=== PATIENT | female | born 1990 | race Caucasian/White ===

== ENCOUNTER 2016-06-18 21:36 | Emergency (ER) | payer OTHER ==
[~2016-06-18] VITALS: Ht 162.6 cm; Wt 57.6 kg
[2016-06-18 23:07] LABS: Basophils # (auto) 0.1 uL; Basophils % (auto) 0.9 % (0.0-2.0); Eosinophils # (auto) 0.3 uL; Eosinophils % (auto) 3.1 % (0.0-7.0); Hematocrit 42.8 % (36.0-46.0); Hemoglobin 14.1 g/dL (12.2-16.2); Lymphocytes # (auto) 3.3 uL; Lymphocytes % (auto) 37.3 % (10.0-50.0); Mean Corpuscular Hemoglobin 29.8 pg (28.0-32.0); Mean Corpuscular Hgb Conc. 32.9 g/dL (32.0-36.0); Mean Corpuscular Volume 90.5 fL (80.0-100.0); Mean Platelet Volume 7.5 fL (7.4-10.4); Monocytes # (auto) 0.6 uL; Monocytes % (auto) 6.4 % (0.0-12.0); Neutrophils # (auto) 4.6 uL; Neutrophils % (auto) 52.3 % (37.0-80.0); Platelet Count (auto) 315 10^3/uL (140-450); Red Cell Distribution Width 12.9 % (11.6-16.0); White Blood Cell 8.8 10^3/uL (4.4-10.8)
[2016-06-18 23:28] LABS: Urine Bilirubin Negative (Negative); Urine Blood Negative /uL (Negative); Urine Color Yellow (Yellow); Urine Glucose Normal (Normal); Urine Nitrite Negative (Negative); Urine RBC <1 /hpf (0 - 4); Urine Squamous Epithelial Cell FEW /hpf (<5); Urine Urobilinogen Normal (Negative); Urine pH 6.5 (5.0-8.0)
[2016-06-18 23:28] LABS: Albumin 4.1 g/dL (3.4-5.0); BUN/Creatinine Ratio 20.9; Calcium 8.8 mg/dL (8.5-10.1); Potassium 3.9 mmol/L (3.5-5.1)
[2016-06-18 23:29] LABS: Urine Ketone 1+ (Negative)
[2016-06-18 23:30] LABS: Bilirubin, Total 0.4 mg/dL (0.2-1.0); Total Protein 7.9 g/dL (6.4-8.2)
[2016-06-19 07:22] VITALS: BP 128/87
== END 2016-06-19 08:10 | disposition home or self-care (01) ==
LOC: ER 21:41
DX: R42 Dizziness and giddiness (principal); R55 Syncope and collapse; R04.0 Epistaxis; R51 Headache; R53.1 Weakness; F10.10 Alcohol abuse, uncomplicated; F41.9 Anxiety disorder, unspecified; F17.210 Nicotine dependence, cigarettes, uncomplicated; L40.9 Psoriasis, unspecified
CPT/HCPCS: 36415; 71020; 80053; 81001; 81025; 83735; 84484; 85025; 85049; 93005; 99285; G0434

== ENCOUNTER 2020-10-29 04:05 | Emergency (ER) | payer OTHER ==
[~2020-10-29] VITALS: Ht 160 cm; Wt 57.6 kg
[2020-10-29 04:07] VITALS: BP 126/75
[2020-10-29] MEDS ORDERED: ALPRAZolam 0.5 MG TAB PO ONE (04:30)
[2020-10-29] MEDS ORDERED: ONDANSETRON ODT 4 MG TAB PO ONE (04:30)
[2020-10-29 06:59] LABS: Basophils # (auto) 0 10 ^3/uL (0-0.2); Basophils % (auto) 0.6 % (0.0-2.0); Eosinophils # (auto) 0.2 10 ^3/uL (0-0.8); Eosinophils % (auto) 2.3 % (0.0-7.0); Hematocrit 40.2 % (36.0-46.0); Hemoglobin 13.5 g/dL (12.2-16.2); Lymphocytes % (auto) 23.9 % (10.0-50.0); Mean Corpuscular Hemoglobin 29.7 pg (28.0-32.0); Mean Corpuscular Hgb Conc. 33.5 g/dL (32.0-36.0); Mean Corpuscular Volume 88.5 fL (80.0-100.0); Monocytes # (auto) 0.7 10 ^3/uL (0-1.3); Monocytes % (auto) 8.4 % (0.0-12.0); Neutrophils # (auto) 5.4 10 ^3/uL (1.6-8.6); Neutrophils % (auto) 64.8 % (37.0-80.0); Platelet Count (auto) 292 10^3/uL (140-450); Red Blood Cells 4.55 10^6/uL (4.0-5.20); Red Cell Distribution Width 13.1 % (11.8-14.3); White Blood Cell 8.3 10^3/uL (4.4-10.8)
[2020-10-29 07:29] LABS: Anion Gap 5 (5-15); Blood Urea Nitrogen 13 mg/dL (7-18); Calcium 8.7 mg/dL (8.5-10.1); Carbon Dioxide 27 mmol/L (21-32); Chloride 105 mmol/L (98-107); Glucose 87 mg/dL (74-106); Potassium 3.9 mmol/L (3.5-5.1); Sodium 137 mmol/L (136-145)
[2020-10-29] MEDS ORDERED: SODIUM CHLORIDE 0.9% 1,000 ML IV ONE (07:30)
[2020-10-29 07:32] LABS: Alcohol, Urine < 3.0 mg/dL (0-10); Amphetamine Screen, Urine NEGATIVE (NEGATIVE); Barbiturate Scree,Urine NEGATIVE (NEGATIVE); Benzodiazephine Screen, Urine POSITIVE (NEGATIVE); Cannabinoid Screen, Urine POSITIVE (NEGATIVE); Cocaine Screen, Urine NEGATIVE (NEGATIVE); Opiate Scree,Urine NEGATIVE (NEGATIVE); Phencyclidine Screen, Urine NEGATIVE (NEGATIVE)
[2020-10-29 07:36] LABS: BUN/Creatinine Ratio 18.1; GFR African American 122 mL/min; GFR Non-African American 101 mL/min
== END 2020-10-29 08:35 | disposition home or self-care (01) ==
LOC: ER 04:05
DX: F41.8 Other specified anxiety disorders (principal)
CPT/HCPCS: 36415; 80048; 80307; 84443; 84484; 85025; 96360; 99283; J7030; Q0162

== ENCOUNTER 2020-12-18 18:33 | Emergency (ER) | payer OTHER ==
[~2020-12-18] VITALS: Ht 160 cm; Wt 54.4 kg
[2020-12-18 20:32] VITALS: BP 145/88
[2020-12-18] MEDS ORDERED: LORazepam 0.5 MG TAB PO ONE (22:15)
[2020-12-18] MEDS ORDERED: ONDANSETRON ODT 4 MG TAB PO ONE (22:15)
== END 2020-12-18 22:31 | disposition home or self-care (01) ==
LOC: ER 18:33
DX: F41.0 Panic disorder [episodic paroxysmal anxiety] (principal); Z76.0 Encounter for issue of repeat prescription; F17.210 Nicotine dependence, cigarettes, uncomplicated; F31.9 Bipolar disorder, unspecified
CPT/HCPCS: 99283; Q0162

== ENCOUNTER 2022-01-26 15:25 | Emergency (ER) | payer OTHER ==
[~2022-01-26] VITALS: Ht 160 cm; Wt 55.3 kg
[2022-01-26 19:11] VITALS: BP 111/82
== END 2022-01-26 21:21 | disposition home or self-care (01) ==
LOC: ER 15:25
DX: T18.9XXA Foreign body of alimentary tract, part unspecified, initial encounter (principal); X58.XXXA Exposure to other specified factors, initial encounter; Y93.9 Activity, unspecified; Y92.89 Other specified places as the place of occurrence of the external cause; Y99.8 Other external cause status; F17.210 Nicotine dependence, cigarettes, uncomplicated
CPT/HCPCS: 70491; 74018

== ENCOUNTER 2025-04-04 17:34 | Inpatient (IN) | payer BC ==
[~2025-04-04] VITALS: Ht 160 cm; Wt 54.5 kg
[~2025-04-04 17:34] MED LIST: ZOFR4T PO
[2025-04-04] MEDS: LORazepam 2MG/ML-1ML VIAL IV ONE ×2 (17:35→20:15)
--- NOTE | 2025-04-04 17:40 | ED.PDOC ---
HPI (NEURO) HPI Comments This is a 34 year old female BIBA presenting to the ED with chief complaint of seizure. EMS reports patient was witnessed by to be experiencing multiple seizures prior to their arrival. EMS relays patient has had a total of 4 seizures en route and upon arrival to the ED. EMS states patient has history of seizures, ETOH dependency, and is currently on Keppra daily. EMS notes patient's had told them patient had last drank ETOH today. BG noted to be 100 en route. Patient unable to answer questions at this time due to actively seizing. Chief Complaint: Seizure Time Seen by MD: 17:37 Reviewed Notes: Nurses Notes, Crusher Loader Equipment Operator Notes, Medications, Allergies Information Source: Emergency Med Personnel Mode of Arrival: EMS Severity: Moderate Timing: Hours Duration: Since onset Prehospital treatment: None Seizure Quality: Tonic-clonic Seizure Location: Generalized Onset: At rest Circumstances: Spontaneous, Other (Recent ETOH consumption) During: LOC After: Confusion History of: Seizure Disorder Past Medical History PAST MEDICAL HISTORY: Seizures Surgical History: Denies all surgeries CASH MANAGER History: Denies all CASH MANAGER Hx Family History Family History: Reviewed,noncontributory to illness, Family hx of DM, Family hx of Cancer, Family hx of heart willard Social History Smoker: Non-Smoker Alcohol: Heavy Drugs: Denies Drug Use Lives In: Home Constitutional: denies: chills, diaphoresis, fatigue, fever, malaise, sweats, weakness, others EENTM: denies: blurred vision, double vision, ear bleeding, ear discharge, ear drainage, ear pain, ear ringing, eye pain, eye redness, hearing loss, mouth pain, mouth swelling, nasal discharge, nose bleeding, nose congestion, nose pain, photophobia, tearing, throat pain, throat swelling, voice changes, others Respiratory: denies: cough, hemoptysis, orthopnea, SOB at rest, shortness of breath, SOB with excertion, stridor, wheezing, others Cardiovascular: denies: chest pain, dizzy spells, diaphoresis, Dyspnea on exertion, edema, irregular heart beat, left arm pain, lightheadedness, palpitations, PND, syncope, others Gastrointestinal: denies: abdomen distended, abdominal pain, blood streaked bowels, constipated, diarrhea, dysphagia, difficulty swallowing, hematemesis, melena, nausea, poor appetite, poor fluid intake, rectal bleeding, rectal pain, vomiting, others Genitourinary: denies: abnormal vagina bleeding, burning, dyspareunia, dysuria, flank pain, frequency, hematuria, incontinence, pain, , vagina discharge, urgency, others Neurological: reports: seizure; denies: dizziness, fainting, headache, left sided numbness, left sided weakness, numbness, paresthesia, pre-existing deficit, right sided numbness, right sided weakness, speech problems, tingling, tremors, weakness, others Musculoskeletal: denies: back pain, gout, joint pain, joint swelling, muscle pain, muscle stiffness, neck pain, others Integumetry: denies: bruises, change in color, change in hair/nails, dryness, laceration, lesions, lumps, rash, wounds, others Allergic/Immunocompromised: denies: Difficulty Healing, Frequent Infections, Hives, Itching, others Hematologic/Lymphatic: denies: anemia, blood clots, easy bleeding, easy bruising, swollen glands, others Endocrine: denies: excessive hunger, excessive sweating, excessive thirst, excessive urination, flushing, intolerance to cold, intolerance to heat, unexplained weight gain, unexplained weight loss, others Psychiatric: denies: anxiety, bipolar disorder, depression, hopeless, panic disorder, schizophrenia, sleepless, suicidal, others All Other Systems: Reviewed and Negative Physical Exam General Appearance: No Apparent Distress, Normal, Other (Smells of alcohol, no external signs of trauma) HEENT: Normal ENT Inspection, Pharynx Normal, TMs Normal Neck: Full Range of Motion, Non-Tender, Normal, Normal Inspection Respiratory: Chest Non-Tender, Lungs Clear, No Accessory Muscle Use, No Respiratory Distress, Normal Breath Sounds Cardiovascular: No Edema, No JVD, No Murmur, No Gallop, Normal Peripheral Pulses, Regular Rate/Rhythm Breast Exam: Deferred Gastrointestinal: No Organomegaly, Non Tender, No Pulsatile Mass, Normal Bowel Sounds, Soft Genitalia: Deferred Pelvic: Deferred Rectal: Deferred Extremities: No calf tenderness, Normal capillary refill, Normal inspection, Normal range of motion, Non-tender, No pedal edema Musculoskeletal : Apperance: Normal Neurologic: Alert, elementary school librarian II-XII nml as Tested, No Motor Deficits, Normal Affect, Normal Mood, No Sensory Deficits, Seizure, Other (Post-seizure) Cerebellar Function: Normal Reflexes: Normal Skin: Dry, Normal Color, Warm Lymphatic: No Adenopathy Was a procedure done? Was a procedure done?: No Differential Diagnosis (SZ) Seizure: Psychogenic Seizure, Alcohol Withdrawl, Hypoglycemia, Hyponatremia, Epilepsy-Break Through X-Ray, Labs, Meds, VS Vital Signs Date Time Temp Pulse Resp B/P (MAP) Pulse Ox O2 Delivery O2 Flow Rate FiO2 04/04/25 17:45 87 13 98 Room Air* 0 21 04/04/25 17:45 87 13 102/70 (81) 98 04/04/25 17:35 97.5 99 95 103/66 16 97.5 Lab Test 04/04/25 18:30 04/04/25 18:04 Range/Units Urine Test Negative Negative Urine Opiates Screen Neg NEGATIVE Urine Fentanyl Screen Neg NEGATIVE Urine Barbiturates Screen Neg NEGATIVE Urine Phencyclidine Screen Neg NEGATIVE Urine Amphetamines Screen Neg NEGATIVE Urine Benzodiazepines Screen Pos NEGATIVE Urine Cocaine Screen Neg NEGATIVE Urine Cannabinoids Screen Neg NEGATIVE White Blood Count 8.8 4.4-10.8 10^3/uL Red Blood Count 4.39 4.0-5.20 10^6/uL Hemoglobin 13.1 12.2-16.2 g/dL Hematocrit 38.5 36.0-46.0 % Mean Corpuscular Volume 87.7 80.0-100.0 fL Mean Corpuscular Hemoglobin 29.9 28.0-32.0 pg Mean Corpuscular Hemoglobin Concent 34.1 32.0-36.0 g/dL Red Cell Distribution Width 13.1 11.8-14.3 % Platelet Count 262 140-450 10^3/uL Mean Platelet Volume 7.0 6.9-10.8 fL Neutrophils (%) (Auto) 68.6 37.0-80.0 % Lymphocytes (%) (Auto) 24.6 10.0-50.0 % Monocytes (%) (Auto) 5.5 0.0-12.0 % Eosinophils (%) (Auto) 0.6 0.0-7.0 % Basophils (%) (Auto) 0.7 0.0-2.0 % Neutrophils # (Auto) 6.0 1.6-8.6 10 ^3/uL Lymphocytes # (Auto) 2.2 0.4-5.4 10 ^3/uL Monocytes # (Auto) 0.5 0-1.3 10 ^3/uL Eosinophils # (Auto) 0 0-0.8 10 ^3/uL Basophils # (Auto) 0.1 0-0.2 10 ^3/uL Nucleated Red Blood Cells 0.0 % Sodium Level 142 136-145 mmol/L Potassium Level 4.5 3.5-5.1 mmol/L Chloride Level 104 98-107 mmol/L Carbon Dioxide Level 26 20-31 mmol/L Anion Gap 12 5-15 Blood Urea Nitrogen 11 9-23 mg/dL Creatinine 0.66 0.550-1.02 mg/dL Glomerular Filtration Rate Calc 118 >90 mL/min BUN/Creatinine Ratio 16.7 10.0-20.0 Serum Glucose 91 74-106 mg/dL Calcium Level 9.2 8.7-10.4 mg/dL Magnesium Level 2.0 1.6-2.6 mg/dL Total Bilirubin 0.4 0.2-1.0 mg/dL Aspartate Amino Transferase (AST) 14 13-40 U/L Alanine Aminotransferase (ALT) 16 7-40 U/L Alkaline Phosphatase 55 46-116 U/L Total Protein 7.0 5.7-8.2 g/dL Albumin 4.4 3.2-4.8 g/dL Beta HCG, Quantitative 1.1 L 1.5-4.2 mIU/mL Plasma/Serum Blood Alcohol 304.3 H <10 mg/dL Current Medications Medications (Trade) Dose Ordered Sig/Josephine Route Start Time Stop Time Status Last Admin Sodium Chloride 1,000 ml @ 1,000 mls/hr Q1H ONCE IV 04/04/25 17:45 04/04/25 18:44 DC 04/04/25 18:06 Thiamine HCl 100 mg ONCE ONCE IV 04/04/25 17:45 04/04/25 17:46 DC 04/04/25 18:07 Folic Acid 1 mg/ Dextrose 50.2 ml @ 200.8 mls/ hr ONCE ONCE INJ 04/04/25 17:45 04/04/25 17:59 DC 04/04/25 17:45 Lorazepam (Ativan Inj) 2 mg ONCE ONCE IV 04/04/25 18:00 04/04/25 18:01 DC 04/04/25 17:35 Levetiracetam 100 ml @ 400 mls/hr ONCE ONCE IV 04/04/25 18:15 04/04/25 18:29 DC 04/04/25 18:15 Ondansetron HCl (Zofran) 4 mg ONCE ONCE IV 04/04/25 19:30 04/04/25 19:31 DC 04/04/25 20:15 Lorazepam (Ativan Inj) 2 mg ONCE ONCE IV 04/04/25 20:00 04/04/25 20:01 DC 04/04/25 20:15 Time of 1ST Reevaluation: 18:36 Reevaluation 1ST: Improved Patient Education/Counseling: Pt Unresponsive Family Education/Counseling: No Family Present Departure 1 Departure Time of Disposition: 19:45 (34-year-old female with past medical history of alcohol abuse, seizure disorder brought in for evaluation of numerous seizures noted today. History was taken from the medics got the history at home. Has had several seizures throughout the day. No noted head trauma with the seizures. For this reason does not require CT imaging of the head. Patient had another 1-2 episodes of generalized tonic-clonic seizure-like activity with the medics. Fingerstick within normal limits. Last reported alcohol beverage was prior to arrival. The patient was actively seizing upon arrival she was given 2 mg IV Ativan. Consider possible alcohol withdrawal seizure given her seizure disorder. However, alcohol level is critically elevated in the 300s, patient is currently intoxicated. Consider possible medication noncompliance, subthera peutic antiepileptic medications. Is supposed to take Keppra. Was given a 1 time IV Keppra dose here. Was also given 1 L normal saline IV fluid bolus, IV thiamine, IV folic acid given her strong history of alcohol abuse. CBC with no evidence of critical leukocytosis or significant anemia. Metabolic panel with no evidence of any acute electrolyte abnormalities or acute kidney i nsufficiency. Urine drug screen is only positive for benzodiazepines, which we did give the patient. Patient will be admitted given numerous seizures noted today.) Impression: Primary Impression: Generalized tonic-clonic seizure Additional Impressions: Alcohol abuse Alcohol poisoning Disposition: 09 ADMITTED INPATIENT Admit to: [facility] Condition: Fair Critical Care Note Critical Care Time?: Yes (30 min-critical care time only) Critical care comment: Patient with seizure disorder, alcohol abuse with numerous qiiv-ye-unhy seizures requiring IV Ativan, loading of IV Keppra, IV hydration and IV vitamins given alcohol abuse. Stability Stability form required: No Heart Score Heart Score: Heart Score Response (Comments) Value History N/A 0 EKG N/A 0 Age N/A 0 Risk Factors N/A 0 Troponin N/A 0 Total 0 I personally scribed for REGI WEBB MD ([email or web address]) on 04/04/25 at 17:40. Electronically submitted by Leno Gallegos ([email or web address]). REGI WEBB MD Apr 04, 2025 17:40
[2025-04-04 17:45] VITALS: PULSE 87; RESP 13; O2SAT 98
[2025-04-04] MEDS: FOLIC ACID 1 MG in D5W 5% 50 ML INJ ONE (17:45)
[2025-04-04] MEDS: SODIUM CHLORIDE 0.9% 1,000 ML IV ONE (18:06)
[2025-04-04] MEDS: THIAMINE 100mg/ml INJ (200mg/2ml VIAL) IV ONE (18:07)
[2025-04-04] MEDS: levETIRAcetam 1000 mg/100ml 100 ML IV ONE (18:15)
[2025-04-04 18:16] LABS: Hematocrit 38.5 % (36.0-46.0); Hemoglobin 13.1 g/dL (12.2-16.2); Mean Corpuscular Hemoglobin 29.9 pg (28.0-32.0); Mean Corpuscular Volume 87.7 fL (80.0-100.0); Nucleated Red Blood Cells % 0.0 %
[2025-04-04 18:33] LABS: Alanine Aminotransferase 16 U/L (7-40); Albumin 4.4 g/dL (3.2-4.8); Alkaline Phosphatase 55 U/L (46-116); Anion Gap 12 (5-15); BUN/Creatinine Ratio 16.7 (10.0-20.0); Blood Urea Nitrogen 11 mg/dL (9-23); Calcium 9.2 mg/dL (8.7-10.4); Carbon Dioxide 26 mmol/L (20-31); Chloride 104 mmol/L (98-107); Glucose 91 mg/dL (74-106); Magnesium 2.0 mg/dL (1.6-2.6); Potassium 4.5 mmol/L (3.5-5.1); Sodium 142 mmol/L (136-145); Total Protein 7.0 g/dL (5.7-8.2)
[2025-04-04 18:34] LABS: Bilirubin, Total 0.4 mg/dL (0.2-1.0)
[2025-04-04 19:13] LABS: Benzodiazephine Screen, Urine Pos (NEGATIVE)
[2025-04-04 19:31] LABS: Amphetamine Screen, Urine Neg (NEGATIVE); Barbiturate Scree,Urine Neg (NEGATIVE); Cannabinoid Screen, Urine Neg (NEGATIVE); Cocaine Screen, Urine Neg (NEGATIVE); Opiate Scree,Urine Neg (NEGATIVE); Phencyclidine Screen, Urine Neg (NEGATIVE)
[2025-04-04 20:00] VITALS: PULSE 85; RESP 15; TEMP 98.8; O2SAT 99
[2025-04-04] MEDS: ONDANSETRON HCL 4 MG/2 ML VIAL IV ONE (20:15)
[2025-04-04] MEDS ORDERED: DOCUSATE SOD 100 MG CAP PO PRN (20:45)
[2025-04-04] MEDS ORDERED: LORazepam 2MG/ML-1ML VIAL IV PRN (20:45)
[2025-04-04] MEDS ORDERED: HYDROcodone-ACET 5/325MG TAB PO PRN (20:45)
[2025-04-04] MEDS ORDERED: ACETAMINOPHEN 500 MG TAB or CAP PO PRN (21:00)
--- NOTE | 2025-04-04 21:40 | DVHHP2 ---
History of Present Illness Reason for Visit: Generalized tonic-clonic seizure History of Present Illness The patient is a 34-year-old female with past medical history of seizure and EtOH dependency presented to [facility] ED with complaint of seizures activities. As reported by EMS, patient was witnessed by to be experiencing multiple seizure activities prior to arrival. EMS reports that, patient had total of 4 tonic-clonic seizures before arrival to the ED. Patient was seen and evaluated in the ED, laboratory data shows WBC 8.8, platelets 262, sodium 142, potassium 4.5, BUN 11, creatinine 0.66, glucose 91, calcium 9.2, serum alcohol 304.3, blood pressure 102/70, heart rate 88, temperature 97.6 F, O2 saturation 98% on room air. Please see medication orders section in the computer. On my assessment, patient denied chest pain, no headache, dizziness, diaphoresis, shortness of breaths, no diarrhea, nausea, vomiting, fever, no chills. Patient was admitted for further evaluation and medical management. Past Medical History Seizures Past Surgical History Denies all surgeries Family History Reviewed, noncontributory to the management of this case. Past Social History The patient lives at home, denies smoking, alcohol or illicit drugs abuse. Review of Systems Constitutional: Yes: Weakness; No: Fever, Chills, Sweats, Malaise, Other Eyes: No: Pain, Vision change, Conjunctivae inflammation, Eyelid inflammation, Other, Redness ENT: No: Ear pain, Ear discharge, Nose pain, Nose discharge, Nose congestion, Mouth pain, Mouth swelling, Throat pain, Throat swelling, Other Respiratory: No: Cough, Dry, Shortness of breath, SOB with excertion, Wheezing, Hemoptysis, Pleuritic Pain, Sputum, Wheezing, Other Cardiovascular: No: Chest Pain, Palpitations, Orthopnea, Paroxysmal Noc. Dyspnea, Edema, Lt Headedness, Other Gastrointestinal: No: Nausea, Vomiting, Abdominal Pain, Diarrhea, Constipation, Melena, Hematochezia, Other Genitourinary: No Dysuria, No Frequency, No Incontinence, No Hematuria, No Retention, No Other Musculoskeletal: No: other, neck pain, shoulder pain, arm pain, back pain, hand pain, leg pain, foot pain Skin: No: Rash, Lesions, Jaundice, Bruising, Other Neurological: Seizures; No: Weakness, Numbness, Incoordination, Change in speech, Confusion, Other Allergies: Coded Allergies: NO KNOWN ALLERGIES (Unverified , 12/29/24) Medications Current Medications Medications Dose Ordered Sig/Josephine Route Start Time Stop Time Status Last Admin Dose Admin Lorazepam 1 mg Q2HP PRN IV 04/04/25 20:45 Levetiracetam 100 ml @ 400 mls/hr BID IV 04/04/25 22:00 Thiamine HCl 100 mg DAILY PO 04/05/25 10:00 Folic Acid 1 mg DAILY PO 04/05/25 10:00 Sodium Chloride 10 ml Q8HR IV 04/04/25 22:00 Acetaminophen/ Hydrocodone Bitart 1 tab Q4HP PRN PO 04/04/25 20:45 Ondansetron HCl 4 mg Q4HP PRN IV 04/04/25 20:45 Docusate Sodium 100 mg BIDPRN PRN PO 04/04/25 20:45 Acetaminophen 500 mg Q6HP PRN PO 04/04/25 21:00 Nitroglycerin 0.4 mg Q5MINP PRN SL 04/04/25 21:45 Morphine Sulfate 2 mg Q30M PRN IV 04/04/25 21:45 Exam Vital Signs Vital Signs Date Time Temp Pulse Resp B/P (MAP) Pulse Ox O2 Delivery O2 Flow Rate FiO2 04/04/25 17:45 87 13 98 Room Air* 0 21 04/04/25 17:45 102/70 (81) 04/04/25 17:35 97.5 97.5 General Appearance: Alert, Oriented X3, Cooperative, No acute distress HEENT: Atraumatic, PERRLA, EOMI, Mucous membr. moist/pink Respiratory: Clear to auscultation, Normal air movement Cardiovascular: Regular rate, Normal S1, Normal S2, No murmurs Abdominal: Normal bowel sounds, Soft, No tenderness, No hepatospenomegaly Extremities: No clubbing, No cyanosis, No edema, Normal pulses, No tender ness/swelling Skin: No rashes, No breakdown, No significant lesion Neuro: Normal speech, Normal tone, Sensation intact, Cranial nerves 3-12 NL, Reflexes 2+, Other (Seizures) Psych/Mental Status: Mental status NL, Mood NL Labs/Xrays Labs Test 04/04/25 18:30 04/04/25 18:04 Range/Units Urine Test Negative Negative Urine Opiates Screen Neg NEGATIVE Urine Fentanyl Screen Neg NEGATIVE Urine Barbiturates Screen Neg NEGATIVE Urine Phencyclidine Screen Neg NEGATIVE Urine Amphetamines Screen Neg NEGATIVE Urine Benzodiazepines Screen Pos NEGATIVE Urine Cocaine Screen Neg NEGATIVE Urine Cannabinoids Screen Neg NEGATIVE White Blood Count 8.8 4.4-10.8 10^3/uL Red Blood Count 4.39 4.0-5.20 10^6/uL Hemoglobin 13.1 12.2-16.2 g/dL Hematocrit 38.5 36.0-46.0 % Mean Corpuscular Volume 87.7 80.0-100.0 fL Mean Corpuscular Hemoglobin 29.9 28.0-32.0 pg Mean Corpuscular Hemoglobin Concent 34.1 32.0-36.0 g/dL Red Cell Distribution Width 13.1 11.8-14.3 % Platelet Count 262 140-450 10^3/uL Mean Platelet Volume 7.0 6.9-10.8 fL Neutrophils (%) (Auto) 68.6 37.0-80.0 % Lymphocytes (%) (Auto) 24.6 10.0-50.0 % Monocytes (%) (Auto) 5.5 0.0-12.0 % Eosinophils (%) (Auto) 0.6 0.0-7.0 % Basophils (%) (Auto) 0.7 0.0-2.0 % Neutrophils # (Auto) 6.0 1.6-8.6 10 ^3/uL Lymphocytes # (Auto) 2.2 0.4-5.4 10 ^3/uL Monocytes # (Auto) 0.5 0-1.3 10 ^3/uL Eosinophils # (Auto) 0 0-0.8 10 ^3/uL Basophils # (Auto) 0.1 0-0.2 10 ^3/uL Nucleated Red Blood Cells 0.0 % Sodium Level 142 136-145 mmol/L Potassium Level 4.5 3.5-5.1 mmol/L Chloride Level 104 98-107 mmol/L Carbon Dioxide Level 26 20-31 mmol/L Anion Gap 12 5-15 Blood Urea Nitrogen 11 9-23 mg/dL Creatinine 0.66 0.550-1.02 mg/dL Glomerular Filtration Rate Calc 118 >90 mL/min BUN/Creatinine Ratio 16.7 10.0-20.0 Serum Glucose 91 74-106 mg/dL Calcium Level 9.2 8.7-10.4 mg/dL Magnesium Level 2.0 1.6-2.6 mg/dL Total Bilirubin 0.4 0.2-1.0 mg/dL Aspartate Amino Transferase (AST) 14 13-40 U/L Alanine Aminotransferase (ALT) 16 7-40 U/L Alkaline Phosphatase 55 46-116 U/L Total Protein 7.0 5.7-8.2 g/dL Albumin 4.4 3.2-4.8 g/dL Beta HCG, Quantitative 1.1 L 1.5-4.2 mIU/mL Plasma/Serum Blood Alcohol 304.3 H <10 mg/dL SEPSIS Sepsis Screen Date sepsis recognized/suspect: Apr 04, 2025 Time Sepsis recognized/suspect: 1738 Recent Procedure: No On Antibiotic Therapy: No Respiratory Rate >20: No Heart Rate >90: No Temp<36 C (96.8 F) or >38.3 C: No SBP <90 or MAP <65 mmHG: No New Acute Mental Status Change: No Is the patient on CPAP, BIPAP,: No Physician Orders Lorazepam 2mg/Ml Inj (Ativan Inj) (04/04/25 20:45) Levetiracetam 500 Mg/100ml (Levetiraceta (04/04/25 22:00) Thiamine Tab (04/05/25 10:00) Folic Acid Tablet (04/05/25 10:00) Allergies (04/04/25 20:42) Code Status (04/04/25 20:42) Sodium Chloride Lock (Saline Lock Ns) (04/04/25 22:00) Oxygen Per Hour (04/04/25 20:42) Hydrocodone-Acet 5/325mg Tab ([place] 5/32 (04/04/25 20:45) Ondansetron Hcl (Zofran) (04/04/25 20:45) Docusate Sodium Capsule (Colace Capsule) (04/04/25 20:45) Fall Risk Precautions In Place QSHIFT (04/04/25 20:42) Complete Blood Count (04/05/25 04:00) Comprehensive Metabolic Panel (04/05/25 04:00) Cardiac Diet-2gna,Lofat,Lochol (04/05/25 Breakfast) Condition: Serious (04/04/25 20:42) Maintain Bed Rest (04/04/25 20:42) Sequential Compression Device (04/04/25 ) Acetaminophen Tab Or Cap (Tylenol Tablet (04/04/25 21:00) Admit (04/04/25 21:34) Nitroglycerin Sublingual (Ntrostat Subli (04/04/25 21:45) Morphine Sulfate Injection (04/04/25 21:45) Stat Ekg For Chest Pain (04/04/25 21:34) Notify Md Of Changes From Base (04/04/25 21:34) Registered Nurse Bone Marrow Transplant For 24 Hours (04/04/25 21:34) Emergency Dysrhythmia Protocol (04/04/25 21:34) Rhythm Strips Once Every Shift (04/04/25 21:34) Oxygen By Nasal Cannula (04/04/25 21:34) Vital Signs Date Time Temp Pulse Resp B/P (MAP) Pulse Ox O2 Delivery O2 Flow Rate FiO2 04/04/25 17:45 87 13 98 Room Air* 0 21 04/04/25 17:45 87 13 102/70 (81) 98 04/04/25 17:35 97.5 99 95 103/66 16 97.5 Laboratory Tests Test 04/04/25 18:04 White Blood Count 8.8 10^3/uL (4.4-10.8) Medications Medications Dose Ordered Sig/Josephine Route Start Time Stop Time Status Last Admin Dose Admin Folic Acid 1 mg/ Dextrose 50.2 ml @ 200.8 mls/ hr ONCE ONCE INJ 04/04/25 17:45 04/04/25 17:59 DC 04/04/25 17:45 200.8 MLS/HR Levetiracetam 100 ml @ 400 mls/hr ONCE ONCE IV 04/04/25 18:15 04/04/25 18:29 DC 04/04/25 18:15 400 MLS/HR Lorazepam 2 mg ONCE ONCE IV 04/04/25 18:00 04/04/25 18:01 DC 04/04/25 17:35 2 MG Lorazepam 2 mg ONCE ONCE IV 04/04/25 20:00 04/04/25 20:01 DC 04/04/25 20:15 2 MG Ondansetron HCl 4 mg ONCE ONCE IV 04/04/25 19:30 04/04/25 19:31 DC 04/04/25 20:15 4 MG Sodium Chloride 1,000 ml @ 1,000 mls/hr Q1H ONCE IV 04/04/25 17:45 04/04/25 18:44 DC 04/04/25 18:06 1,000 MLS/HR Thiamine HCl 100 mg ONCE ONCE IV 04/04/25 17:45 04/04/25 17:46 DC 04/04/25 18:07 100 MG Assessment/Plan Assessment/Plan Generalized tonic-clonic seizure Alcohol abuse Alcohol poisoning Generalized weakness Plan 1. Admit to telemetry unit 2. Breathing treatment 3. Pain control management 4. Management of fluids and electrolytes 5. Consultation for hospitalist 6. Diagnostic tests head CT 7. DVT prophylaxis-on SCDs 8. Repeat labs CBC, CMP in a.m. 9. Continue with current medical management 10. Treatment plan discussed with patient and RN. Patient verbalized understanding. Plan discussed with: Patient, Other (RN) My Orders Orders - MISSY MINOR DNP Procedure Category Date Status Time Lorazepam 2mg/Ml Inj PHA 04/04/25 In Process (Ativan Inj) 20:45 Levetiracetam 500 PHA 04/04/25 In Process Mg/100ml (Levetiraceta 22:00 Thiamine Tab PHA 04/05/25 In Process 10:00 Folic Acid Tablet PHA 04/05/25 In Process 10:00 Allergies LISA 04/04/25 In Process 20:42 Code Status CODE 04/04/25 Transmitted 20:42 Sodium Chloride Lock PHA 04/04/25 In Process (Saline Lock Ns) 22:00 Oxygen Per Hour RT 04/04/25 Transmitted 20:42 Hydrocodone-Acet PHA 04/04/25 In Process 5/325mg Tab ([place] 20:45 Ondansetron Hcl PHA 04/04/25 In Process (Zofran) 20:45 Docusate Sodium PHA 04/04/25 In Process Capsule (Colace 20:45 Fall Risk Precautions LISA 04/04/[address] 20:42 Complete Blood Count LAB 04/05/25 Verified 04:00 Comprehensive LAB 04/05/25 Verified Metabolic Panel 04:00 Cardiac DIET 04/05/25 Transmitted Diet-2gna,Lofat,Lochol Breakfast Condition: Serious LISA 04/04/25 In Process 20:42 Maintain Bed Rest LISA 04/04/25 In Process 20:42 Sequential LISA 04/04/25 In Process Compression Device Acetaminophen Tab Or PHA 04/04/25 In Process Cap (Tylenol Tablet 21:00 Admit ADMIT 04/04/25 Transmitted 21:34 Nitroglycerin [facility] 04/04/25 In Process Sublingual (Ntrostat 21:45 Morphine Sulfate [facility] 04/04/25 In Process Injection 21:45 Stat Ekg For Chest [facility] 04/04/25 In Process Pain 21:34 Notify Md Of Changes [facility] 04/04/25 In Process From Base 21:34 Registered Nurse Bone Marrow Transplant For [facility] 04/04/25 In Process 24 Hours 21:34 Emergency Dysrhythmia [facility] 04/04/25 In Process Protocol 21:34 Rhythm Strips Once [facility] 04/04/25 In Process Every Shift 21:34 Oxygen By Nasal 04/04/25 Transmitted Cannula 21:34 Problem List: (1) Generalized tonic-clonic seizure (2) Alcohol abuse (3) Alcohol poisoning (4) Generalized weakness Date of Service: Apr 04, 2025 Billing Provider: MISSY MINOR DNP Common Visit Codes: [id number] INP/OBS CARE (HIGH) MISSY MINOR DNP Apr 04, 2025 21:40
[2025-04-04] MEDS ORDERED: NITROGLYCERIN 0.4 MG SL TAB SL PRN (21:45)
[2025-04-04] MEDS ORDERED: MORPHINE SULFATE INJ 2 MG/ml SYRG IV PRN (21:45)
[2025-04-04] MEDS: SODIUM CHLOR 0.9% PF (SALINE LOCK) 10ML VIAL/SYR IV SCH (22:08)
[2025-04-04] MEDS: levETIRAcetam 500 mg/100ml 100 ML IV SCH (22:13)
[2025-04-05] MEDS: ONDANSETRON HCL 4 MG/2 ML VIAL IV PRN (00:09)
[2025-04-05] MEDS ORDERED: MELATONIN 5 MG TAB PO ONE (01:15)
[2025-04-05] MEDS: TEMAZEPAM 15 MG CAP PO ONE (01:31)
[2025-04-05 01:52] VITALS: BP 100/65; PULSE 87; RESP 16; O2SAT 94
[2025-04-05 02:20] VITALS: BP 87/51
[2025-04-05] MEDS: LACTATED RINGER'S 500 ML IV ONE (03:06)
[2025-04-05 03:34] VITALS: BP 86/52; PULSE 85; RESP 15; O2SAT 95
[2025-04-05 03:59] VITALS: BP 96/59; PULSE 85; RESP 14; O2SAT 95
[2025-04-05 04:23] LABS: Hematocrit 33.3 % (36.0-46.0); Hemoglobin 10.9 g/dL (12.2-16.2); Mean Corpuscular Hemoglobin 29.6 pg (28.0-32.0); Mean Corpuscular Volume 90.5 fL (80.0-100.0); Nucleated Red Blood Cells % 0.0 %
[2025-04-05 04:43] LABS: Albumin 3.4 g/dL (3.2-4.8); Alkaline Phosphatase 47 U/L (46-116); Anion Gap 11 (5-15); BUN/Creatinine Ratio 8.6 (10.0-20.0); Carbon Dioxide 21 mmol/L (20-31); Glucose 79 mg/dL (74-106); Potassium 4.2 mmol/L (3.5-5.1)
[2025-04-05 04:44] LABS: Alanine Aminotransferase < 9 U/L (7-40); Bilirubin, Total 0.2 mg/dL (0.2-1.0); Blood Urea Nitrogen 5 mg/dL (9-23); Calcium 7.6 mg/dL (8.7-10.4); Chloride 114 mmol/L (98-107); Sodium 146 mmol/L (136-145); Total Protein 5.7 g/dL (5.7-8.2)
[2025-04-05 05:02] VITALS: BP 97/60; PULSE 87; RESP 14; O2SAT 95
[2025-04-05] MEDS ORDERED: FOLIC ACID 1 MG TAB PO SCH (10:00)
[2025-04-05] MEDS ORDERED: THIAMINE HCL 100 MG TAB PO SCH (10:00)
--- NOTE | 2025-04-05 14:07 | DVHDS2 ---
Discharge Summary Date of Admission Apr 04, 2025 at 21:34 Date of Discharge: Apr 05, 2025 Labs/Diagnostic Data: Laboratory Results Test 04/05/25 04:06 04/04/25 18:30 04/04/25 18:04 White Blood Count 5.7 10^3/uL (4.4-10.8) Red Blood Count 3.68 10^6/uL (4.0-5.20) Hemoglobin 10.9 g/dL (12.2-16.2) Hematocrit 33.3 % (36.0-46.0) Mean Corpuscular Volume 90.5 fL (80.0-100.0) Mean Corpuscular Hemoglobin 29.6 pg (28.0-32.0) Mean Corpuscular Hemoglobin Concent 32.8 g/dL (32.0-36.0) Red Cell Distribution Width 13.8 % (11.8-14.3) Platelet Count 247 10^3/uL (140-450) Mean Platelet Volume 7.2 fL (6.9-10.8) Neutrophils (%) (Auto) 51.0 % (37.0-80.0) Lymphocytes (%) (Auto) 37.2 % (10.0-50.0) Monocytes (%) (Auto) 8.2 % (0.0-12.0) Eosinophils (%) (Auto) 2.6 % (0.0-7.0) Basophils (%) (Auto) 1.0 % (0.0-2.0) Neutrophils # (Auto) 2.9 10 ^3/uL (1.6-8.6) Lymphocytes # (Auto) 2.1 10 ^3/uL (0.4-5.4) Monocytes # (Auto) 0.5 10 ^3/uL (0-1.3) Eosinophils # (Auto) 0.1 10 ^3/uL (0-0.8) Basophils # (Auto) 0.1 10 ^3/uL (0-0.2) Nucleated Red Blood Cells 0.0 % Sodium Level 146 mmol/L (136-145) Potassium Level 4.2 mmol/L (3.5-5.1) Chloride Level 114 mmol/L (98-107) Carbon Dioxide Level 21 mmol/L (20-31) Anion Gap 11 (5-15) Blood Urea Nitrogen 5 mg/dL (9-23) Creatinine 0.58 mg/dL (0.550-1.02) Glomerular Filtration Rate Calc 122 mL/min (>90) BUN/Creatinine Ratio 8.6 (10.0-20.0) Serum Glucose 79 mg/dL (74-106) Calcium Level 7.6 mg/dL (8.7-10.4) Total Bilirubin 0.2 mg/dL (0.2-1.0) Aspartate Amino Transferase (AST) 11 U/L (13-40) Alanine Aminotransferase (ALT) < 9 U/L (7-40) Alkaline Phosphatase 47 U/L (46-116) Total Protein 5.7 g/dL (5.7-8.2) Albumin 3.4 g/dL (3.2-4.8) Urine Test Negative (Negative) Urine Opiates Screen Neg (NEGATIVE) Urine Fentanyl Screen Neg (NEGATIVE) Urine Barbiturates Screen Neg (NEGATIVE) Urine Phencyclidine Screen Neg (NEGATIVE) Urine Amphetamines Screen Neg (NEGATIVE) Urine Benzodiazepines Screen Pos (NEGATIVE) Urine Cocaine Screen Neg (NEGATIVE) Urine Cannabinoids Screen Neg (NEGATIVE) Magnesium Level 2.0 mg/dL (1.6-2.6) Beta HCG, Quantitative 1.1 mIU/mL (1.5-4.2) Plasma/Serum Blood Alcohol 304.3 mg/dL (<10) Other Laboratory Tests 04/05/25 04:06 Brief Hx & Hospital Course: 34-year-old female with past medical history of seizure and EtOH dependency presented to [facility] ED with complaint of seizures activities. As reported by EMS, patient was witnessed by to be experiencing multiple seizure activities prior to arrival. EMS reports that, patient had total of 4 tonic-clonic seizures before arrival to the ED. Patient was seen and evaluated in the ED, laboratory data shows WBC 8.8, platelets 262, sodium 142, potassium 4.5, BUN 11, creatinine 0.66, glucose 91, calcium 9.2, serum alcohol 304.3, blood pressure 102/70, heart rate 88, temperature 97.6 F, O2 saturation 98% on room air. Please see medication orders section in the computer. Patient was admitted for further evaluation and management. Patient was assigned to ia by the hospitalist team today but patient left against medical advice before completion of workup and treatment. Condition at Discharge: Undetermined Final Diagnosis/Problems List Patient left against medical advice Discharge Disposition: AMA SNF Discharge Will this Physician continue t: No Discharge Instruct/Medications Scheduled Alprazolam (Xanax), 1 TAB PO QHSP, (Reported) Levetiracetam (Keppra), 1 TAB PO BID, (Reported) Melatonin (Kp Melatonin), 1 TAB PO QPM, (Reported) Ondansetron Odt 4MG Tab (Zofran Po), 4 MG PO BID Miscellaneous Medications Acetaminophen (Tylenol), 325 MG PO, (Reported) Discharge Statement: "Patient was advised to return to the ER or call 911 if any headaches, dizziness, shortness of breath, chest pain, abdominal pain, bleeding, fevers, or worsening of medical condition. Patient was counseled about treatment plan, medications, possible side effects, patientverbalized understanding. All questions were answered to the best of my ability. This discharge took greater then 30 minutes in planning, reviewing documentation, counseling the patient, and discussing with other team members." ASSESSMENT ASSESSMENT Assessment Date of Service: Apr 05, 2025 Billing Provider: MEÑO AGRAWAL MD Common Visit Codes: 52040-PYY/OBS DISCH DAY >30min MEÑO AGRAWAL MD Apr 05, 2025 14:07
== END 2025-04-05 06:15 | disposition left against medical advice (07) | DRG 101 ==
LOC: EDBD 17:34 → ER 17:51 → EDUNIT# 21:34 → OVERFLOW 21:34
PROVIDERS: ADMIT Internal Medicine; ATTEND Internal Medicine
DX: G40.409 Other generalized epilepsy and epileptic syndromes, not intractable, without status epilepticus (principal); F10.20 Alcohol dependence, uncomplicated; T51.91XA Toxic effect of unspecified alcohol, accidental (unintentional), initial encounter; Z53.29 Procedure and treatment not carried out because of patient's decision for other reasons; Y90.9 Presence of alcohol in blood, level not specified; Z83.3 Family history of diabetes mellitus; Z82.49 Family history of ischemic heart disease and other diseases of the circulatory system
CPT/HCPCS: 36415; 80053; 80307; 80320; 81025; 83735; 84702; 85025; 96361; 96365; 96367; 96375; 99291; G0378; J2405; J7060

== ENCOUNTER 2025-04-06 20:55 | Inpatient (IN) | payer BC ==
[~2025-04-06] VITALS: Ht 167.6 cm; Wt 54.4 kg
[2025-04-06] MEDS: ONDANSETRON HCL 4 MG/2 ML VIAL IV ONE ×2 (21:13→21:38)
[2025-04-06] MEDS: LORazepam 2MG/ML-1ML VIAL ONE (21:14)
[2025-04-06] MEDS: levETIRAcetam 1000 mg/100ml 100 ML IV ONE (21:14)
[2025-04-06] MEDS: LORazepam 2MG/ML-1ML VIAL IV ONE ×2 (21:14→22:30)
[2025-04-06] MEDS: ONDANSETRON HCL 4 MG/2 ML VIAL ONE ×2 (21:17→21:38)
[2025-04-06] MEDS: SODIUM CHLORIDE 0.9% 1,000 ML IV ONE (21:22)
--- NOTE | 2025-04-06 21:38 | ED.PDOC ---
HPI (NEURO) HPI Comments 34-year-old female brought in by ambulance for chief complaint of seizure. Significant history of seizure induced by alcohol. Patient reports on drinking, earlier, today. Per EMS personnel report no signs of trauma or incontinence. 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 Family History Family History: Reviewed,noncontributory to illness, Family hx of DM, Family hx of Cancer, Family hx of heart willard Social History Smoker: Non-Smoker Alcohol: Heavy Drugs: Denies Drug Use Lives In: Home All Other Systems: Reviewed and Negative (Comprehensive review of systems are negative unless otherwise stated in HPI) Physical Exam General Appearance: No Apparent Distress, Normal HEENT: Normal ENT Inspection, Pharynx Normal, TMs Normal Neck: Full Range of Motion, Non-Tender, Normal, Normal Inspection Respiratory: Chest Non-Tender, Lungs Clear, No Accessory Muscle Use, No Respiratory Distress, Normal Breath Sounds Cardiovascular: No Edema, No JVD, No Murmur, No Gallop, Normal Peripheral Pulses, Regular Rate/Rhythm Breast Exam: Deferred Gastrointestinal: No Organomegaly, Non Tender, No Pulsatile Mass, Normal Bowel Sounds, Soft Genitalia: Deferred Pelvic: Deferred Rectal: Deferred Extremities: No calf tenderness, Normal capillary refill, Normal inspection, Normal range of motion, Non-tender, No pedal edema Musculoskeletal : Apperance: Normal Neurologic: Other (Patient is postictal) Cerebellar Function: Normal Reflexes: Normal Skin: Dry, Normal Color, Warm Lymphatic: No Adenopathy Was a procedure done? Was a procedure done?: No Differential Diagnosis (SZ) Seizure: Hyperventilation, Psychogenic Seizure, Alcohol Withdrawl, Anticon vulsant Withdrawl, Drug Ingestion, Hypocalcemia, Hypoglycemia, Hyponatremia, Syncope, Epilepsy-Break Through, Epilepsy-Status X-Ray, Labs, Meds, VS Vital Signs Date Time Temp Pulse Resp B/P (MAP) Pulse Ox O2 Delivery O2 Flow Rate FiO2 04/06/25 21:13 97.7 88 16 95/64 98 97.7 04/06/25 21:07 97.7 84 17 108/47 (67) 99 97.7 Current Medications Medications (Trade) Dose Ordered Sig/Josephine Route Start Time Stop Time Status Last Admin Lorazepam (Ativan Inj) 2 mg ONCE ONCE IV 04/06/25 21:15 04/06/25 21:16 DC 04/06/25 21:14 Levetiracetam 100 ml @ 400 mls/hr ONCE ONCE IV 04/06/25 21:15 04/06/25 21:29 DC 04/06/25 21:14 Sodium Chloride 1,000 ml @ 1,000 mls/hr Q1H ONCE IV 04/06/25 21:15 04/06/25 22:14 04/06/25 21:22 Ondansetron HCl (Zofran) 4 mg ONCE ONCE IV 04/06/25 21:15 04/06/25 21:16 DC 04/06/25 21:13 Time of 1ST Reevaluation: 21:30 Reevaluation 1ST: Unchanged Patient Education/Counseling: Diagnosis, Treatment, Other (Need for ED observa tion) Family Education/Counseling: No Family Present Departure 1 Departure Time of Disposition: 21:38 (Patient with multiple episodes of seizures. Patient is frequently seen here. We will observe patient. Patient will be signed out to nighttime doctor) Impression: Primary Impression: Recurrent seizures Additional Impression: Alcohol use Disposition: 30 STILL A PATIENT Condition: Serious Critical Care Note Critical Care Time?: No Stability Stability form required: No Heart Score Heart Score: Heart Score Response (Comments) Value History N/A 0 EKG N/A 0 Age N/A 0 Risk Factors N/A 0 Troponin N/A 0 Total 0 I personally scribed for CHERYL GONZALEZ MD ([email or web address]) on 04/06/25 at 21:38. Electronically submitted by Ernie Mathis [email or web address]). CHERYL GONZALEZ MD Apr 06, 2025 21:38
[2025-04-06 22:52] LABS: Hematocrit 34.5 % (36.0-46.0); Hemoglobin 11.7 g/dL (12.2-16.2); Mean Corpuscular Hemoglobin 29.8 pg (28.0-32.0); Mean Corpuscular Volume 88.2 fL (80.0-100.0); Nucleated Red Blood Cells % 0.2 %
[2025-04-06 23:15] LABS: Alanine Aminotransferase 11 U/L (7-40); Albumin 3.8 g/dL (3.2-4.8); Alkaline Phosphatase 48 U/L (46-116); Anion Gap 16 (5-15); BUN/Creatinine Ratio 8.7 (10.0-20.0); Carbon Dioxide 30 mmol/L (20-31); Chloride 103 mmol/L (98-107); Glucose 90 mg/dL (74-106); Magnesium 1.8 mg/dL (1.6-2.6); Potassium 3.8 mmol/L (3.5-5.1); Total Protein 6.2 g/dL (5.7-8.2)
--- NOTE | 2025-04-06 23:18 | DVH ---
CHEST RADIOGRAPH Indication: seizure Technique: Single frontal view of the chest was obtained COMPARISON: XY CHEST XRAY 1 VIEW on DOS: 02/06/25, XY CHEST PORTABLE on DOS: 01/22/25 FINDINGS: Lungs and pleural spaces are clear. Cardiac silhouette and refugio are within normal limits. Bones and soft tissues demonstrate no significant abnormality. IMPRESSION: No acute disease.
[2025-04-06 23:19] LABS: Bilirubin, Total 0.3 mg/dL (0.2-1.0); Blood Urea Nitrogen 6 mg/dL (9-23); Calcium 8.1 mg/dL (8.7-10.4); Sodium 149 mmol/L (136-145)
--- NOTE | 2025-04-07 01:25 | DVHHP2 ---
History of Present Illness Reason for Visit: Recurrent seizure History of Present Illness The patient is a 34-year-old female with past medical history of seizure and EtOH abuse who presented to [facility] ED with complaint of seizures activity. Patient reports on heavy drinking, earlier, today. Patient was seen a nd evaluated in the ED, laboratory data shows WBC 5.1, hemoglobin 11.7, hematocrit 34.5, platelets 242, sodium 149, potassium 3.8, BUN 6, creatinine 0.69, GFR 117, glucose 90, anion gap 16, lactic acid 1.4, calcium 8.1, magnesium 1.8, troponin 3, serum alcohol 264.7, blood pressure 108/47, heart rate 88, temperature 97.7 F, O2 saturation 98% on room air. Chest x-ray show no acute disease. Head CT on March 10, 2025 showed no acute intracranial abnormality. Please see medication orders section in the computer. On my assessment, patient denied chest pain, no headache, dizziness, diaphoresis, shortness of breaths, no nausea, vomiting, fever, no chills. Patient was admitted for further evaluation and medical management. Past Medical History Seizures Past Surgical History Denies all surgeries Family History Reviewed, noncontributory to the management of this case. Past Social History The patient lives at home, drinks alcohol heavily, denies smoking or illicit drugs abuse. Review of Systems Constitutional: Yes: Weakness; No: Fever, Chills, Sweats, Malaise, Other Eyes: No: Pain, Vision change, Conjunctivae inflammation, Eyelid inflammation, Other, Redness ENT: No: Ear pain, Ear discharge, Nose pain, Nose discharge, Nose congestion, Mouth pain, Mouth swelling, Throat pain, Throat swelling, Other Respiratory: No: Cough, Dry, Shortness of breath, SOB with excertion, Wheezing, Hemoptysis, Pleuritic Pain, Sputum, Wheezing, Other Cardiovascular: No: Chest Pain, Palpitations, Orthopnea, Paroxysmal Noc. Dyspnea, Edema, Lt Headedness, Other Gastrointestinal: No: Nausea, Vomiting, Abdominal Pain, Diarrhea, Constipation, Melena, Hematochezia, Other Genitourinary: No Dysuria, No Frequency, No Incontinence, No Hematuria, No Retention, No Other Musculoskeletal: No: other, neck pain, shoulder pain, arm pain, back pain, hand pain, leg pain, foot pain Skin: No: Rash, Lesions, Jaundice, Bruising, Other Neurological: Seizures; No: Weakness, Numbness, Incoordination, Change in speech, Confusion, Other Allergies: Coded Allergies: NO KNOWN ALLERGIES (Unverified , 06/19/16) Exam Vital Signs Vital Signs Date Time Temp Pulse Resp B/P (MAP) Pulse Ox O2 Delivery O2 Flow Rate FiO2 04/06/25 21:13 97.7 88 16 95/64 98 97.7 General Appearance: Alert, Oriented X3, Cooperative, No acute distress HEENT: Atraumatic, PERRLA, EOMI, Mucous membr. moist/pink Respiratory: Normal air movement Cardiovascular: Regular rate, Normal S1, Normal S2, No murmurs Abdominal: Normal bowel sounds, Soft, No tenderness, No hepatospenomegaly, No masses Extremities: No clubbing, No cyanosis, No edema, Normal pulses, No tenderness/swelling Skin: No rashes, No significant lesion Neuro: Normal speech, Normal tone, Sensation intact, Cranial nerves 3-12 NL, Reflexes 2+, Other (Generalized weakness) Psych/Mental Status: Mental status NL, Mood NL Labs/Xrays Labs Test 04/06/25 22:32 Range/Units White Blood Count 5.1 4.4-10.8 10^3/uL Red Blood Count 3.92 L 4.0-5.20 10^6/uL Hemoglobin 11.7 L 12.2-16.2 g/dL Hematocrit 34.5 L 36.0-46.0 % Mean Corpuscular Volume 88.2 80.0-100.0 fL Mean Corpuscular Hemoglobin 29.8 28.0-32.0 pg Mean Corpuscular Hemoglobin Concent 33.8 32.0-36.0 g/dL Red Cell Distribution Width 13.8 11.8-14.3 % Platelet Count 242 140-450 10^3/uL Mean Platelet Volume 7.0 6.9-10.8 fL Neutrophils (%) (Auto) 35.6 L 37.0-80.0 % Lymphocytes (%) (Auto) 51.7 H 10.0-50.0 % Monocytes (%) (Auto) 7.8 0.0-12.0 % Eosinophils (%) (Auto) 3.7 0.0-7.0 % Basophils (%) (Auto) 1.2 0.0-2.0 % Neutrophils # (Auto) 1.8 1.6-8.6 10 ^3/uL Lymphocytes # (Auto) 2.6 0.4-5.4 10 ^3/uL Monocytes # (Auto) 0.4 0-1.3 10 ^3/uL Eosinophils # (Auto) 0.2 0-0.8 10 ^3/uL Basophils # (Auto) 0.1 0-0.2 10 ^3/uL Nucleated Red Blood Cells 0.2 % Sodium Level 149 H 136-145 mmol/L Potassium Level 3.8 3.5-5.1 mmol/L Chloride Level 103 # 98-107 mmol/L Carbon Dioxide Level 30 20-31 mmol/L Anion Gap 16 H 5-15 Blood Urea Nitrogen 6 L 9-23 mg/dL Creatinine 0.69 0.550-1.02 mg/dL Glomerular Filtration Rate Calc 117 >90 mL/min BUN/Creatinine Ratio 8.7 L 10.0-20.0 Serum Glucose 90 74-106 mg/dL Lactic Acid Level 1.4 0.4-2.0 mmol/L Calcium Level 8.1 L 8.7-10.4 mg/dL Magnesium Level 1.8 1.6-2.6 mg/dL Total Bilirubin 0.3 0.2-1.0 mg/dL Aspartate Amino Transferase (AST) 15 13-40 U/L Alanine Aminotransferase (ALT) 11 7-40 U/L Alkaline Phosphatase 48 46-116 U/L Troponin I High Sensitivity < 3 L </=34 ng/L Total Protein 6.2 5.7-8.2 g/dL Albumin 3.8 3.2-4.8 g/dL Plasma/Serum Blood Alcohol 264.7 H <10 mg/dL PATIENT: JOHNY RANDOLPH ACCT: [id number] UNIT: [id number] : 1990 LOC: ER ROOM / BED: / AGE / SEX: 34 / F ADM STATUS: REG ER SERVICE 23 ORDERING PHYSICIAN: ARTEMIO WALLS DO PROCEDURE(s): CXRP - CHEST PORTABLE REASON: seizure ORDER NUMBER(s): [id number], ACCESSION NUMBER(s): [id number] CHEST RADIOGRAPH Indication: seizure Technique: Single frontal view of the chest was obtained COMPARISON: XY CHEST XRAY 1 VIEW on DOS: 02/06/25, XY CHEST PORTABLE on DOS: 01/22/25 FINDINGS: Lungs and pleural spaces are clear. Cardiac silhouette and refugio are within normal limits. Bones and soft tissues demonstrate no significant abnormality. IMPRESSION: No acute disease. SEPSIS Sepsis Screen Date sepsis recognized/suspect: Apr 06, 2025 Time Sepsis recognized/suspect: 2118 Recent Procedure: No On Antibiotic Therapy: No Respiratory Rate >20: No Heart Rate >90: No Temp<36 C (96.8 F) or >38.3 C: No SBP <90 or MAP <65 mmHG: No New Acute Mental Status Change: No Is the patient on CPAP, BIPAP,: No Physician Orders Regulator Operator (04/06/25 ) Seizure Precautions (04/06/25 ) Drug Screen (04/06/25 22:24) Urinalysis (04/06/25 22:24) Chest Portable (04/06/25 22:24) Electrocardigram (04/06/25 22:24) Complete Blood Count (04/07/25 04:00) Comprehensive Metabolic Panel (04/07/25 04:00) Lorazepam 2mg/Ml Inj (Ativan Inj) (04/07/25 01:30) Levetiracetam Ivpb Keppra (04/07/25 10:00) Folic Acid Tablet (04/07/25 10:00) Thiamine Tab (04/07/25 10:00) Admit (04/07/25 01:19) Allergies (04/07/25 01:19) Code Status (04/07/25 01:19) Sodium Chloride Lock (Saline Lock Ns) (04/07/25 06:00) Oxygen Per Hour (04/07/25 01:19) Hydrocodone-Acet 5/325mg Tab ([place] 5/32 (04/07/25 01:30) Ondansetron Hcl (Zofran) (04/07/25 01:30) Docusate Sodium Capsule (Colace Capsule) (04/07/25 01:30) Fall Risk Precautions In Place QSHIFT (04/07/25 01:19) Complete Blood Count (04/08/25 04:00) Comprehensive Metabolic Panel (04/08/25 04:00) Cardiac Diet-2gna,Lofat,Lochol (04/07/25 Breakfast) Condition: Serious (04/07/25 01:19) Acetaminophen Tablet (Tylenol Tablet) (04/07/25 01:30) Vital Signs Date Time Temp Pulse Resp B/P (MAP) Pulse Ox O2 Delivery O2 Flow Rate FiO2 04/06/25 21:13 97.7 88 16 95/64 98 97.7 04/06/25 21:07 97.7 84 17 108/47 (67) 99 97.7 Laboratory Tests Test 04/06/25 22:32 Lactic Acid Level 1.4 mmol/L (0.4-2.0) White Blood Count 5.1 10^3/uL (4.4-10.8) Medications Medications Dose Ordered Sig/Josephine Route Start Time Stop Time Status Last Admin Dose Admin Levetiracetam 100 ml @ 400 mls/hr ONCE ONCE IV 04/06/25 21:15 04/06/25 21:29 DC 04/06/25 21:14 400 MLS/HR Lorazepam 2 mg ONCE ONCE IV 04/06/25 21:15 04/06/25 21:16 DC 04/06/25 21:14 2 MG Lorazepam 2 mg ONCE ONCE IV 04/06/25 22:30 04/06/25 22:31 DC 04/06/25 22:30 2 MG Ondansetron HCl 4 mg ONCE ONCE IV 04/06/25 21:15 04/06/25 21:16 DC 04/06/25 21:13 4 MG Ondansetron HCl 4 mg ONCE ONCE IV 04/06/25 21:45 04/06/25 21:46 DC 04/06/25 21:38 4 MG Sodium Chloride 1,000 ml @ 1,000 mls/hr Q1H ONCE IV 04/06/25 21:15 04/06/25 22:14 DC 04/06/25 21:22 1,000 MLS/HR Assessment/Plan Assessment/Plan Recurrent seizures Alcohol use Electrolyte imbalance Generalized weakness Plan 1. Admit to telemetry unit 2. Breathing treatment 3. Pain control management 4. Management of fluids and electrolytes 5. Consultation for hospitalist 6. Diagnostic tests chest x-ray 7. DVT prophylaxis-on SCDs 8. Repeat labs CBC, CMP in a.m. 9. Continue with current medical management 10. Treatment plan discussed with patient and RN. Patient verbalized understanding. Plan discussed with: Patient, Other (RN) My Orders Orders - MISSY MINOR DNP Procedure Category Date Status Time Complete Blood Count LAB 04/07/25 Verified 04:00 Comprehensive LAB 04/07/25 Verified Metabolic Panel 04:00 Lorazepam 2mg/Ml Inj PHA 04/07/25 Verified (Ativan Inj) 01:30 Levetiracetam Ivpb PHA 04/07/25 Verified Keppra 10:00 Folic Acid Tablet PHA 04/07/25 Verified 10:00 Thiamine Tab PHA 04/07/25 Verified 10:00 Admit ADMIT 04/07/25 Verified 01:19 Allergies LISA 04/07/25 Verified 01:19 Code Status CODE 04/07/25 Verified 01:19 Sodium Chloride Lock PHA 04/07/25 Verified (Saline Lock Ns) 06:00 Oxygen Per Hour RT 04/07/25 Verified 01:19 Hydrocodone-Acet PHA 04/07/25 Verified 5/325mg Tab ([place] 01:30 Ondansetron Hcl PHA 04/07/25 Verified (Zofran) 01:30 Docusate Sodium PHA 04/07/25 Verified Capsule (Colace 01:30 Fall Risk Precautions LISA 04/07/[address] 01:19 Complete Blood Count LAB 04/08/25 Verified 04:00 Comprehensive LAB 04/08/25 Verified Metabolic Panel 04:00 Cardiac DIET 04/07/25 Verified Diet-2gna,Lofat,Lochol Breakfast Condition: Serious LISA 04/07/25 Verified 01:19 Acetaminophen Tablet PHA 04/07/25 Verified (Tylenol Tablet) 01:30 Problem List: (1) Recurrent seizures (2) Alcohol use (3) Electrolyte imbalance (4) Generalized weakness Date of Service: Apr 07, 2025 Billing Provider: MISSY MINOR DNP Common Visit Codes: [id number] INP/OBS CARE (HIGH) MISSY MINOR DNP Apr 07, 2025 01:25
[2025-04-07] MEDS ORDERED: LORazepam 2MG/ML-1ML VIAL IV PRN (01:30)
[2025-04-07] MEDS ORDERED: DOCUSATE SOD 100 MG CAP PO PRN (01:30)
[2025-04-07] MEDS ORDERED: D5W 5% 1,000 ML IV SCH (01:30)
[2025-04-07] MEDS ORDERED: NITROGLYCERIN 0.4 MG SL TAB SL PRN (01:30)
[2025-04-07] MEDS ORDERED: ONDANSETRON HCL 4 MG/2 ML VIAL IV PRN (01:30)
[2025-04-07] MEDS ORDERED: HYDROcodone-ACET 5/325MG TAB PO PRN (01:30)
[2025-04-07] MEDS ORDERED: MORPHINE SULFATE INJ 2 MG/ml SYRG IV PRN (01:30)
[2025-04-07] MEDS ORDERED: ACETAMINOPHEN 325 MG TAB PO PRN (01:30)
[2025-04-07] MEDS ORDERED: CALCIUM GLUC 1,000mg/50ml-NS 50 ML IV ONE (01:30)
[2025-04-07 02:00] VITALS: BP 85/34; PULSE 80; RESP 18; TEMP 97.7; O2SAT 95
[2025-04-07 02:28] LABS: Hematocrit 33.0 % (36.0-46.0); Hemoglobin 11.2 g/dL (12.2-16.2); Mean Corpuscular Hemoglobin 30.0 pg (28.0-32.0); Mean Corpuscular Volume 87.9 fL (80.0-100.0); Nucleated Red Blood Cells % 0.0 %
[2025-04-07 03:10] LABS: Alanine Aminotransferase 11 U/L (7-40); Alkaline Phosphatase 50 U/L (46-116); Anion Gap 11 (5-15); BUN/Creatinine Ratio 12.3 (10.0-20.0); Carbon Dioxide 26 mmol/L (20-31); Glucose 86 mg/dL (74-106); Potassium 3.6 mmol/L (3.5-5.1); Total Protein 6.0 g/dL (5.7-8.2)
[2025-04-07 03:11] LABS: Albumin 3.7 g/dL (3.2-4.8)
[2025-04-07 03:21] LABS: Bilirubin, Total 0.2 mg/dL (0.2-1.0); Blood Urea Nitrogen 7 mg/dL (9-23); Calcium 8.0 mg/dL (8.7-10.4); Chloride 112 mmol/L (98-107); Sodium 149 mmol/L (136-145)
[2025-04-07] MEDS ORDERED: SODIUM CHLOR 0.9% PF (SALINE LOCK) 10ML VIAL/SYR IV SCH (06:00)
[2025-04-07] MEDS ORDERED: THIAMINE HCL 100 MG TAB PO SCH (10:00)
[2025-04-07] MEDS ORDERED: FOLIC ACID 1 MG TAB PO SCH (10:00)
[2025-04-07] MEDS ORDERED: levETIRAcetam 500 mg/100ml 100 ML IV SCH (10:00)
--- NOTE | 2025-04-07 13:43 | DVHDS2 ---
Discharge Summary Date of Admission Apr 07, 2025 at 01:19 Date of Discharge: Apr 07, 2025 Labs/Diagnostic Data: Laboratory Results Test 04/07/25 02:05 04/06/25 22:32 White Blood Count 5.3 10^3/uL (4.4-10.8) Red Blood Count 3.75 10^6/uL (4.0-5.20) Hemoglobin 11.2 g/dL (12.2-16.2) Hematocrit 33.0 % (36.0-46.0) Mean Corpuscular Volume 87.9 fL (80.0-100.0) Mean Corpuscular Hemoglobin 30.0 pg (28.0-32.0) Mean Corpuscular Hemoglobin Concent 34.1 g/dL (32.0-36.0) Red Cell Distribution Width 13.6 % (11.8-14.3) Platelet Count 247 10^3/uL (140-450) Mean Platelet Volume 6.9 fL (6.9-10.8) Neutrophils (%) (Auto) 29.1 % (37.0-80.0) Lymphocytes (%) (Auto) 55.2 % (10.0-50.0) Monocytes (%) (Auto) 9.0 % (0.0-12.0) Eosinophils (%) (Auto) 5.6 % (0.0-7.0) Basophils (%) (Auto) 1.1 % (0.0-2.0) Neutrophils # (Auto) 1.5 10 ^3/uL (1.6-8.6) Lymphocytes # (Auto) 2.9 10 ^3/uL (0.4-5.4) Monocytes # (Auto) 0.5 10 ^3/uL (0-1.3) Eosinophils # (Auto) 0.3 10 ^3/uL (0-0.8) Basophils # (Auto) 0.1 10 ^3/uL (0-0.2) Nucleated Red Blood Cells 0.0 % Sodium Level 149 mmol/L (136-145) Potassium Level 3.6 mmol/L (3.5-5.1) Chloride Level 112 mmol/L (98-107) Carbon Dioxide Level 26 mmol/L (20-31) Anion Gap 11 (5-15) Blood Urea Nitrogen 7 mg/dL (9-23) Creatinine 0.57 mg/dL (0.550-1.02) Glomerular Filtration Rate Calc 122 mL/min (>90) BUN/Creatinine Ratio 12.3 (10.0-20.0) Serum Glucose 86 mg/dL (74-106) Calcium Level 8.0 mg/dL (8.7-10.4) Total Bilirubin 0.2 mg/dL (0.2-1.0) Aspartate Amino Transferase (AST) 12 U/L (13-40) Alanine Aminotransferase (ALT) 11 U/L (7-40) Alkaline Phosphatase 50 U/L (46-116) Total Protein 6.0 g/dL (5.7-8.2) Albumin 3.7 g/dL (3.2-4.8) Lactic Acid Level 1.4 mmol/L (0.4-2.0) Magnesium Level 1.8 mg/dL (1.6-2.6) Troponin I High Sensitivity < 3 ng/L (</=34) Plasma/Serum Blood Alcohol 264.7 mg/dL (<10) Other Laboratory Tests 04/07/25 02:05 Brief Hx & Hospital Course: The patient is a 34-year-old female with past medical history of seizure and EtOH abuse who presented to [facility] ED with complaint of seizures activity. Patient reports on heavy drinking, earlier, today. Patient was seen and evaluated in the ED, laboratory data shows WBC 5.1, hemoglobin 11.7, hematocrit 34.5, platelets 242, sodium 149, potassium 3.8, BUN 6, creatinine 0.69, GFR 117, glucose 90, anion gap 16, lactic acid 1.4, calcium 8.1, magnesium 1.8, troponin 3, serum alcohol 264.7, blood pressure 108/47, heart rate 88, temperature 97.7 F, O2 saturation 98% on room air. Chest x-ray show no acute disease. Head CT on March 10, 2025 showed no acute intracranial abnormality. Please see medication orders section in the computer. On my assessment, patient denied chest pain, no headache, dizziness, diaphoresis, shortness of breaths, no nausea, vomiting, fever, no chills. Patient was admitted for further evaluation and medical management. This patient was assigned to me today for continuation of care viral with the hospitalist team. Before I came to see the patient patient's has already left against medical advice. Condition at Discharge: Undetermined Final Diagnosis/Problems List Seizures Alcoholic intoxication Patient left against medical advice. Discharge Disposition: AMA SNF Discharge Will this Physician continue t: No Discharge Instruct/Medications Scheduled Ondansetron Odt 4MG Tab (Zofran Po), 4 MG PO BID Discharge Statement: "Patient was advised to return to the ER or call 911 if any headaches, dizziness, shortness of breath, chest pain, abdominal pain, bleeding, fevers, or worsening of medical condition. Patient was counseled about treatment plan, medications, possible side effects, patientverbalized understanding. All questions were answered to the best of my ability. This discharge took greater then 30 minutes in planning, reviewing documentation, counseling the patient, and discussing with other team members." ASSESSMENT ASSESSMENT Assessment Date of Service: Apr 07, 2025 Billing Provider: MEÑO AGRAWAL MD Common Visit Codes: 18441-ITX/OBS DISCH DAY >30min MEÑO AGRAWAL MD Apr 07, 2025 13:43
[2025-04-07] MEDS ORDERED: ACET650T12 PO (23:23)
[2025-04-07] MEDS ORDERED: IBUP-1454 PO (23:23)
== END 2025-04-07 06:40 | disposition left against medical advice (07) | DRG 101 ==
LOC: EDBD 20:55 → EDUNIT# 20:55 → ER 20:55 → OVERFLOW 04-07 01:19
PROVIDERS: ATTEND Internal Medicine
DX: G40.909 Epilepsy, unspecified, not intractable, without status epilepticus (principal); F10.129 Alcohol abuse with intoxication, unspecified; Z53.29 Procedure and treatment not carried out because of patient's decision for other reasons; Y90.8 Blood alcohol level of 240 mg/100 ml or more; Z80.9 Family history of malignant neoplasm, unspecified; Z83.3 Family history of diabetes mellitus; Z82.49 Family history of ischemic heart disease and other diseases of the circulatory system
CPT/HCPCS: 36415; 71045; 80053; 80320; 83605; 83735; 84484; 85025; G0378; J2405

== ENCOUNTER 2025-04-07 16:20 | Emergency (ER) | payer BC ==
[~2025-04-07] VITALS: Ht 160 cm; Wt 54.0 kg
[2025-04-07 16:44] VITALS: PULSE 76; RESP 14; O2SAT 97
[2025-04-07] MEDS: HYDROcodone-ACET 10/325MG TAB PO ONE (17:22)
[2025-04-07] MEDS: KETOROLAC TROMETH 30 MG/ML 1ML VIAL IV ONE (18:51)
[2025-04-07] MEDS: ONDANSETRON HCL 4 MG/2 ML VIAL IV ONE (18:51)
[2025-04-07] MEDS: MORPHINE SULFATE INJ 2 MG/ml SYRG IV ONE (19:00)
[2025-04-07] MEDS: levETIRAcetam 500 mg/100ml 100 ML IV ONE (19:00)
--- NOTE | 2025-04-07 19:09 | ED.PDOC ---
History of Present Illness HPI Comments 34 y/o F is BIBA for c/c multiple puncture wounds to right hand and thigh and generalized bruising with associated pain. Patient reports on her two pet dogs getting into a fight and getting bitten and injured by them when attempting to stop them, earlier, this evening. No reported head injury or lost of con sciousness then. Bleeding is controlled. En route to ED, patient is reported to have had 1x spontaneous seizure episode. Last seizure was yesterday, with accompanying ED visit, which patient comments on leaving AMA prior to today's events. She states on taking 1000mg Keppra BID and getting seizures, frequently, 3-7 times/week. She denies any further acute symptoms. REVIEW OF SYSTEMS: General: No fever, no chills, or fatigue HEENT: No sore throat, no earache, no congestion, no neck pain. Cardiac: No chest pain. No palpitations. Lungs: No shortness of breath, no cough. GI: No nausea, no vomiting, no diarrhea, no constipation, no abdominal pain : No dysuria, frequency, or urgency. No hematuria. Musculoskeletal: Right hand and thigh pain, No joint pain , no joint swelling, no extremity edema. Skin: Puncture wounds to right hand and thigh; No rash, no itching. Neuro: No headache, no dizziness, no weakness (And as stated in HPI) PHYSICAL EXAM: General: Awake, alert and oriented. No acute distress. Skin: 3x right anterior thight puncture wounds; 2x puncture wound to right thenor; 1x puncture wound to right medial side of lower hand. otherwise, remaining skin is warm, dry and intact. Appropriate color for ethnicity. HEENT: The head is normocephalic and atraumatic. Conjunctivae are clear without exudates or hemorrhage. Sclera is non-icteric. Eyelids are normal in appearance without swelling or lesions. Oral mucosa is pink and moist Neck: The neck is supple with normal range of motion. No JVD. Cardiac: Heart rate and rhythm are normal. No murmurs, gallops, or rubs are auscultated. Respiratory: No signs of respiratory distress. Lung sounds are clear in all lobes bilaterally without rales, rhonchi, or wheezes. Abdominal: Abdomen is soft, non-tender without distention, guarding or rigidity. Bowel sounds are present and normoactive in all four quadrants. Extremities: Upper and lower extremities are atraumatic in appearance without deformity or edema. Neurological: The patient is awake, alert and oriented to person, place, and time with normal speech. Speech is clear. There is no facial asymmetry. No apparent neuro deficit. Psychiatric: Appropriate mood and affect. Good judgement and insight. Chief Complaint: Seizure Time Seen by MD: 18:20 Primary Care Provider: Rafael Vieyra Notes: Nurses Notes, Medications, Allergies Allergies: Coded Allergies: NO KNOWN ALLERGIES (Unverified , 06/19/16) Home Meds Active Scripts Ondansetron Odt 4MG Tab (ZOFRAN PO) 4 Mg Tb, 4 MG PO BID for 5 Days, #10 TAB ODT TAB-DISSOLVE IN MOUTH, THEN SWALLOW Prov:KELSEY BERNARD RESIDENT 01/26/25 Information Source: Patient, Emergency Med Personnel Mode of Arrival: EMS Severity: Moderate Timing: Hours Duration: Minutes Prehospital treatment: None Past Medical History PAST MEDICAL HISTORY: Anxiety, Seizures Surgical History: Unknown FUEL ASSEMBLER History: No Pertinent FUEL ASSEMBLER History Family History Family History: Unknown Social History Smoker: Cigarettes, Less Than 1 Pack/Day Alcohol: Occasionally Drugs: Denies Drug Use Lives In: Home Was a procedure done? Was a procedure done?: No Differential Dx Considerations may include: Differential diagnoses considered include but are not limited to epilepsy/seizure disorder, HOSPITAL TECHNICIAN infection, electrolyte disturbance, CVA, TBI, drug toxicity or overdose, hypoxia, hypertensive emergency, brain tumor/mass, syncope, movement disorder, puncture wounds, retained foreign body, avulsions, lacerations, ecchymosis, contusions, among others X-Ray, Labs, Meds, VS Vital Signs Date Time Temp Pulse Resp B/P (MAP) Pulse Ox O2 Delivery O2 Flow Rate FiO2 04/07/25 21:39 70 16 119/77 04/07/25 20:00 98.1 79 19 122/90 (101) 97 98.1 04/07/25 19:00 68 16 122/90 04/07/25 18:00 98.0 69 19 104/61 (75) 97 98.0 04/07/25 17:41 98.0 81 19 104/61 (75) 97 98.0 04/07/25 16:44 76 14 97 Room Air* 0 21 04/07/25 16:27 98.8 96 16 119/77 97 98.8 Current Medications Medications (Trade) Dose Ordered Sig/Josephine Route Start Time Stop Time Status Last Admin Acetaminophen/ Hydrocodone Bitart (Adel 10/325MG Tab) 1 tab ONCE ONCE PO 04/07/25 17:15 04/07/25 17:16 DC 04/07/25 17:22 Ketorolac Tromethamine (Toradol Injection) 15 mg ONCE ONCE IV 04/07/25 18:45 04/07/25 18:46 DC 04/07/25 18:51 Ondansetron HCl (Zofran) 4 mg ONCE ONCE IV 04/07/25 18:45 04/07/25 18:46 DC 04/07/25 18:51 Cefazolin Sodium/ Dextrose 50 ml @ 50 mls/hr ONCE ONCE IV 04/07/25 19:00 04/07/25 19:59 DC 04/07/25 20:00 Levetiracetam 100 ml @ 400 mls/hr ONCE ONCE IV 04/07/25 19:00 04/07/25 19:14 DC 04/07/25 19:00 Morphine Sulfate 4 mg ONCE ONCE IV 04/07/25 21:30 04/07/25 21:31 DC 04/07/25 21:39 PATIENT: JOHNY MEDELLIN ACCT: [id number] UNIT: [id number] : 1990 LOC: ER ROOM / BED: / AGE / SEX: 34 / F ADM STATUS: REG ER SERVICE 52 ORDERING PHYSICIAN: NANCY GEE MD PROCEDURE(s): RHAN - R HAND 3 VIEW XRAY REASON: Dog bite ORDER NUMBER(s): [id number], ACCESSION NUMBER(s): [id number] CLINICAL INDICATION: Dog bite, pain and swelling TECHNIQUE: XYXY R HAND 3 VIEW XRAY Comparison: None FINDINGS/IMPRESSION: : There is no evidence of acute fracture or dislocation. No radiopaque foreign body. Soft tissues are unremarkable. ATED BY: LUIS FREEMAN MD Time of 1ST Reevaluation: 18:20 Reevaluation 1ST: Unchanged Patient Education/Counseling: Need For Follow Up Family Education/Counseling: No Family Present SEPSIS Sepsis Screen Date sepsis recognized/suspect: Apr 07, 2025 Time Sepsis recognized/suspect: 1630 Recent Procedure: No On Antibiotic Therapy: No Respiratory Rate >20: No Heart Rate >90: No Temp<36 C (96.8 F) or >38.3 C: No SBP <90 or MAP <65 mmHG: No New Acute Mental Status Change: No Is the patient on CPAP, BIPAP,: No Physician Orders Cleanse Wound With Ns (04/07/25 18:52) Cleanse Wound With Mild Soap A (04/07/25 18:52) R Hand 3 View Xray (04/07/25 21:53) Vital Signs Date Time Temp Pulse Resp B/P (MAP) Pulse Ox O2 Delivery O2 Flow Rate FiO2 04/07/25 21:39 70 16 119/77 04/07/25 20:00 98.1 79 19 122/90 (101) 97 98.1 04/07/25 19:00 68 16 122/90 04/07/25 18:00 98.0 69 19 104/61 (75) 97 98.0 04/07/25 17:41 98.0 81 19 104/61 (75) 97 98.0 04/07/25 16:44 76 14 97 Room Air* 0 21 04/07/25 16:27 98.8 96 16 119/77 97 98.8 Medications Medications Dose Ordered Sig/Josephine Route Start Time Stop Time Status Last Admin Dose Admin Acetaminophen/ Hydrocodone Bitart 1 tab ONCE ONCE PO 04/07/25 17:15 04/07/25 17:16 DC 04/07/25 17:22 Cefazolin Sodium/ Dextrose 50 ml @ 50 mls/hr ONCE ONCE IV 04/07/25 19:00 04/07/25 19:59 DC 04/07/25 20:00 Ketorolac Tromethamine 15 mg ONCE ONCE IV 04/07/25 18:45 04/07/25 18:46 DC 04/07/25 18:51 Levetiracetam 100 ml @ 400 mls/hr ONCE ONCE IV 04/07/25 19:00 04/07/25 19:14 DC 04/07/25 19:00 Morphine Sulfate 4 mg ONCE ONCE IV 04/07/25 21:30 04/07/25 21:31 DC 04/07/25 21:39 Ondansetron HCl 4 mg ONCE ONCE IV 04/07/25 18:45 04/07/25 18:46 DC 04/07/25 18:51 Departure 1 Departure Time of Disposition: 23:20 Impression: Primary Impression: Dog bite Additional Impression: Seizure Disposition: HOME / SELF CARE / HOMELESS Condition: Stable Additional Instructions: ED DISCHARGE INSTRUCTIONS Instructions: Please read all instructions provided in this packet carefully. Although you have been discharged from the Emergency Department, this does not mean that you have a "clean bill of health". No definitive diagnosis for your symptoms has been made today. It is possible that you are in the process of developing a serious illness. This is why you must return to the ED without fail if any new or worsening symptoms (especially if your symptoms include chest pain, trouble breathing, abdominal pain, fever, headache, confusion, trouble seeing, or trouble walking) It is also very important that you see a primary care provider (PCP) within the next 3-5 days to follow up. If you are unable to get an appointment, return to the ED for re-evaluation. Animal Bites: Care Instructions After an animal bite, the biggest concern is infection. The chance of infection depends on the type of animal that bit you, where on your body you were bitten, and your general health. Many animal bites are not closed with stitches, because this can increase the chance of infection. Your bite may take as little as 7 days or as long as several months to heal, d epending on how bad it is. Taking good care of your wound at home will help it heal and reduce your chance of infection. The doctor has checked you carefully, but problems can develop later. If you notice any problems or new symptoms, get medical treatment right away. Follow-up care is a dias part of your treatment and safety. Be sure to make and go to all appointments, and call your doctor if you are having problems. It's also a good idea to know your test results and keep a list of the medicines you take. How can you care for yourself at home? If your doctor told you how to care for your wound, follow your doctor's instructions. If you did not get instructions, follow this general advice: After 24 to 48 hours, gently wash the wound with clean water 2 times a day. Do not scrub or soak the wound. Don't use hydrogen peroxide or alcohol, which can slow healing. You may cover the wound with a thin layer of petroleum jelly, such as Vaseline, and a nonstick bandage. Apply more petroleum jelly and replace the bandage as needed. After you shower, gently dry the wound with a clean towel. If your doctor has closed the wound, cover the bandage with a plastic bag before you take a shower. A small amount of skin redness and swelling around the wound edges and the stitches or raphael is normal. Your wound may itch or feel irritated. Do not scratch or rub the wound. Ask your doctor if you can take an [id number] pain medicine, such as acetaminophen (Tylenol), ibuprofen (Advil, Motrin), or naproxen (Aleve). Read and follow all instructions on the label. Do not take two or more pain medicines at the same time unless the doctor told you to. Many pain medicines have acetaminophen, which is Tylenol. Too much acetaminophen (Tylenol) can be harmful. If your bite puts you at risk for rabies, you will get a series of shots over the next few weeks to prevent rabies. Your doctor will tell you when to get the shots. It is very important that you get the full cycle of shots. Follow your doctor's instructions exactly. You may need a tetanus shot if you have not received one in the last 5 years. If your doctor prescribed antibiotics, take them as directed. Do not stop taking them just because you feel better. You need to take the full course of antibiotics. When should you call for help? Call your doctor now or seek immediate medical care if: The skin near the bite turns cold or pale or it changes color. You lose feeling in the area near the bite, or it feels numb or tingly. You have trouble moving a limb near the bite. You have symptoms of infection, such as: Increased pain, swelling, warmth, or redness near the wound. Red streaks leading from the wound. Pus draining from the wound. A fever. Blood soaks through the bandage. Oozing small amounts of blood is normal. Your pain is getting worse. Watch closely for changes in your health, and be sure to contact your doctor if you are not getting better as expected. Credits for Animal Bites: Care Instructions Current as of: December 28, 2023 Author: [facility] Staff Clinical Review Board All [facility] education is reviewed by a team that includes physicians, nurses, advanced practitioners, registered dieticians, and other healthcare professionals. SEIZURE EDUCATION Seizures are caused by abnormal patterns of electrical signals in the brain. They are different for each person. Seizures can affect movement, speech, vision, or awareness. Some people have only slight shaking of a hand and do not pass out. Other people may pass out and have shaking of the whole body. Some people appear to stare into space. They are awake, but they can't respond normally. Later, they may not remember what happened. You may need tests to identify the type and cause of the seizures. A seizure may occur only once, or you may have them more than one time. Taking medicines as directed and following up with your doctor may help keep you from having more seizures. The doctor has checked you carefully, but problems can develop later. If you notice any problems or new symptoms, get medical treatment right away. Follow-up care is a dias part of your treatment and safety. Be sure to make and go to all appointments, and call your doctor if you are having problems. It's also a good idea to know your test results and keep a list of the medicines you take. How can you care for yourself at home? Be safe with medicines. Take your medicines exactly as prescribed. Call your doctor if you think you are having a problem with your medicine. Do not do any activity that could be dangerous to you or others until your doctor says it is safe to do so. For example, do not drive a car, operate machinery, swim, or climb ladders. Be sure that anyone treating you for any health problem knows that you have had a seizure and what medicines you are taking for it. Identify and avoid things that may make you more likely to have a seizure. These may include lack of sleep, alcohol or drug use, stress, or not eating. If possible, take a shower instead of a bath. Having a seizure while in a bath can increase the risk of drowning. When should you call for help? Call 911 anytime you think you may need emergency care. For example, call if: You have another seizure. You have new symptoms, such as trouble walking, speaking, or thinking clearly. Call your doctor now or seek immediate medical care if: You are not acting normally. Watch closely for changes in your health, and be sure to contact your doctor if you have any problems. e-Prescriptions Ibuprofen (Ibuprofen) 600 Mg Tab 1 TAB PO TID PRN for 5 Days, #15 TAB Prov: NANCY GEE MD 04/07/25 Acetaminophen (Acetaminophen Er) 650 Mg Tab 650 MG PO TIDPRN PRN, #15 TAB Prov: NANCY GEE MD 04/07/25 Comments MDM: Patient observed in the ED with no further seizure activity. Puncture wounds from dog bite left to heal by secondary intention. Patient advised to follow up for re-evaluation within 3-5 days or sooner with any concerning symptoms. Extensive evaluation was performed in attempt to identify or rule out: (See differential diagnosis section) The following tests were ordered, and results were reviewed by me and discussed with patient: (See diagnostic results section) The following test were independently interpreted by me: N/A I reviewed and agreed with the following test results read by other providers: N/A I reviewed the following notes from the pt's past medical encounters: April 04, 2025 and April 07, 2025 encounters for generalized tonic-clonic seizure and recurrent seizure, respectively Additional information was gathered from interviewing the following independent historians: EMS personnel Discussion of management or test interpretation with external physician/other qualified health primary care coordinator: N/A Regarding hospitalization or escalation of hospital level of care: Risk and benefits of admission for further treatment of patient's condition was considered. Due to patient's current clinical condition, high risk of decline and poor outcome if discharged and need for further inpatient management and monitoring, patient will be admitted to the hospital. Parenteral controlled substances: IV morphine Critical Care Note Critical Care Time?: No Stability Stability form required: No Heart Score Heart Score: Heart Score Response (Comments) Value History N/A 0 EKG N/A 0 Age N/A 0 Risk Factors N/A 0 Troponin N/A 0 Total 0 I personally scribed for NANCY GEE MD ([email or web address]) on 04/07/25 at 19:09. Electronically submitted by Ernie Mathis ([email or web address]). I personally scribed for NANCY GEE MD ([email or web address]) on 04/07/25 at 19:10. Electronically submitted by Ernie Mathis ([email or web address]). NANCY GEE MD Apr 07, 2025 19:09
[2025-04-07] MEDS: ceFAZolin 2 GM/D5W50ml 50 ML IV ONE (20:00)
[2025-04-07] MEDS: MORPHINE SULFATE 4 MG/ML SYR/VIAL IV ONE (21:39)
--- NOTE | 2025-04-07 22:49 | DVH ---
CLINICAL INDICATION: Dog bite, pain and swelling TECHNIQUE: XYXY R HAND 3 VIEW XRAY Comparison: None FINDINGS/IMPRESSION: : There is no evidence of acute fracture or dislocation. No radiopaque foreign body. Soft tissues are unremarkable.
[2025-04-07] MEDS ORDERED: ACET650T12 PO (23:23)
[2025-04-07] MEDS ORDERED: IBUP-1454 PO (23:23)
[2025-04-08] MEDS: TETANUS-DIPTH-ACEL PERTUSSIS 0.5ML SYR Tdap IM ONE ×2 (00:37→00:39)
[2025-04-08 00:40] VITALS: BP 126/92; PULSE 79; RESP 19; TEMP 98.9; O2SAT 98
== END 2025-04-08 00:49 | disposition home or self-care (01) ==
LOC: ER 16:20 → EDBD 16:20 → EDUNIT# 16:20 → ER 04-08 00:49
DX: S60.221A Contusion of right hand, initial encounter (principal); S61.451A Open bite of right hand, initial encounter; F17.210 Nicotine dependence, cigarettes, uncomplicated; W54.0XXA Bitten by dog, initial encounter; Y93.89 Activity, other specified; Y92.89 Other specified places as the place of occurrence of the external cause; Y99.8 Other external cause status
CPT/HCPCS: 73130; 90471; 90715; 96365; 96367; 96375; 99285; J0690; J1885; J1953; J2270; J2405

== ENCOUNTER 2025-04-11 21:32 | Emergency (ER) | payer BC ==
[~2025-04-11] VITALS: Ht 162.6 cm; Wt 68.0 kg
[~2025-04-11 21:32] MED LIST changes: +ACET650T12 PO; +IBUP-1454 PO
[2025-04-11 21:50] VITALS: TEMP 97.9
--- NOTE | 2025-04-11 21:58 | ED.PDOC ---
History of Present Illness HPI Comments 34-year-old female who came to ER via EMS for seizures. Patient is seen here multiple times for seizures and alcoholism. Had another seizure episode earlier today. States she takes her medications as prescribed. Was given 5 mg of Versed by paramedics while en route to the ER REVIEW OF SYSTEMS: General: No fever, no chills, or fatigue HEENT: No sore throat, no earache, no congestion, no neck pain. Cardiac: No chest pain. No palpitations. Lungs: No shortness of breath, no cough. GI: No nausea, no vomiting, no diarrhea, no constipation, no abdominal pain : No dysuria, frequency, or urgency. No hematuria. Musculoskeletal: No joint pain , no joint swelling, no extremity edema. Skin: No rash, no itching. Neuro: No headache, (+) dizziness, no weakness (+) seizures EXAM: General: Awake, lethargic. No acute distress. Skin: Skin in warm, dry and intact. Appropriate color for ethnicity. HEENT: The head is normocephalic and atraumatic. Conjunctivae are clear without exudates or hemorrhage. Sclera is non-icteric. EOM are intact. No signs of nystagmus. Eyelids are normal in appearance without swelling or lesions. Oral mucosa is pink and moist Neck: The neck is supple with normal range of motion. No JVD. Cardiac: Heart rate and rhythm are normal. No murmurs, gallops, or rubs are auscultated. Respiratory: No signs of respiratory distress. Lung sounds are clear in all lobes bilaterally without rales, rhonchi, or wheezes. Abdominal: Abdomen is soft, non-tender without distention. Bowel sounds are present and normoactive in all four quadrants. Extremities: Upper and lower extremities are atraumatic in appearance without deformity or edema. Neurological: The patient is awake, alert and oriented to person, place, and time with normal speech. Speech is clear. There is no facial asymmetry. Moving all extremities spontaneously. Chief Complaint: Seizure Time Seen by MD: 21:58 Primary Care Provider: Rafael Vieyra Notes: Crm Solution Architect Notes Allergies: Coded Allergies: NO KNOWN ALLERGIES (Unverified , 06/19/16) Home Meds Active Scripts Ibuprofen (Ibuprofen) 600 Mg Tab, 1 TAB PO TID PRN for 5 Days, #15 TAB Prov:NANCY GEE MD 04/07/25 Acetaminophen (Acetaminophen Er) 650 Mg Tab, 650 MG PO TIDPRN PRN, #15 TAB Prov:NANCY GEE MD 04/07/25 Ondansetron Odt 4MG Tab (ZOFRAN PO) 4 Mg Tb, 4 MG PO BID for 5 Days, #10 TAB ODT TAB-DISSOLVE IN MOUTH, THEN SWALLOW Prov:ANNALISE LourdesKELSEY 01/26/25 Information Source: Patient, Emergency Med Personnel Mode of Arrival: EMS Severity: Moderate Past Medical History PAST MEDICAL HISTORY: Anxiety, Seizures Surgical History: Unknown MARINE CARGO SPECIALIST History: No Pertinent MARINE CARGO SPECIALIST History Family History Family History: Unknown Social History Smoker: Cigarettes, Less Than 1 Pack/Day Alcohol: Heavy Drugs: Denies Drug Use Lives In: Home Was a procedure done? Was a procedure done?: No Differential Dx Considerations may include: Differential diagnoses considered include but are not limited to epilepsy/seizure disorder, CDL DEDICATED TRUCK DRIVER infection, electrolyte disturbance, CVA, TBI, drug toxicity or overdose, hypoxia, hypertensive emergency, brain tumor/mass, syncope, movement disorder, other X-Ray, Labs, Meds, VS Vital Signs Date Time Temp Pulse Resp B/P (MAP) Pulse Ox O2 Delivery O2 Flow Rate FiO2 04/12/25 00:20 97 12 93/60 (71) 98 04/11/25 22:01 97 12 98 Nasal Cannula* 4 36 04/11/25 21:50 97.9 97 12 106/66 (79) 98 97.9 04/11/25 21:35 98.4 106 20 118/72 98 98.4 Lab Test 04/11/25 21:57 04/11/25 21:50 Range/Units White Blood Count 7.9 # 4.4-10.8 10^3/uL Red Blood Count 4.24 4.0-5.20 10^6/uL Hemoglobin 12.6 12.2-16.2 g/dL Hematocrit 37.8 # 36.0-46.0 % Mean Corpuscular Volume 89.2 80.0-100.0 fL Mean Corpuscular Hemoglobin 29.6 28.0-32.0 pg Mean Corpuscular Hemoglobin Concent 33.2 32.0-36.0 g/dL Red Cell Distribution Width 13.8 11.8-14.3 % Platelet Count 272 140-450 10^3/uL Mean Platelet Volume 7.1 6.9-10.8 fL Neutrophils (%) (Auto) 58.5 37.0-80.0 % Lymphocytes (%) (Auto) 30.4 10.0-50.0 % Monocytes (%) (Auto) 9.2 0.0-12.0 % Eosinophils (%) (Auto) 1.3 0.0-7.0 % Basophils (%) (Auto) 0.6 0.0-2.0 % Neutrophils # (Auto) 4.6 1.6-8.6 10 ^3/uL Lymphocytes # (Auto) 2.4 0.4-5.4 10 ^3/uL Monocytes # (Auto) 0.7 0-1.3 10 ^3/uL Eosinophils # (Auto) 0.1 0-0.8 10 ^3/uL Basophils # (Auto) 0.1 0-0.2 10 ^3/uL Nucleated Red Blood Cells 0.1 % Sodium Level 141 # 136-145 mmol/L Potassium Level 3.5 3.5-5.1 mmol/L Chloride Level 105 98-107 mmol/L Carbon Dioxide Level 23 20-31 mmol/L Anion Gap 13 5-15 Blood Urea Nitrogen 9 9-23 mg/dL Creatinine 0.67 0.550-1.02 mg/dL Glomerular Filtration Rate Calc 118 >90 mL/min BUN/Creatinine Ratio 13.4 10.0-20.0 Serum Glucose 86 74-106 mg/dL Calcium Level 9.1 8.7-10.4 mg/dL Total Bilirubin 0.6 0.2-1.0 mg/dL Aspartate Amino Transferase (AST) 19 13-40 U/L Alanine Aminotransferase (ALT) 17 7-40 U/L Alkaline Phosphatase 52 46-116 U/L Total Protein 7.6 5.7-8.2 g/dL Albumin 4.6 3.2-4.8 g/dL Levetiracetam Level Pending Plasma/Serum Blood Alcohol Pending Urine Color Colorless Yellow Urine Clarity Clear Clear Urine pH 5.5 5.0-9.0 Urine Specific [place] 1.006 1.001-1.035 Urine Protein Negative Negative Urine Ketones Negative Negative Urine Blood Negative Negative /uL Urine Nitrite Negative Negative Urine Bilirubin Negative Negative Urine Urobilinogen Normal Negative mg/dL Urine Leukocyte Esterase Negative Negative /uL Urine RBC <1 0 - 4 /hpf Urine Microscopic WBC 1 0-5 /HPF Urine Squamous Epithelial Cells Few <5 /hpf Urine Bacteria None seen None Seen /hpf Urine Glucose Normal Normal mg/dL Urine Opiates Screen Neg NEGATIVE Urine Fentanyl Screen Neg NEGATIVE Urine Barbiturates Screen Neg NEGATIVE Urine Phencyclidine Screen Neg NEGATIVE Urine Amphetamines Screen Neg NEGATIVE Urine Benzodiazepines Screen Pos NEGATIVE Urine Cocaine Screen Neg NEGATIVE Urine Cannabinoids Screen Neg NEGATIVE Current Medications Medications (Trade) Dose Ordered Sig/Josephine Route Start Time Stop Time Status Last Admin Sodium Chloride 1,000 ml @ 1,000 mls/hr Q1H ONCE IV 04/11/25 22:00 04/11/25 22:59 DC 04/11/25 22:18 Levetiracetam 100 ml @ 400 mls/hr ONCE ONCE IV 04/11/25 22:00 04/11/25 22:14 DC 04/11/25 22:18 Ondansetron HCl (Zofran) 4 mg ONCE ONCE IV 04/12/25 00:30 04/12/25 00:31 DC 04/11/25 23:17 Time of 1ST Reevaluation: 21:56 Reevaluation 1ST: Unchanged Patient Education/Counseling: Need For Follow Up Family Education/Counseling: No Family Present SEPSIS Sepsis Screen Date sepsis recognized/suspect: Apr 11, 2025 Time Sepsis recognized/suspect: 2134 Recent Procedure: No On Antibiotic Therapy: No Respiratory Rate >20: No Heart Rate >90: Yes Temp<36 C (96.8 F) or >38.3 C: No SBP <90 or MAP <65 mmHG: No New Acute Mental Status Change: Yes Is the patient on CPAP, BIPAP,: No Physician Orders Levetiracetam (Keppra) (04/11/25 21:48) Seizure Precautions (04/11/25 ) Titrate Oxygen (04/11/25 21:48) Oxygen (04/11/25 ) Continous Pulse Oximetry (04/11/25 21:48) Saline Lock (04/11/25 21:48) Financial Services Agent (04/11/25 ) Blood Alcohol (04/11/25 23:58) Vital Signs Date Time Temp Pulse Resp B/P (MAP) Pulse Ox O2 Delivery O2 Flow Rate FiO2 04/12/25 00:20 97 12 93/60 (71) 98 04/11/25 22:01 97 12 98 Nasal Cannula* 4 36 04/11/25 21:50 97.9 97 12 106/66 (79) 98 97.9 04/11/25 21:35 98.4 106 20 118/72 98 98.4 Laboratory Tests Test 04/11/25 21:57 White Blood Count 7.9 10^3/uL (4.4-10.8) # Medications Medications Dose Ordered Sig/Josephine Route Start Time Stop Time Status Last Admin Dose Admin Levetiracetam 100 ml @ 400 mls/hr ONCE ONCE IV 04/11/25 22:00 04/11/25 22:14 DC 04/11/25 22:18 Ondansetron HCl 4 mg ONCE ONCE IV 04/12/25 00:30 04/12/25 00:31 DC 04/11/25 23:17 Sodium Chloride 1,000 ml @ 1,000 mls/hr Q1H ONCE IV 04/11/25 22:00 04/11/25 22:59 DC 04/11/25 22:18 Departure 1 Departure Time of Disposition: 00:22 Impression: Primary Impression: Seizure disorder Additional Impression: Left against medical advice Disposition: 07 LEFT AGAINST MEDICAL ADVICE Condition: Other Comments 34-year-old female with seizure disorder and multiple seizures today. Patient was awake, alert and oriented x4 prior to discharge. She is requesting to leave the hospital. Discussed with the patient risk of recurrent seizure, she did not complete dose of Keppra here. Recommended further observation. Despite our efforts, patient has decided to leave against medical advice. The patient has a normal mental status and full decisional capacity. Patient has been informed of the benefits of staying such as further diagnosis and treatment of possible serious etiology of the symptoms, and the risks of leaving such as , chronic pain, permanent disability or other serious adverse events which might be attributed to leaving. The patient displays clear understanding of these benefits and risks and chooses to leave. The patient is been informed also that they may return here at any time if they change their mind or need to further concerns or questions has been referred to their local medical physician for fol low up NIKOLAI. Critical Care Note Critical Care Time?: No Stability Stability form required: No Heart Score Heart Score: Heart Score Response (Comments) Value History N/A 0 EKG N/A 0 Age N/A 0 Risk Factors N/A 0 Troponin N/A 0 Total 0 I personally scribed for NANCY GEE MD ([email or web address]) on 04/11/25 at 21:58. Electronically submitted by Paulo Eden ([email or web address]). I personally scribed for NANCY GEE MD ([email or web address]) on 04/11/25 at 23:59. Electronically submitted by Paulo Eden ([email or web address]). NANCY GEE MD Apr 11, 2025 21:58
[2025-04-11 22:01] VITALS: PULSE 97; RESP 12; O2SAT 98
[2025-04-11 22:15] LABS: Hematocrit 37.8 % (36.0-46.0); Hemoglobin 12.6 g/dL (12.2-16.2); Mean Corpuscular Hemoglobin 29.6 pg (28.0-32.0); Mean Corpuscular Volume 89.2 fL (80.0-100.0); Nucleated Red Blood Cells % 0.1 %
[2025-04-11] MEDS: levETIRAcetam 1000 mg/100ml 100 ML IV ONE (22:18)
[2025-04-11] MEDS: SODIUM CHLORIDE 0.9% 1,000 ML IV ONE (22:18)
[2025-04-11 22:19] LABS: Urine Protein, UAD Negative (Negative)
[2025-04-11 22:33] LABS: Alanine Aminotransferase 17 U/L (7-40); Albumin 4.6 g/dL (3.2-4.8); Alkaline Phosphatase 52 U/L (46-116); Anion Gap 13 (5-15); BUN/Creatinine Ratio 13.4 (10.0-20.0); Bilirubin, Total 0.6 mg/dL (0.2-1.0); Blood Urea Nitrogen 9 mg/dL (9-23); Calcium 9.1 mg/dL (8.7-10.4); Carbon Dioxide 23 mmol/L (20-31); Chloride 105 mmol/L (98-107); Glucose 86 mg/dL (74-106); Sodium 141 mmol/L (136-145); Total Protein 7.6 g/dL (5.7-8.2)
[2025-04-11 22:39] LABS: Amphetamine Screen, Urine Neg (NEGATIVE); Barbiturate Scree,Urine Neg (NEGATIVE); Benzodiazephine Screen, Urine Pos (NEGATIVE); Cannabinoid Screen, Urine Neg (NEGATIVE); Cocaine Screen, Urine Neg (NEGATIVE); Opiate Scree,Urine Neg (NEGATIVE); Phencyclidine Screen, Urine Neg (NEGATIVE)
[2025-04-11 22:39] LABS: Potassium 3.5 mmol/L (3.5-5.1)
[2025-04-11] MEDS: ONDANSETRON HCL 4 MG/2 ML VIAL IV ONE (23:17)
[2025-04-12 00:20] VITALS: BP 93/60; PULSE 97; RESP 12; O2SAT 98
[2025-04-12] MEDS: ONDANSETRON HCL 4 MG/2 ML VIAL ONE (00:23)
== END 2025-04-12 00:59 | disposition left against medical advice (07) ==
LOC: EDUNIT# 21:32 → EDBD 21:32 → ER 21:32
DX: G40.909 Epilepsy, unspecified, not intractable, without status epilepticus (principal); F17.210 Nicotine dependence, cigarettes, uncomplicated; Z79.899 Other long term (current) drug therapy
CPT/HCPCS: 36415; 80053; 80307; 80320; 81001; 82542; 85025; 96365; 96375; 99284; J1953; J2405

== ENCOUNTER 2025-04-14 02:26 | Emergency (ER) | payer BC ==
[~2025-04-14] VITALS: Ht 165.1 cm; Wt 50.0 kg
[2025-04-14 03:15] VITALS: BP 87/54; RESP 19; TEMP 98.2; O2SAT 95
[2025-04-14] MEDS: levETIRAcetam 1000 mg/100ml 100 ML IV ONE (03:15)
--- NOTE | 2025-04-14 03:43 | ED.PDOC ---
HPI (NEURO) HPI Comments HPI: Poor Historian. Recurrent seizure, witnessed seizure, nausea and vomiting, possible head injury, suicidal ideation. Patient states compliance with her Keppra medication. She took her last dose at 8:00 p.m. prior to arrival. Patient comes with the hospitalist frequently for the same presentation. History of alcohol abuse. Patient states she was seen recently by her neurologist Dr. Talley and she is awaiting to obtain an EEG. Patient received 10 mg of Versed in route by EMS. Past Medical History: Seizures Past Surgical History: Denies REVIEW OF SYSTEMS: CONSTITUTIONAL: Denies acute: fever, diaphoresis, chills, HEAD: Denies acute: headache, photophobia Eyes: Denies acute: Double vision, vision loss, eye pain, eye discharge. EARS: Denies acute: tinnitus, hearing loss, ear discharge, ear pain, THROAT: Denies acute: sore throat, swelling, difficulty swallowing , pain with swallowing, change in voice. NECK: Denies acute: neck pain, neck swelling, stiff neck. HEART: Denies acute : chest pain, palpitations, LUNGS: Denies acute: SOB, wheezing, cough, hemoptysis ABDOMEN: Denies acute: abdominal pain, diarrhea, melena , hematemesis, hematochezia SKIN: Denies acute: rash, redness, lesions, itchiness. EXTREMITIES: Denies acute: calf pain, numbness, tingling, weakness, denies pain in extremity. Denies acute: Low back pain. Neuro: Denies acute: focal neurological deficit, motor or sensory focal neurological deficit, change in mental status, loss of bowel or bladder function, cauda equina like symptoms. : Denies acute: dysuria, hematuria, flank pain, increase in urinary frequency. PSYCH: Denies acute: hallucination, homicidal ideation. FEMALE: Denies acute: abnormal vaginal bleeding, foul odor, unusual discharge. PHYSICAL EXAM: General: ----mild to moderate----acute distress, awake and alert. Head: normocephalic, atraumatic. No raccoon's eyes, no lynne sign. Neck: supple, trachea is midline, no swelling. Throat: Normal phonation. No oral trauma Eyes:, no erythema, no purulent discharge, no proptosis, no icterus. Heart: regular rate, regular rhythm, no significant murmur appreciated. Lungs: no apparent respiratory distress, Able to speak in full sentences. No wheezing, no rhonchi, no crackles. No stridors Clear to auscultation bilaterally. Abdomen: non tender to palpation, non distended, soft, no guarding, no rebound, + bowel sounds. Neuro: Awake, Alert, oriented to name, self, situation, follows commands. Appears under the influence of alcohol GCS=15. Speech is normal. Skin: no petechia, no purpura, no cyanosis, non-pale, not jaundice. Lower extremities: --no - Pitting edema no deformity, no focal swelling, no calf TTP. Makes eye contact. moves all four extremities. Right medial thigh old bruising contusion from a dog bite that she has been treated for already. Face: no apparent facial droop. No nuchal rigidity, Kernig's sign, Brudzinski's sign, no meningeal signs. ED COURSE: DISCLAIMER: This medical document was created using an electronic medical record system with voice recognition software and computerized dictation system. Although this document has been carefully reviewed, there might still be some phonetic and typographical errors. Occasional wrong-word or "sound-alike" substitutions may have occurred due to the inherent limitations of voice recognition software. These areas are purely typographical due to imperfections of the software programs and do not reflect any compromise in the patient's medical care. Please read the chart carefully and recognize, using context, where these substitutions have occurred. Chief Complaint: Seizure Time Seen by MD: 03:30 Primary Care Provider: Rafael Vieyra Notes: Allergies Information Source: Patient, Emergency Med Personnel Mode of Arrival: EMS Past Medical History PAST MEDICAL HISTORY: Anxiety, Seizures Surgical History: Unknown SENIOR LEAD DEVELOPER History: No Pertinent SENIOR LEAD DEVELOPER History Family History Family History: Unknown Social History Smoker: Cigarettes, Less Than 1 Pack/Day Alcohol: Heavy Drugs: Denies Drug Use Lives In: Home Was a procedure done? Was a procedure done?: No Differential Diagnosis (SZ) Seizure: Other (SEIZUREDDX include not limited to CVA, cerebellar ischemia/infarct, carotid stenosis, vertebral/carotid artery dissection,, verteb robasillary insufficiency, Intracranial mass/infection/bleed, encephalopathy, elctrolyte abnormality, thyroid disease, multiple sclerosis, hypoglycemia, drug toxicity, cardiac arrhythmia, sub-theraputic anti-convulsion medications, known seizure disorder, pseudo-seizure.) X-Ray, Labs, Meds, VS Vital Signs Date Time Temp Pulse Resp B/P (MAP) Pulse Ox O2 Delivery O2 Flow Rate FiO2 04/14/25 03:53 67 04/14/25 03:15 98.2 76 19 87/54 (65) 95 98.2 04/14/25 02:26 98.2 83 18 127/77 99 98.2 Lab Test 04/14/25 03:19 04/14/25 03:14 Range/Units White Blood Count 5.2 # 4.4-10.8 10^3/uL Red Blood Count 4.17 4.0-5.20 10^6/uL Hemoglobin 12.5 12.2-16.2 g/dL Hematocrit 37.1 36.0-46.0 % Mean Corpuscular Volume 89.0 80.0-100.0 fL Mean Corpuscular Hemoglobin 29.9 28.0-32.0 pg Mean Corpuscular Hemoglobin Concent 33.6 32.0-36.0 g/dL Red Cell Distribution Width 14.0 11.8-14.3 % Platelet Count 242 140-450 10^3/uL Mean Platelet Volume 7.2 6.9-10.8 fL Neutrophils (%) (Auto) 48.6 37.0-80.0 % Lymphocytes (%) (Auto) 40.4 10.0-50.0 % Monocytes (%) (Auto) 7.0 0.0-12.0 % Eosinophils (%) (Auto) 2.9 0.0-7.0 % Basophils (%) (Auto) 1.1 0.0-2.0 % Neutrophils # (Auto) 2.5 1.6-8.6 10 ^3/uL Lymphocytes # (Auto) 2.1 0.4-5.4 10 ^3/uL Monocytes # (Auto) 0.4 0-1.3 10 ^3/uL Eosinophils # (Auto) 0.2 0-0.8 10 ^3/uL Basophils # (Auto) 0.1 0-0.2 10 ^3/uL Nucleated Red Blood Cells 0.1 % Sodium Level 141 136-145 mmol/L Potassium Level 3.6 3.5-5.1 mmol/L Chloride Level 108 H 98-107 mmol/L Carbon Dioxide Level 22 20-31 mmol/L Anion Gap 11 5-15 Blood Urea Nitrogen 6 L 9-23 mg/dL Creatinine 0.61 0.550-1.02 mg/dL Glomerular Filtration Rate Calc 120 >90 mL/min BUN/Creatinine Ratio 9.8 L 10.0-20.0 Serum Glucose 83 74-106 mg/dL Calcium Level 9.0 8.7-10.4 mg/dL Magnesium Level 2.1 1.6-2.6 mg/dL Total Bilirubin 0.8 0.2-1.0 mg/dL Aspartate Amino Transferase (AST) 12 L 13-40 U/L Alanine Aminotransferase (ALT) 13 7-40 U/L Alkaline Phosphatase 50 46-116 U/L Troponin I High Sensitivity < 3 L </=34 ng/L Total Protein 7.2 5.7-8.2 g/dL Albumin 4.3 3.2-4.8 g/dL Levetiracetam Level Pending Plasma/Serum Blood Alcohol 218.0 H <10 mg/dL Lactic Acid Level 1.5 0.4-2.0 mmol/L Current Medications Medications (Trade) Dose Ordered Sig/Josephine Route Start Time Stop Time Status Last Admin Levetiracetam 100 ml @ 400 mls/hr ONCE ONCE IV 04/14/25 03:00 04/14/25 03:14 DC 04/14/25 03:15 [place] [address] Ph: [phone] DIAGNOSTIC IMAGING Diagnostic Imaging Report : [id number] Signed PATIENT: JOHNY MEDELLIN ACCT: [id number] UNIT: [id number] : 1990 LOC: ER ROOM / BED: / AGE / SEX: 34 / F ADM STATUS: REG ER SERVICE 1 ORDERING PHYSICIAN: ARTEMIO WALLS DO PROCEDURE(s): HWOCT - HEAD WITHOUT CONTRAST REASON: SEIZURE ORDER NUMBER(s): [id number], ACCESSION NUMBER(s): [id number] MEDICAL RECORDS NUMBER: [id number] PROCEDURE: CT HEAD WITHOUT CONTRAST Date: 04/14/2025 03:25 AM HISTORY: SEIZURE TECHNIQUE: Contiguous axial images were acquired from the skull base through to the vertex. CONTRAST: None COMPARISON: None RADIATION DOSE INFORMATION: Automated exposure control dose reduction techniques were used. FINDINGS: Ventricles: The ventricular system is normal in size and position. Masses: No mass effect is seen. Hemorrhage: No blood products are identified. Skull: The calvarium is intact. Sinuses: Mucosal thickening and small amounts of fluid are seen in the maxillary sinuses and ethmoid air cells bilaterally Mastoids: No fluid is seen in the mastoid air cells. IMPRESSION: 1. No acute intracranial abnormality. 2. Sinusitis. ATED BY: TERRY BOOGIE MD DICTATED DATE/TIME: 04/14/25356 SIGNED BY: TERRY BOOGIE MD SIGNED DATE/TIME: 04/14/25356 CC: [place] [id number] Ph: [phone] DIAGNOSTIC IMAGING Diagnostic Imaging Report : [id number] Signed PATIENT: JOHNY MEDELLIN ACCT: [id number] UNIT: [id number] : 1990 LOC: ER ROOM / BED: / AGE / SEX: 34 / F ADM STATUS: REG ER SERVICE 9 ORDERING PHYSICIAN: ARTEMIO WALLS DO PROCEDURE(s): CXRP - CHEST PORTABLE REASON: seizure ORDER NUMBER(s): [id number], ACCESSION NUMBER(s): [id number] CHEST RADIOGRAPH Indication: seizure Technique: 1 view Comparison: XY CHEST PORTABLE on DOS: 04/06/25, XY CHEST XRAY 1 VIEW on DOS: 02/06/25, XY CHEST PORTABLE on DOS: 01/22/25 FINDINGS: Lines and Tubes: None. Lungs/Pleura: No focal consolidation, pleural effusion or pneumothorax. Cardiomediastinum: Normal heart size. Surgical clip overlies the aortic arch. Other: No acute osseous abnormality. IMPRESSION: 1. No acute cardiopulmonary abnormality. ATED BY: TERRY BOOGIE MD DICTATED DATE/TIME: 04/14/25 033 SIGNED BY: TERRY BOOGIE MD SIGNED DATE/TIME: 04/14/25 0339 CC: Time of 1ST Reevaluation: 03:30 Reevaluation 1ST: Unchanged Patient Education/Counseling: Diagnosis, Treatment Family Education/Counseling: No Family Present Comments MDM: patient presented with the above HPI.---seizure/intoxication/possible head injury---workup was initiated. patient was found with the above mentioned diagnosis. the following medications were ordered: please refer to order lists of meds and tests obtained by myself Dr. Walls. Patient ED course and VS have been stabilized. Patient has been reassessed in the ED and remained in a stable condition. Pertinent incidental findings were discussed with the patient and/or family. Patient has been observed in the ED adequate length of time to insure improvement/stability. Escalation of care considered: Consideration of escalation to observation or admission Earliest patient's voiced possible suicidal ideation. A psych consult and social service consult was placed. Patient was no longer postictal. Patient was ADMITTED to the medicine team for further evaluation and treatment of their presentation. However patient decided to leave against medical advice after she received her Keppra All the reports of any imaging studies that were ordered by myself were reviewed by myself. Departure 1 Departure Time of Disposition: 03:42 Impression: Primary Impression: Alcohol abuse Additional Impressions: Recurrent seizures Suicidal ideation Left against medical advice Disposition: 07 LEFT AGAINST MEDICAL ADVICE Admit to: Tele Condition: Other Additional Instructions: Patient left against medical advice She was instructed to seek medical attention NIKOLAI and follow up with Neurology NIKOLAI. Discharged With: Self, Spouse Critical Care Note Critical Care Time?: Yes (45 min-critical care time only) I personally scribed for ARTEMIO WALLS DO ([email or web address]) on 04/14/25 at 04:35. Electronically submitted by Ernie Mathis ([email or web address]). ARTEMIO WALLS DO Apr 14, 2025 03:43
[2025-04-14] MEDS: ONDANSETRON HCL 4 MG/2 ML VIAL IV ONE (03:45)
[2025-04-14] MEDS: SODIUM CHLORIDE 0.9% 1,000 ML IV ONE (03:45)
[2025-04-14 03:53] VITALS: PULSE 67
--- NOTE | 2025-04-14 04:00 | DVH ---
MEDICAL RECORDS NUMBER: [id number] PROCEDURE: CT HEAD WITHOUT CONTRAST Date: 04/14/2025 03:25 AM HISTORY: SEIZURE TECHNIQUE: Contiguous axial images were acquired from the skull base through to the vertex. CONTRAST: None COMPARISON: None RADIATION DOSE INFORMATION: Automated exposure control dose reduction techniques were used. FINDINGS: Ventricles: The ventricular system is normal in size and position. Masses: No mass effect is seen. Hemorrhage: No blood products are identified. Skull: The calvarium is intact. Sinuses: Mucosal thickening and small amounts of fluid are seen in the maxillary sinuses and ethmoid air cells bilaterally Mastoids: No fluid is seen in the mastoid air cells. IMPRESSION: 1. No acute intracranial abnormality. 2. Sinusitis.
[2025-04-14 04:10] LABS: Hematocrit 37.1 % (36.0-46.0); Hemoglobin 12.5 g/dL (12.2-16.2); Mean Corpuscular Hemoglobin 29.9 pg (28.0-32.0); Mean Corpuscular Volume 89.0 fL (80.0-100.0); Nucleated Red Blood Cells % 0.1 %
[2025-04-14 04:13] LABS: Alanine Aminotransferase 13 U/L (7-40); Albumin 4.3 g/dL (3.2-4.8); Alkaline Phosphatase 50 U/L (46-116); Anion Gap 11 (5-15); BUN/Creatinine Ratio 9.8 (10.0-20.0); Bilirubin, Total 0.8 mg/dL (0.2-1.0); Calcium 9.0 mg/dL (8.7-10.4); Carbon Dioxide 22 mmol/L (20-31); Glucose 83 mg/dL (74-106); Magnesium 2.1 mg/dL (1.6-2.6); Potassium 3.6 mmol/L (3.5-5.1); Sodium 141 mmol/L (136-145); Total Protein 7.2 g/dL (5.7-8.2)
[2025-04-14 04:18] LABS: Blood Urea Nitrogen 6 mg/dL (9-23); Chloride 108 mmol/L (98-107)
--- NOTE | 2025-04-14 06:27 | ECG ---
[facility] Test Date: 2025-04-14 Test Time: 03:53:43 Pat Name: JOHNY MEDELLIN Department: ED Room: Gender: F General Clerk: : 1990 Requested By: ARTEMIO WALLS Order Number: [id number] Reading MD: Grey Peraza Measurements Intervals [place] Rate: 67 P: 59 ME: 140 QRS: 41 QRSD: 90 T: 44 QT: 404 QTc: 427 Interpretive Statements Sinus rhythm Low voltage, precordial leads Electronically Signed On 04-16-2025 17:55:04 PST by Grey Peraza Please click the below link to view image of tracing.
[2025-04-15] MEDS ORDERED: LORazepam 2MG/ML-1ML VIAL ONE (22:44)
[2025-04-15] MEDS ORDERED: MIDAZOLAM HCL 5 MG/ML-1ML VIAL ONE (23:20)
== END 2025-04-14 05:20 | disposition left against medical advice (07) ==
LOC: EDBD 02:26 → EDUNIT# 02:26 → ER 02:26
DX: G40.909 Epilepsy, unspecified, not intractable, without status epilepticus (principal); R45.851 Suicidal ideations; F10.10 Alcohol abuse, uncomplicated; F17.210 Nicotine dependence, cigarettes, uncomplicated; Y90.9 Presence of alcohol in blood, level not specified; Z79.899 Other long term (current) drug therapy
CPT/HCPCS: 36415; 70450; 71045; 80053; 80320; 82542; 83605; 83735; 84484; 85025; 93005; 96374; 99291; J1953

== ENCOUNTER 2025-04-15 22:24 | Emergency (ER) | payer BC ==
[~2025-04-15] VITALS: Ht 162.6 cm; Wt 55.3 kg
--- NOTE | 2025-04-15 22:48 | ECG ---
[facility] Test Date: 2025-04-15 Test Time: 22:35:39 Pat Name: JOHNY MEDELLIN Department: ED Room: Gender: F Pressure Sealer And Tester: : 1990 Requested By: ESAU WEBB* Order Number: [id number] Reading MD: Grey Peraza Measurements Intervals [place] Rate: 91 P: 47 GA: 128 QRS: 47 QRSD: 96 T: 29 QT: 367 QTc: 452 Interpretive Statements Sinus rhythm Low voltage, precordial leads Borderline T abnormalities, anterior leads Electronically Signed On 04-16-2025 17:59:52 PST by Grey Peraza Please click the below link to view image of tracing.
[2025-04-15] MEDS: LORazepam 2MG/ML-1ML VIAL IV ONE (22:49)
[2025-04-15] MEDS: levETIRAcetam 1000 mg/100ml 100 ML IV ONE (22:50)
--- NOTE | 2025-04-15 22:51 | ED.PDOC ---
History of Present Illness HPI Comments 34-year-old female, with a history of seizures and alcohol abuse, is brought in by ambulance from private residence for chief complaint of multiple seizure episodes. Per EMS personnel report, patient's spouse called after reporting on patient having sudden onset of multiple seizure episodes in tandem, this evening, after drinking 3 alcoholic beverages, earlier. No reported signs of incontinence or trauma on scene. EN route, patient had 3 additional tonic- clonic seizures. Vitals were reported to have been stable within normal limits. Further history is limited, due to patient's current mental condition postictal and absence of family/chief chemist historians. Chief Complaint: Seizure Time Seen by MD: 22:40 Primary Care Provider: Rafael Vieyra Notes: Nurses Notes, Ux Design Lead Notes, Medications, Allergies Allergies: Coded Allergies: NO KNOWN ALLERGIES (Unverified , 06/19/16) Home Meds Active Scripts Ibuprofen (Ibuprofen) 600 Mg Tab, 1 TAB PO TID PRN for 5 Days, #15 TAB Prov:NANCY GEE MD 04/07/25 Acetaminophen (Acetaminophen Er) 650 Mg Tab, 650 MG PO TIDPRN PRN, #15 TAB Prov:NANCY GEE MD 04/07/25 Ondansetron Odt 4MG Tab (ZOFRAN PO) 4 Mg Tb, 4 MG PO BID for 5 Days, #10 TAB ODT TAB-DISSOLVE IN MOUTH, THEN SWALLOW Prov:KELSEY BERNARD 01/26/25 Information Source: Patient, Emergency Med Personnel, Past Medical Record Mode of Arrival: EMS Severity: Moderate Timing: Minutes Duration: Minutes Prehospital treatment: 12 Lead EKG, Accucheck, Consumer Insights Specialist Past Medical History PAST MEDICAL HISTORY: Anxiety, Seizures Surgical History: Unknown MANAGER SOURCING History: No Pertinent MANAGER SOURCING History Family History Family History: Unknown Social History Smoker: Cigarettes, Less Than 1 Pack/Day Alcohol: Heavy Drugs: Denies Drug Use Lives In: Home All Other Systems: Reviewed and Negative (Unobtainable due to patient's mental status post seizure) Physical Exam General Appearance: No Apparent Distress, Normal HEENT: Normal ENT Inspection, Pharynx Normal, TMs Normal Neck: Full Range of Motion, Non-Tender, Normal, Normal Inspection Respiratory: Chest Non-Tender, Lungs Clear, No Accessory Muscle Use, No Respiratory Distress, Normal Breath Sounds Cardiovascular: No Edema, No JVD, No Murmur, No Gallop, Normal Peripheral Pulses, Regular Rate/Rhythm Breast Exam: Deferred Gastrointestinal: No Organomegaly, Non Tender, No Pulsatile Mass, Normal Bowel Sounds, Soft Genitalia: Deferred Pelvic: Deferred Rectal: Deferred Extremities: No calf tenderness, Normal capillary refill, Normal inspection, Normal range of motion, Non-tender, No pedal edema Musculoskeletal : Apperance: Normal Neurologic: Alert, flotation operator II-XII nml as Tested, No Motor Deficits, Normal Affect, Normal Mood, No Sensory Deficits Cerebellar Function: Normal Reflexes: Normal Skin: Dry, Normal Color, Warm Lymphatic: No Adenopathy Was a procedure done? Was a procedure done?: No Differential Dx Considerations may include: Differential diagnoses considered include but are not limited to epilepsy/seizure disorder, STOCK CLERK infection, electrolyte disturbance, CVA, TBI, drug toxicity or overdose, hypoxia, hypertensive emergency, brain tumor/mass, syncope, movement disorder, other X-Ray, Labs, Meds, VS Vital Signs Date Time Temp Pulse Resp B/P (MAP) Pulse Ox O2 Delivery O2 Flow Rate FiO2 04/15/25 23:11 98.4 92 19 90/59 (69) 97 98.4 04/15/25 23:11 92 19 97 Nasal Cannula* 3 32 04/15/25 22:35 91 04/15/25 22:30 98.0 87 16 108/66 94 98.0 Lab Test 04/15/25 23:44 Range/Units White Blood Count 6.8 # 4.4-10.8 10^3/uL Red Blood Count 4.57 4.0-5.20 10^6/uL Hemoglobin 13.6 12.2-16.2 g/dL Hematocrit 40.9 # 36.0-46.0 % Mean Corpuscular Volume 89.6 80.0-100.0 fL Mean Corpuscular Hemoglobin 29.8 28.0-32.0 pg Mean Corpuscular Hemoglobin Concent 33.2 32.0-36.0 g/dL Red Cell Distribution Width 14.1 11.8-14.3 % Platelet Count 283 140-450 10^3/uL Mean Platelet Volume 7.1 6.9-10.8 fL Neutrophils (%) (Auto) 48.9 37.0-80.0 % Lymphocytes (%) (Auto) 42.0 10.0-50.0 % Monocytes (%) (Auto) 6.5 0.0-12.0 % Eosinophils (%) (Auto) 1.6 0.0-7.0 % Basophils (%) (Auto) 1.0 0.0-2.0 % Neutrophils # (Auto) 3.3 1.6-8.6 10 ^3/uL Lymphocytes # (Auto) 2.9 0.4-5.4 10 ^3/uL Monocytes # (Auto) 0.4 0-1.3 10 ^3/uL Eosinophils # (Auto) 0.1 0-0.8 10 ^3/uL Basophils # (Auto) 0.1 0-0.2 10 ^3/uL Nucleated Red Blood Cells 0.1 % Sodium Level 144 136-145 mmol/L Potassium Level 3.7 3.5-5.1 mmol/L Chloride Level 109 H 98-107 mmol/L Carbon Dioxide Level 21 20-31 mmol/L Anion Gap 14 5-15 Blood Urea Nitrogen < 5 L 9-23 mg/dL Creatinine 0.58 0.550-1.02 mg/dL Glomerular Filtration Rate Calc 122 >90 mL/min BUN/Creatinine Ratio 8.6 L 10.0-20.0 Serum Glucose 79 74-106 mg/dL Calcium Level 8.9 8.7-10.4 mg/dL Total Bilirubin 0.5 0.2-1.0 mg/dL Aspartate Amino Transferase (AST) 16 13-40 U/L Alanine Aminotransferase (ALT) 15 7-40 U/L Alkaline Phosphatase 53 46-116 U/L Total Protein 7.8 5.7-8.2 g/dL Albumin 4.7 3.2-4.8 g/dL Current Medications Medications (Trade) Dose Ordered Sig/Josephine Route Start Time Stop Time Status Last Admin Levetiracetam 100 ml @ 400 mls/hr ONCE ONCE IV 04/15/25 22:30 04/15/25 22:44 DC 04/15/25 22:50 Lorazepam (Ativan Inj) 2 mg ONCE ONCE IV 04/15/25 23:00 04/15/25 23:01 DC 04/15/25 22:49 Ondansetron HCl (Zofran) 4 mg ONCE ONCE IV 04/15/25 23:30 04/15/25 23:31 DC 04/15/25 23:42 Sodium Chloride 1,000 ml @ 1,000 mls/hr Q1H ONCE IV 04/15/25 23:30 04/16/25 00:29 DC 04/15/25 23:42 X-Ray, Labs, Meds, VS Comment Patient leaving AMA, explained the risks of . Time of 1ST Reevaluation: 01:00 Reevaluation 1ST: Unchanged Patient Education/Counseling: Treatment Family Education/Counseling: No Family Present Additional Information Bruise visits reviewed: April 04, 2025 encounter for generalized tonic-clonic seizure. April 07, 2025 encounters for recurrent seizure and dog bite. April 11, 2025 encounter for seizure/postictal. April 14, 2025 encounter for SI. Additional historians: EMS personnel SEPSIS Sepsis Screen Date sepsis recognized/suspect: Apr 15, 2025 Time Sepsis recognized/suspect: 2226 Recent Procedure: No On Antibiotic Therapy: No Respiratory Rate >20: No Heart Rate >90: No Temp<36 C (96.8 F) or >38.3 C: No SBP <90 or MAP <65 mmHG: No New Acute Mental Status Change: No Is the patient on CPAP, BIPAP,: No Physician Orders Drug Screen (04/15/25 23:25) Vital Signs Date Time Temp Pulse Resp B/P (MAP) Pulse Ox O2 Delivery O2 Flow Rate FiO2 04/15/25 23:11 98.4 92 19 90/59 (69) 97 98.4 04/15/25 23:11 92 19 97 Nasal Cannula* 3 32 04/15/25 22:35 91 04/15/25 22:30 98.0 87 16 108/66 94 98.0 Laboratory Tests Test 04/15/25 23:44 White Blood Count 6.8 10^3/uL (4.4-10.8) # Medications Medications Dose Ordered Sig/Josephine Route Start Time Stop Time Status Last Admin Dose Admin Levetiracetam 100 ml @ 400 mls/hr ONCE ONCE IV 04/15/25 22:30 04/15/25 22:44 DC 04/15/25 22:50 Lorazepam 2 mg ONCE ONCE IV 04/15/25 23:00 04/15/25 23:01 DC 04/15/25 22:49 Ondansetron HCl 4 mg ONCE ONCE IV 04/15/25 23:30 04/15/25 23:31 DC 04/15/25 23:42 Sodium Chloride 1,000 ml @ 1,000 mls/hr Q1H ONCE IV 04/15/25 23:30 04/16/25 00:29 DC 04/15/25 23:42 Departure 1 Departure Time of Disposition: 01:00 Impression: Primary Impression: Alcohol abuse Additional Impression: Seizure Disposition: LEFT AGAINST MEDICAL ADVICE Condition: Stable Discharged With: Self Critical Care Note Critical Care Time?: No Stability Stability form required: No Heart Score Heart Score: Heart Score Response (Comments) Value History N/A 0 EKG N/A 0 Age N/A 0 Risk Factors N/A 0 Troponin N/A 0 Total 0 I personally scribed for ESAU AVENDAÑO ([email or web address]) on 04/15/25 at 22:51. Electronically submitted by Leno Gallegos ([email or web address]). ESAU AVENDAÑO Apr 15, 2025 22:51
[2025-04-15 23:11] VITALS: BP 90/59; PULSE 92; RESP 19; TEMP 98.4; O2SAT 97
[2025-04-15] MEDS: SODIUM CHLORIDE 0.9% 1,000 ML IV ONE (23:42)
[2025-04-15] MEDS: ONDANSETRON HCL 4 MG/2 ML VIAL IV ONE (23:42)
[2025-04-16 00:15] LABS: Hematocrit 40.9 % (36.0-46.0); Hemoglobin 13.6 g/dL (12.2-16.2); Mean Corpuscular Hemoglobin 29.8 pg (28.0-32.0); Mean Corpuscular Volume 89.6 fL (80.0-100.0); Nucleated Red Blood Cells % 0.1 %
[2025-04-16 00:23] LABS: Alanine Aminotransferase 15 U/L (7-40); Albumin 4.7 g/dL (3.2-4.8); Alkaline Phosphatase 53 U/L (46-116); Anion Gap 14 (5-15); Bilirubin, Total 0.5 mg/dL (0.2-1.0); Calcium 8.9 mg/dL (8.7-10.4); Carbon Dioxide 21 mmol/L (20-31); Glucose 79 mg/dL (74-106); Potassium 3.7 mmol/L (3.5-5.1); Sodium 144 mmol/L (136-145); Total Protein 7.8 g/dL (5.7-8.2)
[2025-04-16 00:38] LABS: Chloride 109 mmol/L (98-107)
[2025-04-16 00:39] LABS: BUN/Creatinine Ratio 8.6 (10.0-20.0); Blood Urea Nitrogen < 5 mg/dL (9-23)
== END 2025-04-16 01:01 | disposition left against medical advice (07) ==
LOC: ER 22:24 → EDBD 22:24 → ER 04-16 01:01
DX: R56.9 Unspecified convulsions (principal); F10.10 Alcohol abuse, uncomplicated; F17.210 Nicotine dependence, cigarettes, uncomplicated; F41.9 Anxiety disorder, unspecified; Z79.899 Other long term (current) drug therapy; Y90.9 Presence of alcohol in blood, level not specified
CPT/HCPCS: 36415; 80053; 85025; 93005; 96361; 96374; 96375; 99284; J1953; J2060; J2405; J7030; 96365

== ENCOUNTER 2025-04-25 21:41 | Emergency (ER) | payer BC ==
[~2025-04-25] VITALS: Ht 165.1 cm; Wt 50.0 kg
[2025-04-25 22:05] VITALS: BP 93/54; PULSE 91; RESP 19; TEMP 100.2; O2SAT 97
[2025-04-25] MEDS: LORazepam 2MG/ML-1ML VIAL IV ONE (22:18)
--- NOTE | 2025-04-25 23:09 | ED.PDOC ---
HPI (NEURO) HPI Comments 35-year-old female who came to ER for seizures. Patient is seen here multiple times for seizures and alcoholism. Has been drinking alcohol again earlier today and started having episodes of seizures. No oral trauma noted Chief Complaint: Seizure Time Seen by MD: 23:09 Primary Care Provider: Rafael Vieyra Notes: Combining Machine Operator Notes Information Source: Patient Mode of Arrival: EMS Past Medical History PAST MEDICAL HISTORY: Anxiety, Seizures Surgical History: Denies all surgeries JOB COUNSELOR History: No Pertinent JOB COUNSELOR History Family History Family History: Reviewed,noncontributory to illness Social History Smoker: Cigarettes, Less Than 1 Pack/Day Alcohol: Heavy Drugs: Denies Drug Use Lives In: Home Constitutional: denies: chills, diaphoresis, fatigue, fever, malaise, sweats, weakness, others EENTM: denies: blurred vision, double vision, ear bleeding, ear discharge, ear drainage, ear pain, ear ringing, eye pain, eye redness, hearing loss, mouth pain, mouth swelling, nasal discharge, nose bleeding, nose congestion, nose pain, photophobia, tearing, throat pain, throat swelling, voice changes, others Respiratory: denies: cough, hemoptysis, orthopnea, SOB at rest, shortness of breath, SOB with excertion, stridor, wheezing, others Cardiovascular: denies: chest pain, dizzy spells, diaphoresis, Dyspnea on exertion, edema, irregular heart beat, left arm pain, lightheadedness, palpitations, PND, syncope, others Gastrointestinal: denies: abdomen distended, abdominal pain, blood streaked bowels, constipated, diarrhea, dysphagia, difficulty swallowing, hematemesis, melena, nausea, poor appetite, poor fluid intake, rectal bleeding, rectal pain, vomiting, others Genitourinary: denies: abnormal vagina bleeding, burning, dyspareunia, dysuria, flank pain, frequency, hematuria, incontinence, pain, , vagina discharge, urgency, others Neurological: reports: seizure; denies: dizziness, fainting, headache, left sided numbness, left sided weakness, numbness, paresthesia, pre-existing deficit, right sided numbness, right sided weakness, speech problems, tingling, tremors, weakness, others Musculoskeletal: denies: back pain, gout, joint pain, joint swelling, muscle pain, muscle stiffness, neck pain, others Integumetry: denies: bruises, change in color, change in hair/nails, dryness, laceration, lesions, lumps, rash, wounds, others Allergic/Immunocompromised: denies: Difficulty Healing, Frequent Infections, Hives, Itching, others Hematologic/Lymphatic: denies: anemia, blood clots, easy bleeding, easy bruising, swollen glands, others Endocrine: denies: excessive hunger, excessive sweating, excessive thirst, excessive urination, flushing, intolerance to cold, intolerance to heat, unexplained weight gain, unexplained weight loss, others Psychiatric: denies: anxiety, bipolar disorder, depression, hopeless, panic disorder, schizophrenia, sleepless, suicidal, others Physical Exam General Appearance: No Apparent Distress, Normal HEENT: Normal ENT Inspection, Pharynx Normal, TMs Normal Neck: Full Range of Motion, Non-Tender, Normal, Normal Inspection Respiratory: Chest Non-Tender, Lungs Clear, No Accessory Muscle Use, No Respiratory Distress, Normal Breath Sounds Cardiovascular: No Edema, No JVD, No Murmur, No Gallop, Normal Peripheral Pulses, Regular Rate/Rhythm Breast Exam: Deferred Gastrointestinal: No Organomegaly, Non Tender, No Pulsatile Mass, Normal Bowel Sounds, Soft Genitalia: Deferred Pelvic: Deferred Rectal: Deferred Extremities: No calf tenderness, Normal capillary refill, Normal inspection, Normal range of motion, Non-tender, No pedal edema Musculoskeletal : Apperance: Normal Neurologic: Alert, manager beverage II-XII nml as Tested, No Motor Deficits, Normal Affect, Normal Mood, No Sensory Deficits Cerebellar Function: Normal Reflexes: Normal Skin: Dry, Normal Color, Warm Lymphatic: No Adenopathy Was a procedure done? Was a procedure done?: No Differential Diagnosis (SZ) Seizure: Psychogenic Seizure, Alcohol Withdrawl, Epilepsy-Break Through, Epilepsy-Status X-Ray, Labs, Meds, VS Vital Signs Date Time Temp Pulse Resp B/P (MAP) Pulse Ox O2 Delivery O2 Flow Rate FiO2 04/25/25 22:05 100.2 91 19 93/54 (67) 97 100.2 04/25/25 22:05 91 19 97 Nasal Cannula* 2 28 04/25/25 21:45 98.0 103 22 101/67 99 98.0 Current Medications Medications (Trade) Dose Ordered Sig/Josephine Route Start Time Stop Time Status Last Admin Lorazepam (Ativan Inj) 1 mg ONCE ONCE IV 04/25/25 22:15 04/25/25 22:16 DC 04/25/25 22:18 Time of 1ST Reevaluation: 23:10 Reevaluation 1ST: Unchanged Patient Education/Counseling: Diagnosis, Treatment Family Education/Counseling: Diagnosis, Treatment Departure 1 Departure Time of Disposition: 01:00 Impression: Primary Impression: Alcohol abuse Additional Impression: Seizure disorder Disposition: LEFT AGAINST MEDICAL ADVICE Condition: Fair Discharged With: Relative, Spouse Critical Care Note Critical Care Time?: No Stability Stability form required: No Heart Score Heart Score: Heart Score Response (Comments) Value History N/A 0 EKG N/A 0 Age N/A 0 Risk Factors N/A 0 Troponin N/A 0 Total 0 I personally scribed for LYNN SPENCE MD ([email or web address]) on 04/25/25 at 23:09. Electronically submitted by Paulo Eden ([email or web address]). LYNN SPENCE MD Apr 25, 2025 23:09
== END 2025-04-25 23:12 | disposition left against medical advice (07) ==
LOC: EDBD 21:41 → ER 21:41
DX: G40.909 Epilepsy, unspecified, not intractable, without status epilepticus (principal); F10.20 Alcohol dependence, uncomplicated; F17.210 Nicotine dependence, cigarettes, uncomplicated; F41.9 Anxiety disorder, unspecified
CPT/HCPCS: 96374; 99283; J2060

== ENCOUNTER 2025-04-29 00:05 | Emergency (ER) | payer BC ==
[~2025-04-29] VITALS: Ht 157.5 cm; Wt 54.5 kg
[2025-04-29 00:14] VITALS: BP 105/75; PULSE 92; RESP 12; TEMP 97.8; O2SAT 91
[2025-04-29] MEDS: LORazepam 2MG/ML-1ML VIAL IV ONE (00:21)
--- NOTE | 2025-04-29 00:45 | ED.PDOC ---
HPI (NEURO) HPI Comments 35-year-old female with a history of alcohol abuse and convulsive like behavior when she is drunk now presents with some nausea and vomiting and convulsive movements after drinking alcohol. Chief Complaint: Seizure Time Seen by MD: 00:17 Primary Care Provider: Rafael Vieyra Notes: Accountant Machine Processing Notes Information Source: Emergency Med Personnel Mode of Arrival: EMS Severity: Moderate Headache Severity: Moderate Timing: Hours Duration: Since onset, Intermittent Past Medical History PAST MEDICAL HISTORY: Anxiety, Seizures Surgical History: Denies all surgeries CHUTE BOSS History: No Pertinent CHUTE BOSS History Family History Family History: Reviewed,noncontributory to illness Social History Smoker: Cigarettes, Less Than 1 Pack/Day Alcohol: Heavy Drugs: Denies Drug Use Lives In: Home Neurological: reports: seizure, tremors, others Psychiatric: reports: others (Alcohol abuse) All Other Systems: Reviewed and Negative Physical Exam General Appearance: Moderate Distress HEENT: Normal ENT Inspection, Pharynx Normal, TMs Normal Neck: Full Range of Motion, Non-Tender, Normal, Normal Inspection Respiratory: Chest Non-Tender, Lungs Clear, No Accessory Muscle Use, No Respiratory Distress, Normal Breath Sounds Cardiovascular: No Edema, No JVD, No Murmur, No Gallop, Normal Peripheral Pulses, Regular Rate/Rhythm Breast Exam: Deferred Gastrointestinal: No Organomegaly, Non Tender, No Pulsatile Mass, Normal Bowel Sounds, Soft Genitalia: Deferred Pelvic: Deferred Rectal: Deferred Extremities: No calf tenderness, Normal capillary refill, Normal inspection, Normal range of motion, Non-tender, No pedal edema Musculoskeletal : Apperance: Normal Neurologic: Alert, sales attendant building materials II-XII nml as Tested, No Motor Deficits, Normal Affect, Normal Mood, No Sensory Deficits Cerebellar Function: Normal Reflexes: Normal Skin: Dry, Normal Color, Warm Lymphatic: No Adenopathy Was a procedure done? Was a procedure done?: No Differential Diagnosis (SZ) Seizure: Hyperventilation, Psychogenic Seizure, Alcohol Withdrawl, Ant iconvulsant Withdrawl, Closed Head Injury, CVA/TIA, Drug Ingestion, Hypocalcemia, Hypoglycemia, Hyponatremia, Hypoxemia, Idiopathic, Mass Lesion, Encephalopathy, Epilepsy-Break Through, Epilepsy-Status, Other X-Ray, Labs, Meds, VS Vital Signs Date Time Temp Pulse Resp B/P (MAP) Pulse Ox O2 Delivery O2 Flow Rate FiO2 04/29/25 02:13 Room Air* 0 21 12/1/25 00:14 97.8 92 12 105/75 (85) 91 97.8 04/29/25 00:05 98.7 118 18 118/80 95 98.7 Lab Test 04/29/25 00:56 04/29/25 00:26 Range/Units Urine Color Pending Urine Clarity Pending Urine pH Pending Urine Specific [place] Pending Urine Protein Pending Urine Ketones Pending Urine Blood Pending Urine Nitrite Pending Urine Bilirubin Pending Urine Urobilinogen Pending Urine Leukocyte Esterase Pending Urine RBC Pending Urine Microscopic WBC Pending Urine Squamous Epithelial Cells Pending Urine Bacteria Pending Urine Glucose Pending White Blood Count 6.3 4.4-10.8 10^3/uL Red Blood Count 4.70 4.0-5.20 10^6/uL Hemoglobin 14.2 12.2-16.2 g/dL Hematocrit 42.6 36.0-46.0 % Mean Corpuscular Volume 90.5 80.0-100.0 fL Mean Corpuscular Hemoglobin 30.2 28.0-32.0 pg Mean Corpuscular Hemoglobin Concent 33.4 32.0-36.0 g/dL Red Cell Distribution Width 15.0 H 11.8-14.3 % Platelet Count 294 140-450 10^3/uL Mean Platelet Volume 7.0 6.9-10.8 fL Neutrophils (%) (Auto) 58.7 37.0-80.0 % Lymphocytes (%) (Auto) 34.4 10.0-50.0 % Monocytes (%) (Auto) 5.2 0.0-12.0 % Eosinophils (%) (Auto) 0.9 0.0-7.0 % Basophils (%) (Auto) 0.8 0.0-2.0 % Neutrophils # (Auto) 3.7 1.6-8.6 10 ^3/uL Lymphocytes # (Auto) 2.2 0.4-5.4 10 ^3/uL Monocytes # (Auto) 0.3 0-1.3 10 ^3/uL Eosinophils # (Auto) 0.1 0-0.8 10 ^3/uL Basophils # (Auto) 0 0-0.2 10 ^3/uL Nucleated Red Blood Cells 0.0 % Sodium Level 139 136-145 mmol/L Potassium Level 3.8 3.5-5.1 mmol/L Chloride Level 101 98-107 mmol/L Carbon Dioxide Level 25 20-31 mmol/L Anion Gap 13 5-15 Blood Urea Nitrogen 8 L 9-23 mg/dL Creatinine 0.60 0.550-1.02 mg/dL Glomerular Filtration Rate Calc 120 >90 mL/min BUN/Creatinine Ratio 13.3 10.0-20.0 Serum Glucose 85 74-106 mg/dL Calcium Level 9.7 8.7-10.4 mg/dL Magnesium Level 2.2 1.6-2.6 mg/dL Total Bilirubin 0.3 0.2-1.0 mg/dL Aspartate Amino Transferase (AST) 16 13-40 U/L Alanine Aminotransferase (ALT) 14 7-40 U/L Alkaline Phosphatase 59 46-116 U/L Total Protein 8.2 5.7-8.2 g/dL Albumin 5.2 H 3.2-4.8 g/dL Plasma/Serum Blood Alcohol 332.7 H <10 mg/dL Current Medications Medications (Trade) Dose Ordered Sig/Josephine Route Start Time Stop Time Status Last Admin Lorazepam (Ativan Inj) 2 mg ONCE ONCE IV 04/29/25 01:00 04/29/25 01:01 DC 04/29/25 00:21 Haloperidol Lactate (Haldol) 10 mg ONCE ONCE IM 04/29/25 02:15 04/29/25 02:16 DC 04/29/25 02:11 Time of 1ST Reevaluation: 00:44 Reevaluation 1ST: Unchanged Patient Education/Counseling: Other (drunk, alcohol abuse) Family Education/Counseling: No Family Present Departure 1 Departure Time of Disposition: 06:00 Impression: Primary Impression: Alcohol abuse Additional Impression: Recurrent seizures Disposition: 01 HOME / SELF CARE / HOMELESS Condition: Stable Discharged With: Self Critical Care Note Critical Care Time?: No Stability Stability form required: No Heart Score Heart Score: Heart Score Response (Comments) Value History N/A 0 EKG N/A 0 Age N/A 0 Risk Factors N/A 0 Troponin N/A 0 Total 0 LYNN SPENCE MD Apr 29, 2025 00:45
[2025-04-29] MEDS: LORazepam 2MG/ML-1ML VIAL ONE (00:49)
[2025-04-29 00:54] LABS: Hematocrit 42.6 % (36.0-46.0); Hemoglobin 14.2 g/dL (12.2-16.2); Mean Corpuscular Hemoglobin 30.2 pg (28.0-32.0); Mean Corpuscular Volume 90.5 fL (80.0-100.0); Nucleated Red Blood Cells % 0.0 %
[2025-04-29 01:09] LABS: Alanine Aminotransferase 14 U/L (7-40); Albumin 5.2 g/dL (3.2-4.8); Alkaline Phosphatase 59 U/L (46-116); Anion Gap 13 (5-15); BUN/Creatinine Ratio 13.3 (10.0-20.0); Bilirubin, Total 0.3 mg/dL (0.2-1.0); Blood Urea Nitrogen 8 mg/dL (9-23); Calcium 9.7 mg/dL (8.7-10.4); Carbon Dioxide 25 mmol/L (20-31); Chloride 101 mmol/L (98-107); Glucose 85 mg/dL (74-106); Magnesium 2.2 mg/dL (1.6-2.6); Potassium 3.8 mmol/L (3.5-5.1); Sodium 139 mmol/L (136-145); Total Protein 8.2 g/dL (5.7-8.2)
[2025-04-29] MEDS: HALOPERIDOL LACTATE 5 MG/ML INJ VIAL IM ONE (02:11)
== END 2025-04-29 06:19 | disposition home or self-care (01) ==
LOC: ER 00:05 → EDBD 00:05 → ER 05:43
DX: G40.909 Epilepsy, unspecified, not intractable, without status epilepticus (principal); F10.10 Alcohol abuse, uncomplicated; F41.9 Anxiety disorder, unspecified; F17.210 Nicotine dependence, cigarettes, uncomplicated; Y90.8 Blood alcohol level of 240 mg/100 ml or more
CPT/HCPCS: 36415; 80053; 80320; 82947; 83735; 85025; 96372; 96374; 99284; J1630; J2060

== ENCOUNTER 2025-05-01 23:10 | Emergency (ER) | payer BC ==
[~2025-05-01] VITALS: Ht 167.6 cm; Wt 50.0 kg
[2025-05-02 00:19] LABS: Hematocrit 40.2 % (36.0-46.0); Hemoglobin 13.4 g/dL (12.2-16.2); Mean Corpuscular Hemoglobin 30.2 pg (28.0-32.0); Mean Corpuscular Volume 90.6 fL (80.0-100.0); Nucleated Red Blood Cells % 0.1 %
[2025-05-02 00:20] VITALS: BP 98/71; RESP 12; TEMP 97.9
[2025-05-02 00:23] LABS: Chloride 106 mmol/L (98-107); Potassium 4.1 mmol/L (3.5-5.1); Sodium 144 mmol/L (136-145)
[2025-05-02 00:24] LABS: Anion Gap 11 (5-15); Calcium 9.2 mg/dL (8.7-10.4); Carbon Dioxide 27 mmol/L (20-31)
[2025-05-02 00:29] LABS: BUN/Creatinine Ratio 11.1 (10.0-20.0); Glucose 80 mg/dL (74-106)
[2025-05-02 00:30] VITALS: PULSE 68; O2SAT 98
[2025-05-02 00:30] LABS: Blood Urea Nitrogen 7 mg/dL (9-23)
[2025-05-02] MEDS: levETIRAcetam 1000 mg/100ml 100 ML IV ONE (00:53)
[2025-05-02 01:31] LABS: Urine Protein, UAD Negative (Negative)
--- NOTE | 2025-05-02 02:25 | ED.PDOC ---
Altered Mental Status HPI Comments 35-year-old female brought in by EMS. Patient has history of seizures. EMS was called by , has been states patient had six seizures this evening. With EMS, patient states that she did not have a few beers and to hard alcohol drinks. Patient has a history of alcohol abuse. Patient states she took her m orning dose of Keppra but did not take afternoon dose. Upon transfer, EMS states patient did have one additional seizure. Upon arrival patient had 2nd seizure. Though patient shows no postictal phase after seizure she is having vomiting. Chief Complaint: Seizure Time Seen by MD: 23:49 Primary Care Provider: Rafael Reviewed Notes: Nurses Notes Allergies: Coded Allergies: NO KNOWN ALLERGIES (Unverified , 06/19/16) Home Meds Active Scripts Ibuprofen (Ibuprofen) 600 Mg Tab, 1 TAB PO TID PRN for 5 Days, #15 TAB Prov:NANCY GEE MD 04/07/25 Acetaminophen (Acetaminophen Er) 650 Mg Tab, 650 MG PO TIDPRN PRN, #15 TAB Prov:NANCY GEE MD 04/07/25 Ondansetron Odt 4MG Tab (ZOFRAN PO) 4 Mg Tb, 4 MG PO BID for 5 Days, #10 TAB ODT TAB-DISSOLVE IN MOUTH, THEN SWALLOW Prov:KELSEY BERNARD RESIDENT 01/26/25 Information Source: Patient, Emergency Med Personnel Mode of Arrival: EMS Past Medical History PAST MEDICAL HISTORY: Anxiety, Seizures Surgical History: Denies all surgeries PAI GOW MANAGER History: No Pertinent PAI GOW MANAGER History Family History Family History: Reviewed,noncontributory to illness Social History Smoker: Cigarettes, Less Than 1 Pack/Day Alcohol: Heavy Drugs: Denies Drug Use Lives In: Home Constitutional: denies: chills, diaphoresis, fatigue, fever, malaise, sweats, weakness, others EENTM: denies: blurred vision, double vision, ear bleeding, ear discharge, ear drainage, ear pain, ear ringing, eye pain, eye redness, hearing loss, mouth pain, mouth swelling, nasal discharge, nose bleeding, nose congestion, nose pain, photophobia, tearing, throat pain, throat swelling, voice changes, others Respiratory: denies: cough, hemoptysis, orthopnea, SOB at rest, shortness of breath, SOB with excertion, stridor, wheezing, others Cardiovascular: denies: chest pain, dizzy spells, diaphoresis, Dyspnea on exertion, edema, irregular heart beat, left arm pain, lightheadedness, palpitations, PND, syncope, others Gastrointestinal: denies: abdomen distended, abdominal pain, blood streaked bowels, constipated, diarrhea, dysphagia, difficulty swallowing, hematemesis, melena, nausea, poor appetite, poor fluid intake, rectal bleeding, rectal pain, vomiting, others Genitourinary: denies: abnormal vagina bleeding, burning, dyspareunia, dysuria, flank pain, frequency, hematuria, incontinence, pain, , vagina discharge, urgency, others Neurological: denies: dizziness, fainting, headache, left sided numbness, left sided weakness, numbness, paresthesia, pre-existing deficit, right sided numbness, right sided weakness, seizure, speech problems, tingling, tremors, weakness, others Musculoskeletal: denies: back pain, gout, joint pain, joint swelling, muscle pain, muscle stiffness, neck pain, others Integumetry: denies: bruises, change in color, change in hair/nails, dryness, laceration, lesions, lumps, rash, wounds, others Allergic/Immunocompromised: denies: Difficulty Healing, Frequent Infections, Hives, Itching, others Hematologic/Lymphatic: denies: anemia, blood clots, easy bleeding, easy bruising, swollen glands, others Physical Exam General Appearance: No Apparent Distress, Normal HEENT: Normal ENT Inspection, Pharynx Normal, TMs Normal Neck: Full Range of Motion, Non-Tender, Normal, Normal Inspection Respiratory: Chest Non-Tender, Lungs Clear, No Accessory Muscle Use, No Respira tory Distress, Normal Breath Sounds Cardiovascular: No Edema, No JVD, No Murmur, No Gallop, Normal Peripheral Pulses, Regular Rate/Rhythm Breast Exam: Deferred Gastrointestinal: No Organomegaly, Non Tender, No Pulsatile Mass, Normal Bowel Sounds, Soft Genitalia: Deferred Pelvic: Deferred Rectal: Deferred Extremities: No calf tenderness, Normal capillary refill, Normal inspection, Normal range of motion, Non-tender, No pedal edema Musculoskeletal : Apperance: Normal Neurologic: Alert, automatic oven operator II-XII nml as Tested, No Motor Deficits, Normal Affect, Normal Mood, No Sensory Deficits Cerebellar Function: Normal Reflexes: Normal Skin: Dry, Normal Color, Warm Lymphatic: No Adenopathy Was a procedure done? Was a procedure done?: No Differential Diagnosis (ALOC) Differential Diagnosis: Dehydration, Hypoglycemia, DKA, Encephalopathy X-Ray, Labs, Meds, VS Vital Signs Date Time Temp Pulse Resp B/P (MAP) Pulse Ox O2 Delivery O2 Flow Rate FiO2 05/02/25 00:30 68 98 Room Air* 0 21 05/02/25 00:20 97.9 78 12 98/71 (80) 97.9 05/01/25 23:15 97.6 84 14 94/52 97 97.6 Lab Test 05/02/25 00:04 05/01/25 23:43 Range/Units White Blood Count 6.6 4.4-10.8 10^3/uL Red Blood Count 4.44 4.0-5.20 10^6/uL Hemoglobin 13.4 12.2-16.2 g/dL Hematocrit 40.2 36.0-46.0 % Mean Corpuscular Volume 90.6 80.0-100.0 fL Mean Corpuscular Hemoglobin 30.2 28.0-32.0 pg Mean Corpuscular Hemoglobin Concent 33.3 32.0-36.0 g/dL Red Cell Distribution Width 14.3 11.8-14.3 % Platelet Count 256 140-450 10^3/uL Mean Platelet Volume 7.2 6.9-10.8 fL Neutrophils (%) (Auto) 55.8 37.0-80.0 % Lymphocytes (%) (Auto) 35.3 10.0-50.0 % Monocytes (%) (Auto) 6.0 0.0-12.0 % Eosinophils (%) (Auto) 1.7 0.0-7.0 % Basophils (%) (Auto) 1.2 0.0-2.0 % Neutrophils # (Auto) 3.7 1.6-8.6 10 ^3/uL Lymphocytes # (Auto) 2.3 0.4-5.4 10 ^3/uL Monocytes # (Auto) 0.4 0-1.3 10 ^3/uL Eosinophils # (Auto) 0.1 0-0.8 10 ^3/uL Basophils # (Auto) 0.1 0-0.2 10 ^3/uL Nucleated Red Blood Cells 0.1 % Sodium Level 144 # 136-145 mmol/L Potassium Level 4.1 3.5-5.1 mmol/L Chloride Level 106 98-107 mmol/L Carbon Dioxide Level 27 20-31 mmol/L Anion Gap 11 5-15 Blood Urea Nitrogen 7 L 9-23 mg/dL Creatinine 0.63 0.550-1.02 mg/dL Glomerular Filtration Rate Calc 119 >90 mL/min BUN/Creatinine Ratio 11.1 10.0-20.0 Serum Glucose 80 74-106 mg/dL Calcium Level 9.2 8.7-10.4 mg/dL Plasma/Serum Blood Alcohol 279.5 H <10 mg/dL Urine Color Colorless Yellow Urine Clarity Clear Clear Urine pH 5.5 5.0-9.0 Urine Specific Bentley 1.003 1.001-1.035 Urine Protein Negative Negative Urine Ketones Negative Negative Urine Blood Negative Negative /uL Urine Nitrite Negative Negative Urine Bilirubin Negative Negative Urine Urobilinogen Normal Negative mg/dL Urine Leukocyte Esterase Negative Negative /uL Urine RBC 1 0 - 4 /hpf Urine Microscopic WBC < 1 0-5 /HPF Urine Squamous Epithelial Cells Few <5 /hpf Urine Bacteria None seen None Seen /hpf Urine Glucose Normal Normal mg/dL Urine Opiates Screen Pending Urine Fentanyl Screen Pending Urine Barbiturates Screen Pending Urine Phencyclidine Screen Pending Urine Amphetamines Screen Pending Urine Benzodiazepines Screen Pending Urine Cocaine Screen Pending Urine Cannabinoids Screen Pending Current Medications Medications (Trade) Dose Ordered Sig/Josephine Route Start Time Stop Time Status Last Admin Levetiracetam 100 ml @ 400 mls/hr ONCE ONCE IV 05/02/25 00:00 05/02/25 00:14 DC 05/02/25 00:53 X-Ray, Labs, Meds, VS Comment Imaging was reviewed by this provider, there is no obvious pathological or acute disease process. Pending radiology review Labs were reviewed by this provider, no abnormalities Vital signs reviewed by this provider, clinically stable Time of 1ST Reevaluation: 02:25 Reevaluation 1ST: Unchanged Patient Education/Counseling: Diagnosis, Treatment, Need For Follow Up (Follow up with PCP next available appointment.) Family Education/Counseling: Diagnosis, Treatment SEPSIS Sepsis Screen Date sepsis recognized/suspect: May 02, 2025 Time Sepsis recognized/suspect: 44 Recent Procedure: No On Antibiotic Therapy: No Respiratory Rate >20: No Heart Rate >90: No Temp<36 C (96.8 F) or >38.3 C: No SBP <90 or MAP <65 mmHG: No New Acute Mental Status Change: No Is the patient on CPAP, BIPAP,: No Physician Orders Drug Screen (05/01/25 23:56) Vital Signs Date Time Temp Pulse Resp B/P (MAP) Pulse Ox O2 Delivery O2 Flow Rate FiO2 05/02/25 00:30 68 98 Room Air* 0 21 05/02/25 00:20 97.9 78 12 98/71 (80) 97.9 05/01/25 23:15 97.6 84 14 94/52 97 97.6 Laboratory Tests Test 05/02/25 00:04 White Blood Count 6.6 10^3/uL (4.4-10.8) Medications Medications Dose Ordered Sig/Josephine Route Start Time Stop Time Status Last Admin Dose Admin Levetiracetam 100 ml @ 400 mls/hr ONCE ONCE IV 05/02/25 00:00 05/02/25 00:14 DC 05/02/25 00:53 Departure 1 Departure Time of Disposition: 02:23 Impression: Primary Impression: ETOH abuse Additional Impression: Seizure Disposition: 01 HOME / SELF CARE / HOMELESS Condition: Stable Discharged With: Self Critical Care Note Critical Care Time?: No Stability Stability form required: No Heart Score Heart Score: Heart Score Response (Comments) Value History N/A 0 EKG N/A 0 Age N/A 0 Risk Factors N/A 0 Troponin N/A 0 Total 0 ESAU AVENDAÑO May 02, 2025 02:25
[2025-05-02] MEDS: HALOPERIDOL LACTATE 5 MG/ML INJ VIAL ONE (02:33)
[2025-05-02] MEDS: HALOPERIDOL LACTATE 5 MG/ML INJ VIAL IM ONE (02:33)
[2025-05-02 03:43] LABS: Amphetamine Screen, Urine Neg (NEGATIVE); Benzodiazephine Screen, Urine Pos (NEGATIVE); Cannabinoid Screen, Urine Neg (NEGATIVE); Cocaine Screen, Urine Neg (NEGATIVE); Opiate Scree,Urine Neg (NEGATIVE); Phencyclidine Screen, Urine Neg (NEGATIVE)
[2025-05-02 04:32] LABS: Barbiturate Scree,Urine Neg (NEGATIVE)
== END 2025-05-02 04:40 | disposition home or self-care (01) ==
LOC: EDBD 23:10 → ER 23:10
DX: F10.10 Alcohol abuse, uncomplicated (principal); R56.9 Unspecified convulsions; F17.210 Nicotine dependence, cigarettes, uncomplicated; F41.9 Anxiety disorder, unspecified; Z79.899 Other long term (current) drug therapy; Y90.8 Blood alcohol level of 240 mg/100 ml or more
CPT/HCPCS: 36415; 80048; 80307; 80320; 81001; 82947; 85025; 96365; 96372; 99284; J1630; J1953; 96374

== ENCOUNTER 2025-05-06 22:36 | Emergency (ER) | payer BC ==
[~2025-05-06] VITALS: Ht 157.5 cm; Wt 50.0 kg
[2025-05-06] MEDS: LORazepam 2MG/ML-1ML VIAL IV ONE (22:54)
[2025-05-06] MEDS: LORazepam 2MG/ML-1ML VIAL ONE (22:54)
[2025-05-06 23:00] VITALS: BP 117/80; PULSE 80; RESP 16; TEMP 97; O2SAT 100
[2025-05-06] MEDS: SODIUM CHLORIDE 0.9% 1,000 ML IV ONE (23:30)
--- NOTE | 2025-05-06 23:42 | ED.PDOC ---
HPI (NEURO) HPI Comments HPI: Poor Historian. 35-year-old female with history of alcohol abuse and seizure disorder on Keppra. Patient states she has been out of her Keppra for the last two weeks. Patient had witnessed seizures at home today. He has been called 911. She also has some witnessed seizure episodes in route by EMS. On arrival patient is not postictal is back to her baseline however she had another witnessed seizure here in the ED. Patient received Versed in route and then received Ativan here on arrival after her 1st witnessed seizure here in the ED. Patient is ambulating in the ED refusing any additional treatment accept Kera and she wants to leave against medical advice. Her is at bedside. Patient comes to the hospital frequently for the same presentation. Patient has a slight head bump during her seizure today. Denies any pain. Past Medical History: Alcohol abuse, seizure disorder Past Surgical History: REVIEW OF SYSTEMS: CONSTITUTIONAL: Denies acute: fever, diaphoresis, chills, generalized weakness. HEAD: Denies acute: headache, photophobia Eyes: Denies acute: Double vision, vision loss, eye pain, eye discharge. EARS: Denies acute: tinnitus, hearing loss, ear discharge, ear pain, THROAT: Denies acute: sore throat, swelling, difficulty swallowing , pain with swallowing, change in voice. NECK: Denies acute: neck pain, neck swelling, stiff neck. HEART: Denies acute : chest pain, palpitations, LUNGS: Denies acute: SOB, wheezing, cough, hemoptysis ABDOMEN: Denies acute: abdominal pain, Nausea, Vomiting, diarrhea, melena , hematemesis, hematochezia SKIN: Denies acute: rash, redness, lesions, itchiness. EXTREMITIES: Denies acute: calf pain, numbness, tingling, weakness, denies pain in extremity. Denies acute: Low back pain. Neuro: Denies acute: focal neurological deficit, motor or sensory focal neurological deficit, dizziness, loss of bowel or bladder function, cauda equina like symptoms. : Denies acute: dysuria, hematuria, flank pain, increase in urinary frequency. PSYCH: Denies acute: hallucination, suicidal ideation, homicidal ideation. FEMALE: Denies acute: abnormal vaginal bleeding, foul odor, unusual discharge. PHYSICAL EXAM: General: -----no---acute distress, awake and alert. Head: normocephalic, atraumatic. No raccoon's eyes, no lynne sign. Neck: supple, trachea is midline, no swelling. Cervical spine: Palpation of the posterior midline of the cervical spine reveals no focal swelling, erythema, focal tenderness to palpation. Patient has normal range of motion. Throat: Normal phonation. Eyes:, no erythema, no purulent discharge, no proptosis, no icterus. Heart: regular rate, regular rhythm, no significant murmur appreciated. Lungs: no apparent respiratory distress, Able to speak in full sentences. No wheezing, no rhonchi, no crackles. No stridors Clear to auscultation bilaterally. Abdomen: non tender to palpation, non distended, soft, no guarding, no rebound, + bowel sounds. Neuro: Awake, Alert, oriented to name, self, situation, follows commands GCS=15. Speech is normal. Skin: no petechia, no purpura, no cyanosis, non-pale, not jaundice. Lower extremities: --no - Pitting edema no deformity, no focal swelling, no calf TTP. Makes eye contact. moves all four extremities. Face: no apparent facial droop. Ambulating in the ED independently. PERRLA, EOM-I CN 2-12 are grossly intact, No nystagmus. No nuchal rigidity, Kernig's sign, Brudzinski's sign, no meningeal signs. ED COURSE: DISCLAIMER: This medical document was created using an electronic medical record system with voice recognition software and computerized dictation system. Although this document has been carefully reviewed, there might still be some phonetic and typographical errors. Occasional wrong-word or "sound-alike" substitutions may have occurred due to the inherent limitations of voice recognition software. These areas are purely typographical due to imperfections of the software programs and do not reflect any compromise in the patient's medical care. Please read the chart carefully and recognize, using context, where these substitutions have occurred. Chief Complaint: Seizure Time Seen by MD: 23:38 Primary Care Provider: Rafael Vieyra Notes: Allergies Information Source: Patient, Spouse Mode of Arrival: EMS Past Medical History PAST MEDICAL HISTORY: Anxiety, Seizures Surgical History: Denies all surgeries EQUIPMENT SPECIALIST History: No Pertinent EQUIPMENT SPECIALIST History Family History Family History: Reviewed,noncontributory to illness Social History Smoker: Cigarettes, Less Than 1 Pack/Day Alcohol: Heavy Drugs: Denies Drug Use Lives In: Home Was a procedure done? Was a procedure done?: No Differential Diagnosis (SZ) Seizure: Other (SEIZUREDDX include not limited to CVA, cerebellar ischemia/infarct, carotid stenosis, vertebral/carotid artery dissection,, vertebrobasillary insufficiency, Intracranial mass/infection/bleed, encephalopathy, elctrolyte abnormality, thyroid disease, multiple sclerosis, hypoglycemia, drug toxicity, cardiac arrhythmia, sub-theraputic anti-convulsion medications, known seizure disorder, pseudo-seizure.) X-Ray, Labs, Meds, VS Vital Signs Date Time Temp Pulse Resp B/P (MAP) Pulse Ox O2 Delivery O2 Flow Rate FiO2 05/06/25 23:00 80 16 100 Room Air* 0 21 05/06/25 23:00 97.0 80 16 117/80 (92) 100 97.0 05/06/25 22:40 97.0 80 16 117/80 100 97.0 Lab Test 05/06/25 23:33 Range/Units White Blood Count 6.6 4.4-10.8 10^3/uL Red Blood Count 4.52 4.0-5.20 10^6/uL Hemoglobin 13.7 12.2-16.2 g/dL Hematocrit 41.4 36.0-46.0 % Mean Corpuscular Volume 91.7 80.0-100.0 fL Mean Corpuscular Hemoglobin 30.3 28.0-32.0 pg Mean Corpuscular Hemoglobin Concent 33.1 32.0-36.0 g/dL Red Cell Distribution Width 14.5 H 11.8-14.3 % Platelet Count 247 140-450 10^3/uL Mean Platelet Volume 7.2 6.9-10.8 fL Neutrophils (%) (Auto) 55.7 37.0-80.0 % Lymphocytes (%) (Auto) 36.4 10.0-50.0 % Monocytes (%) (Auto) 5.4 0.0-12.0 % Eosinophils (%) (Auto) 1.3 0.0-7.0 % Basophils (%) (Auto) 1.2 0.0-2.0 % Neutrophils # (Auto) 3.7 1.6-8.6 10 ^3/uL Lymphocytes # (Auto) 2.4 0.4-5.4 10 ^3/uL Monocytes # (Auto) 0.4 0-1.3 10 ^3/uL Eosinophils # (Auto) 0.1 0-0.8 10 ^3/uL Basophils # (Auto) 0.1 0-0.2 10 ^3/uL Nucleated Red Blood Cells 0.0 % Sodium Level 147 H 136-145 mmol/L Potassium Level 4.6 3.5-5.1 mmol/L Chloride Level 111 H 98-107 mmol/L Carbon Dioxide Level 28 20-31 mmol/L Anion Gap 8 5-15 Blood Urea Nitrogen 8 L 9-23 mg/dL Creatinine 0.64 0.550-1.02 mg/dL Glomerular Filtration Rate Calc 118 >90 mL/min BUN/Creatinine Ratio 12.5 10.0-20.0 Serum Glucose 80 74-106 mg/dL Lactic Acid Level 2.5 *H 0.4-2.0 mmol/L Calcium Level 9.4 8.7-10.4 mg/dL Magnesium Level 2.1 1.6-2.6 mg/dL Total Bilirubin 0.3 0.2-1.0 mg/dL Aspartate Amino Transferase (AST) 14 13-40 U/L Alanine Aminotransferase (ALT) 12 7-40 U/L Alkaline Phosphatase 47 46-116 U/L Troponin I High Sensitivity < 3 L </=34 ng/L Total Protein 7.4 5.7-8.2 g/dL Albumin 4.7 3.2-4.8 g/dL Plasma/Serum Blood Alcohol 284.0 H <10 mg/dL Time of 1ST Reevaluation: 00:00 Reevaluation 1ST: N/A Patient Education/Counseling: Diagnosis, Treatment Family Education/Counseling: Diagnosis, Treatment Comments MDM: patient presented with the above HPI.---seizure---workup was initiated. patient was found with the above mentioned diagnosis. the following medications were ordered: please refer to order lists of meds and tests obtained by myself Dr. Cyr. Patient ED course and VS have been stabilized. Patient has been reassessed in the ED and remained in a stable condition. an. Escalation of care considered: Consideration of escalation to observation or admission Patient insisted on leaving against medical advice with the at bedside. Patient agreed to take the Keppra before she leaves. Patient is seen walking out of the emergency department. All the reports of any imaging studies that were ordered by myself were reviewed by myself. Departure 1 Departure Time of Disposition: 23:38 Impression: Primary Impression: Recurrent seizures Additional Impressions: Alcohol abuse Noncompliance with medication regimen Left against medical advice Disposition: 07 LEFT AGAINST MEDICAL ADVICE Condition: Guarded Additional Instructions: Please seek help immediately. Please get your Keppra medications NIKOLAI. Follow up with Neurology NIKOLAI. Seek help regarding your alcohol abuse. Seizure precautions. Return to the emergency department if you change your mind. Discharged With: Self, Spouse Critical Care Note Critical Care Time?: Yes (35 min-critical care time only) Critical care comment: Due to a high probability of clinically significant, life threatening deterior ation, the patient required my highest level of preparedness to intervene emergently and I personally spent this critical care time directly and personally managing the patient. This critical care time included obtaining a history; examining the patient; pulse oximetry; ordering and review of studies; arranging urgent treatment with development of a management plan; evaluation of patient's response to treatment; frequent reassessment; and, discussions with other providers. This critical care time was performed to assess and manage the high probability of imminent, life-threatening deterioration that could result in multi-organ failure. It was exclusive of separately billable procedures and treating other patients and teaching time. Please see my other sections and the rest of the note for further information on patient assessment and treatment. ARTEMIO CYR DO May 06, 2025 23:42
[2025-05-06] MEDS: levETIRAcetam 1000 mg/100ml 100 ML IV ONE (23:55)
[2025-05-07 00:01] LABS: Hematocrit 41.4 % (36.0-46.0); Hemoglobin 13.7 g/dL (12.2-16.2); Mean Corpuscular Hemoglobin 30.3 pg (28.0-32.0); Mean Corpuscular Volume 91.7 fL (80.0-100.0); Nucleated Red Blood Cells % 0.0 %
[2025-05-07 00:14] LABS: Alanine Aminotransferase 12 U/L (7-40); Albumin 4.7 g/dL (3.2-4.8); Alkaline Phosphatase 47 U/L (46-116); Anion Gap 8 (5-15); BUN/Creatinine Ratio 12.5 (10.0-20.0); Calcium 9.4 mg/dL (8.7-10.4); Carbon Dioxide 28 mmol/L (20-31); Glucose 80 mg/dL (74-106); Magnesium 2.1 mg/dL (1.6-2.6); Potassium 4.6 mmol/L (3.5-5.1); Total Protein 7.4 g/dL (5.7-8.2)
--- NOTE | 2025-05-07 00:14 | DVH ---
CHEST RADIOGRAPH Indication: Seizure Technique: Single frontal view of the chest was obtained COMPARISON: XY CHEST PORTABLE on DOS: 04/14/25 FINDINGS: Lines and Tubes: None Lungs: Clear Pleura: No effusion. No pneumothorax. Cardiomediastinal contours: Unremarkable Bones: Unremarkable IMPRESSION: 1. No acute disease.
[2025-05-07 00:20] LABS: Lactic Acid w/Reflex 2.5 mmol/L (0.4-2.0)
[2025-05-07 00:21] LABS: Bilirubin, Total 0.3 mg/dL (0.2-1.0); Blood Urea Nitrogen 8 mg/dL (9-23); Chloride 111 mmol/L (98-107); Sodium 147 mmol/L (136-145)
== END 2025-05-07 | disposition left against medical advice (07) ==
LOC: ER 22:36 → EDBD 22:36 → ER 05-07
DX: G40.909 Epilepsy, unspecified, not intractable, without status epilepticus (principal); F10.10 Alcohol abuse, uncomplicated; F17.210 Nicotine dependence, cigarettes, uncomplicated; F41.9 Anxiety disorder, unspecified; Z53.29 Procedure and treatment not carried out because of patient's decision for other reasons; Z91.148 Patient's other noncompliance with medication regimen for other reason; Z79.899 Other long term (current) drug therapy; Y90.9 Presence of alcohol in blood, level not specified
CPT/HCPCS: 36415; 71045; 80053; 80320; 83605; 83735; 84484; 85025; 96374; 96375; 99284; J1953; J2060

== ENCOUNTER 2025-05-16 00:29 | Inpatient (IN) | payer BC ==
[~2025-05-16] VITALS: Ht 160 cm; Wt 72.8 kg
[2025-05-16] MEDS: LORazepam 2MG/ML-1ML VIAL IV ONE (01:09)
[2025-05-16] MEDS: LORazepam 2MG/ML-1ML VIAL ONE (01:16)
[2025-05-16] MEDS: levETIRAcetam 500 mg/100ml 100 ML IV ONE (01:17)
[2025-05-16] MEDS: SODIUM CHLORIDE 0.9% 1,000 ML IV ONE ×2 (01:17→06:33)
[2025-05-16 01:21] VITALS: PULSE 87; RESP 12; O2SAT 97
--- NOTE | 2025-05-16 01:29 | DVH ---
CHEST RADIOGRAPH INDICATION: seizure TECHNIQUE: Single frontal view of the chest was obtained COMPARISON: XY CHEST PORTABLE on DOS: 05/06/25, XY CHEST PORTABLE on DOS: 04/14/25 FINDINGS: Lines and Tubes: None Lungs: Clear Pleura: No effusion. No pneumothorax. Cardiomediastinal contours: Unremarkable Bones: Unremarkable IMPRESSION: 1. No acute disease.
[2025-05-16 02:04] LABS: Hematocrit 43.1 % (36.0-46.0); Hemoglobin 14.0 g/dL (12.2-16.2); Mean Corpuscular Hemoglobin 30.2 pg (28.0-32.0); Mean Corpuscular Volume 92.6 fL (80.0-100.0); Nucleated Red Blood Cells % 0.1 %
[2025-05-16 02:26] LABS: Alanine Aminotransferase 10 U/L (7-40); Alkaline Phosphatase 51 U/L (46-116); Anion Gap 14 (5-15); BUN/Creatinine Ratio 8.1 (10.0-20.0); Bilirubin, Total 0.3 mg/dL (0.2-1.0); Calcium 9.5 mg/dL (8.7-10.4); Carbon Dioxide 26 mmol/L (20-31); Magnesium 2.3 mg/dL (1.6-2.6); Potassium 4.5 mmol/L (3.5-5.1); Total Protein 8.2 g/dL (5.7-8.2)
[2025-05-16 02:32] LABS: Lactic Acid w/Reflex 5.5 mmol/L (0.4-2.0)
[2025-05-16 02:35] LABS: Albumin 5.0 g/dL (3.2-4.8); Blood Urea Nitrogen 5 mg/dL (9-23); Chloride 112 mmol/L (98-107); Glucose 64 mg/dL (74-106); Sodium 152 mmol/L (136-145)
[2025-05-16] MEDS ORDERED: DEXTROSE (25%) 10 ML SYRG IV ONE (02:45)
[2025-05-16 02:47] LABS: Urine Protein, UAD Negative (Negative)
[2025-05-16] MEDS: DEXTROSE (50%) 50ML SYRG IV ONE (03:00)
--- NOTE | 2025-05-16 06:06 | DVHHPRES ---
History of Present Illness Resident Creating Document: ERIC NAILS RESIDENT History of Present Illness Lupe Santacruz is a 35-year-old female with past medical history of seizures, insomnia, bipolar disorder, autism, psoriasis who presented to the hospital with complaints of multiple seizure episodes since yesterday. Patient states that she has been under stress in the past few days due to of her best friend. She has been drinking alcohol heavily yesterday and had multiple episodes of seizures. Patient states that she is on Keppra but her seizures are not controlled, having around 3 seizures a day. she was scheduled to undergo EEG by her neurologist Dr. Talley on Tuesday, but missed the appointment. She reports of tongue biting and confusion after the Seizure episode. she reports her last drink was 9 hours back. PMHx: seizures, insomnia, bipolar disorder, autism, psoriasis PSHx: Valvular heart repair at 3 months Family history: history of seizures in sister Social history: alcohol use twice a week, 15 pack year smoking history. Lives with Home medication: Keppra 500 b.i.d., alprazolam Allergic history: Benadryl Review of Systems Review of Systems General: patient denies fever, fatigue, weaknes, sweating, any recent changes in appetite and weight HEENT: complains of headache Cardiovascular: Denies chest pain, palpitations, dyspnea on exertion, orthopnea, or claudication. Respiratory: No cough, and wheezing. Gastrointestinal: Denies nausea, vomiting, dysphagia, odynophagia, heartburn, abdominal pain, flatulence, bloating, diarrhea, constipation, change in stool, or blood in stool. Genitourinary: No dysuria, hematuria, discharge, frequency, urgency, nocturia, incontinence, and urinary retention. Endocrine: No heat or cold intolerance, polydipsia, polyuria, and polyphagia. Neurological: No dizziness, extremity weakness and numbness, tremors, gait disturbance, seizures, and memory impairment. Psychiatric: Denies depression, anxiety,or insomnia. Musculoskeletal: Denies neck pain, stiffness and swelling, back pain, muscle weakness, joint pain, stiffness, swelling, or limited range of motion. Skin: No rashes, itching, skin lesion, changes in hair, nail, skin texture and breast. Hematologic/Lymphatic: Denies easy bruising, bleeding tendencies, or lymph node enlargement. Allergies: Coded Allergies: NO KNOWN ALLERGIES (Unverified , 1/21/17) Medications Current Medications Medications Dose Ordered Sig/Josephine Route Start Time Stop Time Status Last Admin Dose Admin Levetiracetam 100 ml @ 400 mls/hr BID IV 05/16/25 10:00 UNV Lorazepam 1 mg Q5MINP PRN IV 05/16/25 05:30 UNV Ondansetron HCl 4 mg Q8HPRN PRN IV 05/16/25 05:30 UNV Acetaminophen 650 mg Q6HR PO 05/16/25 07:00 UNV Exam Vital Signs Vital Signs Date Time Temp Pulse Resp B/P (MAP) Pulse Ox O2 Delivery O2 Flow Rate FiO2 05/16/25 05:00 98.4 76 12 101/68 (79) 97 98.4 05/16/25 01:21 Room Air* 0 21 Exam General Appearance: Alert, Oriented X3, Cooperative, No acute distress HEENT: Atraumatic, PERRLA, EOMI, Mucous membrane moist/pink Respiratory: Clear to auscultation, Normal air movement Cardiovascular: Regular rate, Normal S1, Normal S2, No murmurs, no chest wall tenderness Abdominal: Normal bowel sounds, Soft, No tenderness, No hepatospenomegaly, No masses Extremities: No clubbing, No cyanosis, No edema, Normal pulses, No tenderne ss/swelling Skin: No rashes, No breakdown, No significant lesion Neuro: Normal gait, Normal speech, Strength at 5/5 X4 ext, Normal tone, Sensation intact, Cranial nerves 3-12 NL, Reflexes 2+ Psych/Mental Status: Mental status NL, Mood NL Labs/Xrays Labs Test 05/16/25 03:25 05/16/25 01:27 05/16/25 00:57 Range/Units Lactic Acid Level 2.7 *H 0.4-2.0 mmol/L White Blood Count 5.7 4.4-10.8 10^3/uL Red Blood Count 4.66 4.0-5.20 10^6/uL Hemoglobin 14.0 12.2-16.2 g/dL Hematocrit 43.1 36.0-46.0 % Mean Corpuscular Volume 92.6 80.0-100.0 fL Mean Corpuscular Hemoglobin 30.2 28.0-32.0 pg Mean Corpuscular Hemoglobin Concent 32.6 32.0-36.0 g/dL Red Cell Distribution Width 14.3 11.8-14.3 % Platelet Count 323 140-450 10^3/uL Mean Platelet Volume 7.0 6.9-10.8 fL Neutrophils (%) (Auto) 56.9 37.0-80.0 % Lymphocytes (%) (Auto) 34.5 10.0-50.0 % Monocytes (%) (Auto) 7.7 0.0-12.0 % Eosinophils (%) (Auto) 0.2 0.0-7.0 % Basophils (%) (Auto) 0.7 0.0-2.0 % Neutrophils # (Auto) 3.2 1.6-8.6 10 ^3/uL Lymphocytes # (Auto) 2.0 0.4-5.4 10 ^3/uL Monocytes # (Auto) 0.4 0-1.3 10 ^3/uL Eosinophils # (Auto) 0 0-0.8 10 ^3/uL Basophils # (Auto) 0 0-0.2 10 ^3/uL Nucleated Red Blood Cells 0.1 % Sodium Level 152 H 136-145 mmol/L Potassium Level 4.5 3.5-5.1 mmol/L Chloride Level 112 H 98-107 mmol/L Carbon Dioxide Level 26 20-31 mmol/L Anion Gap 14 5-15 Blood Urea Nitrogen 5 L 9-23 mg/dL Creatinine 0.62 0.550-1.02 mg/dL Glomerular Filtration Rate Calc 119 >90 mL/min BUN/Creatinine Ratio 8.1 L 10.0-20.0 Serum Glucose 64 L 74-106 mg/dL Calcium Level 9.5 8.7-10.4 mg/dL Magnesium Level 2.3 1.6-2.6 mg/dL Total Bilirubin 0.3 0.2-1.0 mg/dL Aspartate Amino Transferase (AST) 12 L 13-40 U/L Alanine Aminotransferase (ALT) 10 7-40 U/L Alkaline Phosphatase 51 46-116 U/L Troponin I High Sensitivity < 3 L </=34 ng/L Total Protein 8.2 5.7-8.2 g/dL Albumin 5.0 H 3.2-4.8 g/dL Plasma/Serum Blood Alcohol 316.6 H <10 mg/dL Urine Color Colorless Yellow Urine Clarity Clear Clear Urine pH 5.0 5.0-9.0 Urine Specific [place] 1.003 1.001-1.035 Urine Protein Negative Negative Urine Ketones Negative Negative Urine Blood Negative Negative /uL Urine Nitrite Negative Negative Urine Bilirubin Negative Negative Urine Urobilinogen Normal Negative mg/dL Urine Leukocyte Esterase Negative Negative /uL Urine RBC 1 0 - 4 /hpf Urine Microscopic WBC < 1 0-5 /HPF Urine Squamous Epithelial Cells None seen <5 /hpf Urine Bacteria None seen None Seen /hpf Urine Glucose Normal Normal mg/dL SEPSIS Sepsis Screen Date sepsis recognized/suspect: May 16, 2025 Time Sepsis recognized/suspect: 011 Recent Procedure: No On Antibiotic Therapy: No Respiratory Rate >20: No Heart Rate >90: No Temp<36 C (96.8 F) or >38.3 C: No SBP <90 or MAP <65 mmHG: Yes New Acute Mental Status Change: Yes Is the patient on CPAP, BIPAP,: No Physician Orders Contracts Law Professor (05/16/25 ) Seizure Precautions (05/16/25 ) Chest Portable (05/16/25 00:41) Electrocardigram (05/16/25 00:41) Admit (05/16/25 05:22) Allergies (05/16/25 05:22) Code Status (05/16/25 05:22) Complete Blood Count (05/16/25 05:22) Comprehensive Metabolic Panel (05/16/25 05:22) Condition: Fair (05/16/25 05:22) Head Without Contrast (05/16/25 05:24) Levetiracetam (Keppra) (05/16/25 05:24) Levetiracetam 500 Mg/100ml (Levetiraceta (05/16/25 10:00) Seizure Precautions (05/16/25 ) Lorazepam 2mg/Ml Inj (Ativan Inj) (05/16/25 05:30) Sodium Chloride 0.9% (05/16/25 05:30) Ondansetron Hcl (Zofran) (05/16/25 05:30) Acetaminophen Tablet (Tylenol Tablet) (05/16/25 07:00) Folic Acid... (05/16/25 05:30) Thyroid Stimulating Hormone (05/16/25 05:24) Folate (Folic Acid) (05/16/25 05:24) Vitamin D, 25-Hydroxy (05/16/25 05:24) Pantoprazole (Protonix) (05/16/25 10:00) Vital Signs Date Time Temp Pulse Resp B/P (MAP) Pulse Ox O2 Delivery O2 Flow Rate FiO2 05/16/25 05:00 98.4 76 12 101/68 (79) 97 98.4 05/16/25 03:00 88 15 102/66 (78) 91 05/16/25 01:21 87 12 97 Room Air* 0 21 05/16/25 01:10 97.5 86 16 84/42 (56) 97 97.5 05/16/25 00:33 97.1 97 17 141/113 99 97.1 Laboratory Tests Test 05/16/25 01:27 05/16/25 03:25 Lactic Acid Level 5.5 mmol/L (0.4-2.0) *H 2.7 mmol/L (0.4-2.0) *H White Blood Count 5.7 10^3/uL (4.4-10.8) Medications Medications Dose Ordered Sig/Josephine Route Start Time Stop Time Status Last Admin Dose Admin Levetiracetam 100 ml @ 400 mls/hr ONCE ONCE IV 05/16/25 00:45 05/16/25 00:59 DC 05/16/25 01:17 400 MLS/HR Lorazepam 2 mg ONCE ONCE IV 05/16/25 01:15 05/16/25 01:16 DC 05/16/25 01:09 2 MG Sodium Chloride 1,000 ml @ 1,000 mls/hr Q1H ONCE IV 05/16/25 00:45 05/16/25 01:44 DC 05/16/25 01:17 1,000 MLS/HR Assessment/Plan Assessment/Plan Assessment and plan Breakthrough seizure Seizure disorder medication noncompliance Keppra IV Ativan p.r.n. for seizures Head CT Serum Keppra levels IV fluids Scheduled Tylenol Neurology consult as per primary team seizure precautions Acute alcohol poisoning Toxic encephalopathy due to above CIWA 4 IV fluids Folic acid Banana bag counseled on abstinence for 13 minutes Bipolar disorder Autism Insomnia Not on any home medications Follow up with PCP on discharge Psoriasis Follow up with PCP on discharge PUD prophylaxis: protonix 40mg DVT prophylaxis:Ambulatory. Barriers to discharge: Medical diagnosis and management in progress. Patient lives with family. Independent for ADL. PCP: Specialist Relevent To Admission: none Case discussed with Dr. Gary. Code Status: Full Code. Complex patient care discussion needed. Spend total 35 minutes for bedside assessment, case discussion and management. Plan discussed with: Patient My Orders Orders - ERIC NAILS Procedure Category Date Status Time Admit ADMIT 05/16/25 Transmitted 05:22 Allergies LISA 05/16/25 In Process 05:22 Code Status CODE 05/16/25 Transmitted 05:22 Complete Blood Count LAB 05/16/25 Logged 05:22 Comprehensive LAB 05/16/25 Logged Metabolic Panel 05:22 Condition: Fair LISA 05/16/25 In Process 05:[address] 05/16/25 Logged 05:24 Levetiracetam (Keppra) LAB 05/16/25 Logged 05:24 Levetiracetam 500 PHA 05/16/25 In Process Mg/100ml (Levetiraceta 10:00 Seizure Precautions ED NURSING 05/16/25 Transmitted Lorazepam 2mg/Ml Inj PHA 05/16/25 In Process (Ativan Inj) 05:30 Sodium Chloride 0.9% PHA 05/16/25 In Process 05:30 Ondansetron Hcl PHA 05/16/25 In Process (Zofran) 05:30 Acetaminophen Tablet PHA 05/16/25 In Process (Tylenol Tablet) 07:00 Folic Acid... PHA 05/16/25 In Process 05:30 Thyroid Stimulating LAB 05/16/25 Logged Hormone 05:24 Folate (Folic Acid) LAB 05/16/25 Logged 05:24 Vitamin D, 25-Hydroxy LAB 05/16/25 Logged 05:24 Pantoprazole PHA 05/16/25 Logged (Protonix) 10:00 Visit Coding STANDARD RES Billing Provider: KERVIN GARY MD Date of Service if different f: May 16, 2025 Common Visit Codes: [id number] INP/OBS CARE (HIGH) Secondary Visit Codes: [id number] CARE PLAN 30 MINUTES ERIC NAILS RESIDENT May 16, 2025 06:06
[2025-05-16 06:45] LABS: Hematocrit 37.0 % (36.0-46.0); Hemoglobin 12.5 g/dL (12.2-16.2); Mean Corpuscular Hemoglobin 30.8 pg (28.0-32.0); Mean Corpuscular Volume 90.9 fL (80.0-100.0); Nucleated Red Blood Cells % 0.0 %
--- NOTE | 2025-05-16 06:51 | DVH ---
EXAM: CT HEAD WITHOUT CONTRAST INDICATION: Seizure TECHNIQUE: CT of the head without intravenous contrast. Radiation Dose : 1. Head: CT Dose: CTDI volume is 58.45 mGy. Dose-length product is 2301.83 mGy*cm The dose indicators for CT are the volume Computed Tomography (CT) Dose Index (CTDIvol) and the Dose Length Product (DLP), and are measured in units of mGy and mGy-cm, respectively. These indicators are not patient dose, but values generated from the CT scanner acquisition factors. The report includes radiation exposure data for exposures received during this examination. COMPARISON: CT HEAD WITHOUT CONTRAST on DOS: 04/14/25 FINDINGS: There is no evidence of acute intracranial hemorrhage, extra-axial collection, mass effect, midline shift, herniation or hydrocephalus. The ventricles, sulci and cisterns are age appropriate. The morrison-white differentiation is intact. Pansinusitis. The mastoid air cells are clear. The surrounding soft tissues and osseous structures are unremarkable. IMPRESSION: 1. No acute intracranial abnormality. Radiation optimization: All CT scans at this facility use at least one of these dose optimization techniques: automated exposure control mA and/or kV adjustment per patient size (includes targeted exams where dose is matched to clinical indication) or iterative reconstruction.
[2025-05-16 07:04] LABS: Carbon Dioxide 29 mmol/L (20-31)
[2025-05-16 07:05] LABS: Albumin 4.2 g/dL (3.2-4.8); Anion Gap 10 (5-15); BUN/Creatinine Ratio 8.6 (10.0-20.0); Bilirubin, Total 0.3 mg/dL (0.2-1.0); Glucose 81 mg/dL (74-106); Potassium 4.0 mmol/L (3.5-5.1); Total Protein 6.9 g/dL (5.7-8.2)
[2025-05-16 07:15] LABS: Alanine Aminotransferase < 9 U/L (7-40); Alkaline Phosphatase 43 U/L (46-116); Blood Urea Nitrogen 5 mg/dL (9-23); Calcium 8.1 mg/dL (8.7-10.4); Chloride 113 mmol/L (98-107); Sodium 152 mmol/L (136-145)
[2025-05-16] MEDS: FOLIC ACID 1 MG in D5W 5% 50 ML INJ ONE (08:19)
[2025-05-16] MEDS: LORazepam 2MG/ML-1ML VIAL IV PRN ×2 (08:19→16:55)
[2025-05-16] MEDS: ACETAMINOPHEN 325 MG TAB PO SCH (08:21)
[2025-05-16] MEDS: FOLIC ACID 1 MG, MAGNESIUM SULF SDV 50% 8 MEQ, MULTIPLE VITAMIN 10 ML, THIAMINE INJ 100... INJ ONE (08:26)
[2025-05-16] MEDS: THIAMINE 100mg/ml INJ (200mg/2ml VIAL) IV SCH (09:15)
[2025-05-16] MEDS: ONDANSETRON HCL 4 MG/2 ML VIAL IV PRN (09:18)
[2025-05-16 10:21] LABS: INR 1.11 (0.9-1.15); Partial Thromboplastin Time 28.1 SEC (24.5-34.5); Prothrombin Time 11.6 sec (9.3-11.8)
[2025-05-16] MEDS: levETIRAcetam 500 mg/100ml 100 ML IV SCH (11:00)
[2025-05-16] MEDS: PANTOPRAZOLE 40 MG/10 ML VIAL INJ IV SCH (11:00)
[2025-05-16] MEDS: SOD CHL 0.45% 1,000 ML IV ONE (11:00)
[2025-05-16] MEDS ORDERED: MORPHINE SULFATE INJ 2 MG/ml SYRG IV PRN (11:45)
[2025-05-16 12:15] VITALS: PULSE 77; RESP 11; O2SAT 95
[2025-05-16] MEDS: HYDROmorphone HCL 2 MG/ML VL/or syr IV ONE (12:22)
[2025-05-16 14:12] LABS: Benzodiazephine Screen, Urine Pos (NEGATIVE)
[2025-05-16 14:42] LABS: Amphetamine Screen, Urine Neg (NEGATIVE); Barbiturate Scree,Urine Neg (NEGATIVE); Cannabinoid Screen, Urine Neg (NEGATIVE); Cocaine Screen, Urine Neg (NEGATIVE); Opiate Scree,Urine Neg (NEGATIVE); Phencyclidine Screen, Urine Neg (NEGATIVE)
--- NOTE | 2025-05-16 15:54 | DVHPNRES ---
Progress Note Date Seen: May 16, 2025 Resident Creating Document: TORI CARPIO RESIDENT Medical Necessity Reason Pt with a Central, PICC or Fol: No Subjective Review of Systems Lupe Santacruz is a 35-year-old female with past medical history of seizures, alcohol abuse disorder, insomnia, bipolar disorder, autism, psoriasis, recurrent visit to ER, kim who presented to the hospital with complaints of multiple seizure episodes since yesterday. Patient states that she has been under stress in the past few days due to of her best friend. She has been drinking alcohol heavily yesterday and had multiple episodes of seizures. Patient states that she is on Keppra but her seizures are not controlled, having around 3 seizures a day. she was scheduled to undergo EEG by her neurologist Dr. Talley on Tuesday, but missed the appointment. She reports of tongue biting and confusion after the Seizure episode. she reports her last drink was 9 hours back. Serum alcohol 316, UDS positive for benzodiazepine. CXR no acute abnormality, CT head no acute abnormality. PMH-alcohol abuse disorder, seizures, insomnia, bipolar disorder, autism, psoriasis, PSH- Valvular heart repair Family history: history of seizures in sister Allergy-NKDA Personal History/ Social History- heavy alcohol user, smoker 15 pack year smoking history, lives with the ROS Cardiovascular- deny acute chest pain or shortness of breath or cough or palpitation Respiratory denies cough or short of breath or wheezing Gastrointestinal- denies any rectal bleeding, nausea or vomiting Musculoskeletal-denies acute joint swelling or tenderness or redness Neurology seizure Psychiatry- denies depression or SI or HI Skin- denies acute rash or purpura Patient is seen today at bedside Labs and chart reviewed Patient was put on CIWA protocol Continue IV fluid On IV Keppra for seizure Pending serum Keppra level Objective vital signs Vital Sign Date Time Temp Pulse Resp B/P (MAP) Pulse Ox O2 Delivery O2 Flow Rate FiO2 05/16/25 14:15 82 11 107/77 (87) 95 05/16/25 12:15 Room Air* 0 21 05/16/25 05:00 98.4 98.4 Total Intake and Output 05/15/25 05/15/25 05/16/25 15:00 23:00 07:00 Intake Total 1100 ml Balance 1100 ml medications Current Medications Medications Dose Ordered Sig/Josephine Route Start Time Stop Time Status Last Admin Dose Admin Levetiracetam 100 ml @ 400 mls/hr BID IV 05/16/25 10:00 05/16/25 11:00 400 MLS/HR Lorazepam 1 mg Q5MINP PRN IV 05/16/25 05:30 Ondansetron HCl 4 mg Q8HPRN PRN IV 05/16/25 05:30 05/16/25 09:18 4 MG Acetaminophen 650 mg Q6HR PO 05/16/25 07:00 05/16/25 08:21 650 MG Pantoprazole Sodium 40 mg DAILY IV 05/16/25 10:00 05/16/25 11:00 40 MG Lorazepam 1 mg Q2HPRN PRN IV 05/16/25 09:00 Thiamine HCl 100 mg DAILY IV 05/16/25 09:15 05/16/25 10:00 100 MG Folic Acid 1 mg/ Dextrose 50.2 ml @ 200.8 mls/ hr DAILY INJ 05/17/25 10:00 Morphine Sulfate 1 mg Q6HP PRN IV 05/16/25 11:45 Examination General examination- awake, alert, HEENT- PEERLA, no acute nasal discharge Cardiovascular- S1-S2 audible, rate and rhythm regular, no murmur Respiratory- CTAB, no wheeze or rhonchi Gastrointestinal-nontender, bowel sound+. Nondistended Musculoskeletal-no acute joint swelling or tenderness or redness Lower extremity- no leg edema Neurological- cranial nerves intact, no acute dysarthria or dysphagia Psychiatry- denies depression or SI or HI Skin- no acute rash or purpura laboratory and microbiology Laboratory Tests 05/16/25 12:03 05/16/25 06:10 Test 05/16/25 06:10 Range/Units Serum Glucose 81 74-106 mg/dL Problem List/Assessment/Plan Problem List/Assessment/Plan Assessment and plan # toxic/metabolic encephalopathy # acute alcohol intoxication # alcohol withdrawal seizure # breakthrough seizure due to alcohol withdrawal -continue on CIWA protocol -on thiamine and folic acid -on IV banana bag Monitor vitals Continue IV fluid # breakthrough seizure -CT head negative -pending serum Keppra level Continue Keppra as prescribed -resume home medication lamotrigine -ordered neurology consult # hyponatremia -continue IV fluid as prescribed -monitor BMP # bipolar disorder # insomnia # autism -resume home medication lamotrigine # psoriasis -follow up outpatient with the dermatology Goals of care, Code status full code ; discussed with >15 minutes PUD prophylaxis: Pantoprazole DVT prophylaxis: No acute indication Plan discussed with Dr. jesus , nursing staff, Total time spent on patient evaluation, chart review, assessment and plan, discussion discussion >35 minutes Plan discussed with: Patient, Other (RN) My Orders My Orders Orders - TORI CARPIO Procedure Category Date Status Time Lorazepam 2mg/Ml Inj PHA 05/16/25 In Process (Ativan Inj) 09:00 Etoh Withdrawal LISA 05/16/25 In Process Assessment 09:00 Etoh Withdrawal LISA 05/16/25 In Process Assessment 09:00 Thiamine Inj PHA 05/16/25 In Process 09:15 Sod Chl 0.45% (Sodium PHA 05/16/25 In Process Chloride 0.45% Via 09:15 Folic Acid PHA 05/17/25 In Process 10:00 Morphine Sulfate PHA 05/16/25 In Process Injection 11:45 Complete Blood Count LAB 05/17/25 Verified 04:00 Basic Metabolic Panel LAB 05/17/25 Verified 04:00 Magnesium LAB 05/17/25 Verified 04:00 Visit Coding STANDARD RES Billing Provider: JULIETTE DEVLIN MD Date of Service if different f: May 16, 2025 Common Visit Codes: [id number] INP/OBS CARE(HIGH) TORI CARPIO May 16, 2025 15:54
[2025-05-16] MEDS: lamoTRIgine 100 MG TAB PO SCH (16:00)
[2025-05-16 17:00] VITALS: BP 101/72; PULSE 78; RESP 18; TEMP 98.2; O2SAT 97
[2025-05-16] MEDS: MORPHINE SULFATE 4 MG/ML SYR/VIAL IV PRN (18:00)
[2025-05-16 20:00] VITALS: RESP 16
[2025-05-16] MEDS ORDERED: LEVE500T40 PO (20:35)
[2025-05-16] MEDS ORDERED: ALPR2TAB6 PO (20:37)
[2025-05-16] MEDS ORDERED: CLON-1004 PO (20:38)
[2025-05-16] MEDS ORDERED: LAMO25TA2 PO (20:42)
[2025-05-16] MEDS ORDERED: CLON0.1T PO (20:45)
[2025-05-16 21:00] VITALS: BP 112/64; PULSE 86; RESP 17; TEMP 97.8; O2SAT 99
[2025-05-16] MEDS: TEMAZEPAM 15 MG CAP PO ONE (21:30)
[2025-05-17] VITALS (8 sets, daily range): BP systolic 100–130; BP diastolic 67–90; PULSE 64–84; RESP 16–20; TEMP 97.6–98.3; O2SAT 92–99
[2025-05-17 03:07] LABS: COVID19 ANTIGEN SOFIA FIA NEGATIVE (NEGATIVE)
[2025-05-17] MEDS: LORazepam 2MG/ML-1ML VIAL IV PRN (03:16)
[2025-05-17 05:55] LABS: Hematocrit 36.7 % (36.0-46.0); Hemoglobin 12.3 g/dL (12.2-16.2); Mean Corpuscular Hemoglobin 30.4 pg (28.0-32.0); Mean Corpuscular Volume 90.7 fL (80.0-100.0); Nucleated Red Blood Cells % 0.1 %
[2025-05-17 06:18] LABS: Anion Gap 9 (5-15); Calcium 8.8 mg/dL (8.7-10.4); Carbon Dioxide 26 mmol/L (20-31); Chloride 107 mmol/L (98-107); Sodium 142 mmol/L (136-145)
[2025-05-17 06:23] LABS: Glucose 97 mg/dL (74-106)
[2025-05-17 06:24] LABS: BUN/Creatinine Ratio 12.9 (10.0-20.0); Magnesium 1.8 mg/dL (1.6-2.6)
[2025-05-17 06:32] LABS: Blood Urea Nitrogen 8 mg/dL (9-23); Potassium 3.4 mmol/L (3.5-5.1)
[2025-05-17] MEDS: POTASSIUM CHL 20 Meq TABLET PO ONE (07:30)
[2025-05-17] MEDS: POTASSIUM CHL 20MEQ/100ML 100 ML IV ONE (07:30)
[2025-05-17] MEDS: MAGNESIUM SULFATE 1GM/100ML 100 ML IV ONE ×2 (07:30→08:00)
[2025-05-17] MEDS: FOLIC ACID 1 MG in D5W 5% 50 ML INJ SCH (10:00)
--- NOTE | 2025-05-17 14:58 | DVHPNRES ---
Progress Note Date Seen: May 17, 2025 Resident Creating Document: TORI CARPIO RESIDENT Medical Necessity Reason Pt with a Central, PICC or Fol: No Subjective Review of Systems Lupe Santacruz is a 35-year-old female with past medical history of seizures, alcohol abuse disorder, insomnia, bipolar disorder, autism, psoriasis, recurrent visit to ER, kim who presented to the hospital with complaints of multiple seizure episodes since yesterday. Patient states that she has been under stress in the past few days due to of her best friend. She has been drinking alcohol heavily yesterday and had multiple episodes of seizures. Patient states that she is on Keppra but her seizures are not controlled, having around 3 seizures a day. she was scheduled to undergo EEG by her neurologist Dr. Talley on Tuesday, but missed the appointment. She reports of tongue biting and confusion after the Seizure episode. she reports her last drink was 9 hours back. Serum alcohol 316, UDS positive for benzodiazepine. CXR no acute abnormality, CT head no acute abnormality. PMH-alcohol abuse disorder, seizures, insomnia, bipolar disorder, autism, psoriasis, PSH- Valvular heart repair Family history: history of seizures in sister Allergy-NKDA Personal History/ Social History- heavy alcohol user, smoker 15 pack year smoking history, lives with the ROS Cardiovascular- deny acute chest pain or shortness of breath or cough or palpitation Respiratory denies cough or short of breath or wheezing Gastrointestinal- denies any rectal bleeding, nausea or vomiting Musculoskeletal-denies acute joint swelling or tenderness or redness Neurology seizure Psychiatry- denies depression or SI or HI Skin- denies acute rash or purpura Patient is seen today at bedside Labs and chart reviewed Patient had to seizure early in the morning as per nursing staff documentation Pending neurology consult We will continue current medication Objective vital signs Vital Sign Date Time Temp Pulse Resp B/P (MAP) Pulse Ox O2 Delivery O2 Flow Rate FiO2 05/17/25 13:19 98.1 64 20 101/67 (78) 97 98.1 05/17/25 08:00 Room Air* 0 21 Total Intake and Output 05/16/25 05/16/25 05/17/25 14:59 22:59 06:59 Intake Total 2157.482 ml 0 ml 600 ml Balance 2157.482 ml 0 ml 600 ml medications Current Medications Medications Dose Ordered Sig/Josephine Route Start Time Stop Time Status Last Admin Dose Admin Levetiracetam 100 ml @ 400 mls/hr BID IV 05/16/25 10:00 05/17/25 10:07 400 MLS/HR Lorazepam 1 mg Q5MINP PRN IV 05/16/25 05:30 05/16/25 08:19 1 MG Ondansetron HCl 4 mg Q8HPRN PRN IV 05/16/25 05:30 05/17/25 09:46 4 MG Acetaminophen 650 mg Q6HR PO 05/16/25 07:00 05/17/25 03:36 650 MG Pantoprazole Sodium 40 mg DAILY IV 05/16/25 10:00 05/17/25 10:08 40 MG Lorazepam 1 mg Q2HPRN PRN IV 05/16/25 09:00 05/17/25 03:16 1 MG Thiamine HCl 100 mg DAILY IV 05/16/25 09:15 05/17/25 10:00 100 MG Folic Acid 1 mg/ Dextrose 50.2 ml @ 200.8 mls/ hr DAILY INJ 05/17/25 10:00 05/17/25 10:00 200.8 MLS/HR Lorazepam 1 mg Q4HP PRN IV 05/16/25 16:00 05/17/25 00:56 1 MG Lamotrigine 100 mg DAILY PO 05/16/25 16:00 Morphine Sulfate 1 mg Q6HPRN PRN IV 05/16/25 17:45 05/17/25 00:04 1 MG Examination General examination- awake, alert, HEENT- PEERLA, no acute nasal discharge Cardiovascular- S1-S2 audible, rate and rhythm regular, no murmur Respiratory- CTAB, no wheeze or rhonchi Gastrointestinal-nontender, bowel sound+. Nondistended Musculoskeletal-no acute joint swelling or tenderness or redness Lower extremity- no leg edema Neurological- cranial nerves intact, no acute dysarthria or dysphagia Psychiatry- denies depression or SI or HI Skin- no acute rash or purpura laboratory and microbiology Laboratory Tests 05/17/25 05:20 Test 05/17/25 05:20 Range/Units Serum Glucose 97 74-106 mg/dL Problem List/Assessment/Plan Problem List/Assessment/Plan Assessment and plan # toxic/metabolic encephalopathy # acute alcohol intoxication # alcohol withdrawal seizure # breakthrough seizure due to alcohol withdrawal -continue on CIWA protocol -on thiamine and folic acid -on IV banana bag Monitor vitals Continue IV fluid # breakthrough seizure -CT head negative -pending serum Keppra level and lamotrigine levels Continue Keppra and lamotrigine as prescribed -resume home medication lamotrigine -ordered neurology consult # hyponatremia -continue IV fluid as prescribed -monitor BMP # bipolar disorder # insomnia # autism -resume home medication lamotrigine # psoriasis -follow up outpatient with the dermatology Goals of care, Code status full code ; discussed with >15 minutes PUD prophylaxis: Pantoprazole DVT prophylaxis: No acute indication Plan discussed with Dr. Crump , nursing staff, Total time spent on patient evaluation, chart review, assessment and plan, discussion discussion >35 minutes Plan discussed with: Patient, Other (RN) My Orders My Orders Orders - TORI CARPIO Procedure Category Date Status Time Lamotrigine Tablet PHA 05/16/25 In Process (Lamictal Tablet) 16:00 Lamotrigine (Lamictal) LAB 05/16/25 In Process 15:51 Visit Coding STANDARD RES Billing Provider: JULIETTE DEVLIN MD Date of Service if different f: May 17, 2025 Common Visit Codes: [id number] INP/OBS CARE(HIGH) TORI CARPIO May 17, 2025 14:58
--- NOTE | 2025-05-17 15:58 | DVHINCON2 ---
Date of service: May 17, [address] Roach Reason for Consultation Seizures and alcohol use History of Present Illness Ms. Santacruz is a 34 years old right-handed female with a history of bipolar disorder, autism, congenital heart disease, she was brought to the [facility] on 03/16/2025 with a chief complaint of seizure activity. At this time, she is alert and fully oriented, I have also interviewed her through the telephone. I saw her on 12/30/2024, 01/25/2025, 02/06/2025, 03/11/2025 for seizure She came to the [facility] ER frequently for seizure activity She does not remember, but she had seizure at home and came to the hospital. She has been under lot of stress recently According to her , the patient has grand mal seizure activity about once weekly She reports that she only drinks alcohol 3 times monthly, She reports her seizure activity is not necessarily related to her alcohol consumption On 01/24/2025, she had a 5-10 minutes' seizure in [facility] (confirmed by Alejandra, her nurse), and she reported having islands of memory about seizure where her body was supra extended, with head extending into her back She does not know how long she has had seizure disorder She is on Keppra 500 mg b.i.d., she reports good compliance Keppra, 01/22/2025: 6.2 UDS, 12/30/2024: Unremarkable, 01/22/2025: Benzo, 02/06/2025: Benzo, 07/24: Benzo diazepam, 05/16/2025: Benzo Plasma alcohol, 12/29/2024: 299.3, 01/22/2025: 217.8, 02/06/2025: 243.6, 03/10/2025: 281.5, 04/04/2025: 304.3, 04/06/2025: 264.7, 04/11/2025: 279.2, 04/14/2025: 218, 04/29/2025: 332.7, 05/02/2025: 279.5, 05/06/2025: 284, 05/16/24: 316.6 CBC, 02/06/2025: Unremarkable 03/11/2025: Unremarkable, 05/07/2025: Unremarkable Na 05/16/2025: 152, 148, 05/17/25: 142 Lactic acid, 05/06/2025: 5.5, 2.7, 5:1.8 Liver function tests, 05/16/25: Unremarkable Vitamin B12, 01/23/2025: 372 Folic acid, 01/23/2025: 16.55 TSH, 01/23/2025: 1.4 CT head, 12/29/2024: 1. No acute territorial infarct, intracranial hemorrhage, or mass effect. 2. Paranasal sinus disease as detailed, incompletely assessed. 3. If clinical symptoms persist, MRI may be beneficial in further evaluation CT head, 03/10/2025: 1. No CT evidence of acute intracranial abnormality. 2. Paranasal sinusitis Past Medical History Bipolar disorder, autism, congenital valvular heart disease Past Surgical History Congenital valvular disease repair Family History: Ischemic heart disease G8 MOTHER G8 FATHER Prostate carcinoma G8 FATHER Thyroid disease G8 MOTHER Family History Diabetes, heart disease, cancer, depression, alcoholism Social History She smokes tobacco, she drinks once or twice weekly, 6-7 drinks each time, no history of drug abuse. She is not licensed to drive Allergies: Coded Allergies: NO KNOWN ALLERGIES (Unverified , 06/19/16) Home Meds Active Scripts Ibuprofen (Ibuprofen) 600 Mg Tab, 1 TAB PO TID PRN for 5 Days, #15 TAB Prov:NANCY GEE MD 04/07/25 Acetaminophen (Acetaminophen Er) 650 Mg Tab, 650 MG PO TIDPRN PRN, #15 TAB Prov:NANCY GEE MD 04/07/25 Ondansetron Odt 4MG Tab (ZOFRAN PO) 4 Mg Tb, 4 MG PO BID for 5 Days, #10 TAB ODT TAB-DISSOLVE IN MOUTH, THEN SWALLOW Prov:KELSEY BERNARD RESIDENT 01/26/25 Reported Medications Clonidine Hydrochloride (Clonidine Hcl) 0.1 Mg Tab, 0.1 MG PO DAILY, TAB 05/16/25 Lamotrigine (Lamictal) 25 Mg Tab, 25 MG PO DAILY, TAB 05/16/25 Alprazolam (Alprazolam) 2 Mg Tab, 2 MG PO PRN, #30 TAB 05/16/25 Levetiracetam (Keppra) 500 Mg Tab, 500 MG PO BID, TAB 05/16/25 Current Medications Current Medications Medications (Trade) Dose Ordered Sig/Josephine Route PRN Reason Start Time Stop Time Status Last Admin Folic Acid 1 mg/ Dextrose 50.2 ml @ 200.8 mls/ hr DAILY INJ 05/17/25 10:00 05/17/25 10:00 Lorazepam (Ativan Inj) 1 mg Q4HP PRN IV ANXIETY 05/16/25 16:00 05/17/25 00:56 Lamotrigine (LaMICtal TABLET) 100 mg DAILY PO 05/16/25 16:00 Morphine Sulfate 1 mg Q6HPRN PRN IV SEVERE PAIN (7-10 PAIN SCALE) 05/16/25 17:45 05/17/25 00:04 Vital Signs Vital Signs Date Time Temp Pulse Resp B/P (MAP) Pulse Ox O2 Delivery O2 Flow Rate FiO2 05/17/25 13:19 98.1 64 20 101/67 (78) 97 98.1 05/17/25 08:00 Room Air* 0 21 Physical Exam GENERAL EXAM: General: the patient is well developed and nourished. No acute distress. HEENT: Normocephalic, neck is supple, no carotid bruits. No mass. RESPIRATORY: Normal respiratory effort with symmetrical lung expansion. Lungs clear to auscultation. CARDIOVASCULAR: Regular rate and rhythm with no murmurs. S1, S2. ABDOMEN: Soft, nontender, normal bowel sound NEUROLOGICAL: MENTAL STATUS: Awake and alert. Oriented to person, place, time and general circumstances. Able to give personal history. SPEECH, LANGUAGE, HIGHER CORTICAL FUNCTION: no aphasia or dysathria. CRANIAL NERVES: #2: Intact visual morgan to confrontation. The optic discs were sharp #3,4,6: Pupils are equal, round and reactive. EOMs full and conjugate. Mild bilateral gaze evoked nystagmus. #5: Facial sensation intact in all three divisions bilaterally. Mandibular strength intact. #7: Facial muscles symmetrical and strength intact. #8: Hearing grossly normal to voice. #9,10: Uvula and soft palate rise in the midline. Swallow and voice are normal. #11: Trapezius and sternomastoid strength intact bilaterally. #12: Tongue midline. No fasciculations or atrophy. SENSATION: Sensation to touch and pinprick is normal. MOTOR: Normal tone in the upper and lower extremity. Normal muscle bulk. No fasciculations. No abnormal movements or posturing. Muscle strength of the major groups in the upper extremities is 5/5. Muscle strength of the major groups in the lower extremities is 5/5. REFLEXES: Deep tendon reflexes normal and symmetrical. No pathological reflexes. CEREBELLAR/COORDINATION: Finger to nose and heel to ta are normal bilaterally. GAIT/STATION: deferred. Labs/Diagnostic Data Labs Test 05/17/25 05:20 05/17/25 00:40 05/16/25 16:24 05/16/25 14:41 Range/Units White Blood Count 7.1 4.4-10.8 10^3/uL Red Blood Count 4.04 4.0-5.20 10^6/uL Hemoglobin 12.3 12.2-16.2 g/dL Hematocrit 36.7 36.0-46.0 % Mean Corpuscular Volume 90.7 80.0-100.0 fL Mean Corpuscular Hemoglobin 30.4 28.0-32.0 pg Mean Corpuscular Hemoglobin Concent 33.5 32.0-36.0 g/dL Red Cell Distribution Width 13.7 11.8-14.3 % Platelet Count 285 140-450 10^3/uL Mean Platelet Volume 7.2 6.9-10.8 fL Neutrophils (%) (Auto) 48.8 37.0-80.0 % Lymphocytes (%) (Auto) 37.9 10.0-50.0 % Monocytes (%) (Auto) 6.6 0.0-12.0 % Eosinophils (%) (Auto) 5.8 0.0-7.0 % Basophils (%) (Auto) 0.9 0.0-2.0 % Neutrophils # (Auto) 3.5 1.6-8.6 10 ^3/uL Lymphocytes # (Auto) 2.7 0.4-5.4 10 ^3/uL Monocytes # (Auto) 0.5 0-1.3 10 ^3/uL Eosinophils # (Auto) 0.4 0-0.8 10 ^3/uL Basophils # (Auto) 0.1 0-0.2 10 ^3/uL Nucleated Red Blood Cells 0.1 % Sodium Level 142 # 136-145 mmol/L Potassium Level 3.4 L 3.5-5.1 mmol/L Chloride Level 107 98-107 mmol/L Carbon Dioxide Level 26 20-31 mmol/L Anion Gap 9 5-15 Blood Urea Nitrogen 8 L 9-23 mg/dL Creatinine 0.62 0.550-1.02 mg/dL Glomerular Filtration Rate Calc 119 >90 mL/min BUN/Creatinine Ratio 12.9 10.0-20.0 Serum Glucose 97 74-106 mg/dL Calcium Level 8.8 8.7-10.4 mg/dL Magnesium Level 1.8 1.6-2.6 mg/dL Influenza Type A Antigen Negative Negative Influenza Type B Antigen Negative Negative SARS-CoV-2 Antigen (Rapid) Negative NEGATIVE Urine Opiates Screen Neg NEGATIVE Urine Fentanyl Screen Neg NEGATIVE Urine Barbiturates Screen Neg NEGATIVE Urine Phencyclidine Screen Neg NEGATIVE Urine Amphetamines Screen Neg NEGATIVE Urine Benzodiazepines Screen Pos NEGATIVE Urine Cocaine Screen Neg NEGATIVE Urine Cannabinoids Screen Neg NEGATIVE Test 05/16/25 09:51 05/16/25 06:10 05/16/25 01:27 05/16/25 00:57 Range/Units Lactic Acid Level 1.8 0.4-2.0 mmol/L Prothrombin Time 11.6 9.3-11.8 sec Prothrombin Time INR 1.11 0.9-1.15 Activated Partial Thromboplast Time 28.1 24.5-34.5 SEC Hemoglobin A1c 4.5 <5.7 % A1C Total Bilirubin 0.3 0.2-1.0 mg/dL Aspartate Amino Transferase (AST) 9 L 13-40 U/L Alanine Aminotransferase (ALT) < 9 7-40 U/L Alkaline Phosphatase 43 L 46-116 U/L Creatine Kinase 42 34-145 U/L Total Protein 6.9 5.7-8.2 g/dL Albumin 4.2 3.2-4.8 g/dL Vitamin B12 Level 457 211-911 pg/mL Vitamin D 25-Hydroxy 33.8 30.0-100 ng/mL Folic Acid 9.18 >5.38 ng/mL Thyroid Stimulating Hormone (TSH) 1.63 0.55-4.78 uIU/mL Troponin I High Sensitivity < 3 L </=34 ng/L Plasma/Serum Blood Alcohol 316.6 H <10 mg/dL Urine Color Colorless Yellow Urine Clarity Clear Clear Urine pH 5.0 5.0-9.0 Urine Specific [place] 1.003 1.001-1.035 Urine Protein Negative Negative Urine Ketones Negative Negative Urine Blood Negative Negative /uL Urine Nitrite Negative Negative Urine Bilirubin Negative Negative Urine Urobilinogen Normal Negative mg/dL Urine Leukocyte Esterase Negative Negative /uL Urine RBC 1 0 - 4 /hpf Urine Microscopic WBC < 1 0-5 /HPF Urine Squamous Epithelial Cells None seen <5 /hpf Urine Bacteria None seen None Seen /hpf Urine Glucose Normal Normal mg/dL Assessment Status epileptics, Grand mal seizure, Epileptic Psychogenic seizures, some of her seizure maybe psychogenic Alcohol withdrawal seizure, some her seizure maybe alcohol withdrawal seizure Excessive alcohol consumption Plan/Recommendation Monitoring Supportive treatment Telemetry Keppra 750 mg b.i.d. Ativan for seizure breakthrough Thiamine supplementation Folic acid supplementation Quit alcohol consumption She is not licensed to drive More recommendation per clinical course Follow up with her doctors on discharge Prognosis: Poor This medical document was created using an electronic medical record system with [employer] dictation system. Although this document has been carefully reviewed, there may still be some phonetic and typographical errors. These are as are purely typographical due to imperfections of the software programs, and do not reflect any compromise in the patient's medical care. Plan discussed with: Patient, Spouse, Other CALEB BOLIVAR MD May 17, 2025 15:58
[2025-05-17] MEDS: levETIRAcetam 500 MG TAB PO SCH (22:07)
[2025-05-18] VITALS (9 sets, daily range): BP systolic 98–133; BP diastolic 67–89; PULSE 60–96; RESP 16–24; TEMP 97.2–98.3; O2SAT 97–98
[2025-05-18] MEDS: TEMAZEPAM 15 MG CAP PO ONE (00:52)
[2025-05-18] MEDS: MORPHINE SULFATE 4 MG/ML SYR/VIAL IV ONE (03:50)
[2025-05-18 07:03] LABS: Anion Gap 11 (5-15); Carbon Dioxide 24 mmol/L (20-31); Chloride 106 mmol/L (98-107); Potassium 4.0 mmol/L (3.5-5.1); Sodium 141 mmol/L (136-145)
[2025-05-18 07:05] LABS: Calcium 9.1 mg/dL (8.7-10.4)
[2025-05-18 07:09] LABS: BUN/Creatinine Ratio 7.6 (10.0-20.0); Glucose 81 mg/dL (74-106)
[2025-05-18 07:10] LABS: Blood Urea Nitrogen 5 mg/dL (9-23)
[2025-05-18] MEDS: THIAMINE HCL 100 MG TAB PO SCH (09:44)
[2025-05-18] MEDS: FOLIC ACID 1 MG TAB PO SCH (09:45)
[2025-05-18] MEDS ORDERED: LEVE500T40 PO (15:40)
--- NOTE | 2025-05-18 16:02 | DVHDSRES ---
Discharge Summary Date of Admission Resident Creating Document: TORI CARPIO RESIDENT May 16, 2025 at 05:22 Date of Discharge: May 18, 2025 Admitting Diagnosis Breakthrough seizure Labs/Diagnostic Data: Laboratory Results Test 05/18/25 04:36 05/17/25 05:20 05/17/25 00:40 05/16/25 16:24 Sodium Level 141 mmol/L (136-145) Potassium Level 4.0 mmol/L (3.5-5.1) Chloride Level 106 mmol/L (98-107) Carbon Dioxide Level 24 mmol/L (20-31) Anion Gap 11 (5-15) Blood Urea Nitrogen 5 mg/dL (9-23) Creatinine 0.66 mg/dL (0.550-1.02) Glomerular Filtration Rate Calc 117 mL/min (>90) BUN/Creatinine Ratio 7.6 (10.0-20.0) Serum Glucose 81 mg/dL (74-106) Calcium Level 9.1 mg/dL (8.7-10.4) White Blood Count 7.1 10^3/uL (4.4-10.8) Red Blood Count 4.04 10^6/uL (4.0-5.20) Hemoglobin 12.3 g/dL (12.2-16.2) Hematocrit 36.7 % (36.0-46.0) Mean Corpuscular Volume 90.7 fL (80.0-100.0) Mean Corpuscular Hemoglobin 30.4 pg (28.0-32.0) Mean Corpuscular Hemoglobin Concent 33.5 g/dL (32.0-36.0) Red Cell Distribution Width 13.7 % (11.8-14.3) Platelet Count 285 10^3/uL (140-450) Mean Platelet Volume 7.2 fL (6.9-10.8) Neutrophils (%) (Auto) 48.8 % (37.0-80.0) Lymphocytes (%) (Auto) 37.9 % (10.0-50.0) Monocytes (%) (Auto) 6.6 % (0.0-12.0) Eosinophils (%) (Auto) 5.8 % (0.0-7.0) Basophils (%) (Auto) 0.9 % (0.0-2.0) Neutrophils # (Auto) 3.5 10 ^3/uL (1.6-8.6) Lymphocytes # (Auto) 2.7 10 ^3/uL (0.4-5.4) Monocytes # (Auto) 0.5 10 ^3/uL (0-1.3) Eosinophils # (Auto) 0.4 10 ^3/uL (0-0.8) Basophils # (Auto) 0.1 10 ^3/uL (0-0.2) Nucleated Red Blood Cells 0.1 % Magnesium Level 1.8 mg/dL (1.6-2.6) Influenza Type A Antigen Negative (Negative) Influenza Type B Antigen Negative (Negative) SARS-CoV-2 Antigen (Rapid) Negative (NEGATIVE) Test 05/16/25 14:41 05/16/25 09:51 05/16/25 06:10 05/16/25 01:27 Urine Opiates Screen Neg (NEGATIVE) Urine Fentanyl Screen Neg (NEGATIVE) Urine Barbiturates Screen Neg (NEGATIVE) Urine Phencyclidine Screen Neg (NEGATIVE) Urine Amphetamines Screen Neg (NEGATIVE) Urine Benzodiazepines Screen Pos (NEGATIVE) Urine Cocaine Screen Neg (NEGATIVE) Urine Cannabinoids Screen Neg (NEGATIVE) Lactic Acid Level 1.8 mmol/L (0.4-2.0) Prothrombin Time 11.6 sec (9.3-11.8) Prothrombin Time INR 1.11 (0.9-1.15) Activated Partial Thromboplast Time 28.1 SEC (24.5-34.5) Hemoglobin A1c 4.5 % A1C (<5.7) Total Bilirubin 0.3 mg/dL (0.2-1.0) Aspartate Amino Transferase (AST) 9 U/L (13-40) Alanine Aminotransferase (ALT) < 9 U/L (7-40) Alkaline Phosphatase 43 U/L (46-116) Creatine Kinase 42 U/L (34-145) Total Protein 6.9 g/dL (5.7-8.2) Albumin 4.2 g/dL (3.2-4.8) Vitamin B12 Level 457 pg/mL (211-911) Vitamin D 25-Hydroxy 33.8 ng/mL (30.0-100) Folic Acid 9.18 ng/mL (>5.38) Thyroid Stimulating Hormone (TSH) 1.63 uIU/mL (0.55-4.78) Troponin I High Sensitivity < 3 ng/L (</=34) Plasma/Serum Blood Alcohol 316.6 mg/dL (<10) Test 05/16/25 00:57 Urine Color Colorless (Yellow) Urine Clarity Clear (Clear) Urine pH 5.0 (5.0-9.0) Urine Specific [place] 1.003 (1.001-1.035) Urine Protein Negative (Negative) Urine Ketones Negative (Negative) Urine Blood Negative /uL (Negative) Urine Nitrite Negative (Negative) Urine Bilirubin Negative (Negative) Urine Urobilinogen Normal mg/dL (Negative) Urine Leukocyte Esterase Negative /uL (Negative) Urine RBC 1 /hpf (0 - 4) Urine Microscopic WBC < 1 /HPF (0-5) Urine Squamous Epithelial Cells None seen /hpf (<5) Urine Bacteria None seen /hpf (None Seen) Urine Glucose Normal mg/dL (Normal) Other Laboratory Tests 05/18/25 04:36 05/17/25 05:20 Brief Hx & Hospital Course: Johny Santacruz is a 35-year-old female with past medical history of seizures, alcohol abuse disorder, insomnia, bipolar disorder, autism, psoriasis, recurrent visit to ER, kim who presented to the hospital with complaints of multiple seizure episodes since yesterday. Patient states that she has been under stress in the past few days due to of her best friend. She has been drinking alcohol heavily yesterday and had multiple episodes of seizures. Patient states that she is on Keppra but her seizures are not controlled, having around 3 seizures a day. she was scheduled to undergo EEG by her neurologist Dr. Talley on Tuesday, but missed the appointment. She reports of tongue biting and confusion after the Seizure episode. she reports her last drink was 9 hours back. Serum alcohol 316, UDS positive for benzodiazepine. CXR no acute abnormality, CT head no acute abnormality. Hospital course-during hospital course patient was treated conservatively, patient was seen by neurologist, patient's Keppra was increased from 500 to 750 mg p.o. b.i.d by neurologist., patient was noncompliant with the treatment during hospital. Patient was counseled about the importance of med compliance. Patient was also counseled about the effect of alcoholism on health. Patient was seizure-free for more than 12 hours, Patient is being discharged home in hemodynamically stable condition. All questions answered. Patient was advised to follow up with the PCP with a Keppra level for dose adjustment of Keppra. Patient was also advised to follow up at DC clinic/PCP/Neurology. General examination- awake, alert, HEENT- PEERLA, no acute nasal discharge Cardiovascular- S1-S2 audible, rate and rhythm regular, no murmur Respiratory- CTAB, no wheeze or rhonchi Gastrointestinal-nontender, bowel sound+. Nondistended Musculoskeletal-no acute joint swelling or tenderness or redness Lower extremity- no leg edema Neurological- cranial nerves intact, no acute dysarthria or dysphagia Psychiatry- denies depression or SI or HI Skin- no acute rash or purpura Assessment # toxic/metabolic encephalopathy # acute alcohol intoxication # alcohol withdrawal seizure # breakthrough seizure due to alcohol withdrawal # breakthrough seizure # hyponatremia # bipolar disorder # insomnia # autism # psoriasis # treatment noncompliant Plan Keppra 750 mg p.o. b.i.d. Resume other home medication Follow up PCP/DC clinic/neurology Please follow up with the PCP with a Keppra level for was adjustment of Keppra Counseled about the importance of med compliance, Counseled about the effect of alcohol abuse on health Plan Of care discussed with Dr. Crump Operations or Procedures [place] [id number] Ph: [phone] DIAGNOSTIC IMAGING Diagnostic Imaging Report : [id number] Signed PATIENT: JOHNY SANTACRUZ ACCT: [id number] UNIT: [id number] : 1990 LOC: OVERFLOW ROOM / BED: [facility]- / A AGE / SEX: 35 / F ADM STATUS: ADM IN SERVICE 0524 ORDERING PHYSICIAN: ERIC NAILS RESIDENT PROCEDURE(s): HWOCT - HEAD WITHOUT CONTRAST REASON: Seizure ORDER NUMBER(s): [id number], ACCESSION NUMBER(s): [id number] EXAM: CT HEAD WITHOUT CONTRAST INDICATION: Seizure TECHNIQUE: CT of the head without intravenous contrast. Radiation Dose : 1. Head: CT Dose: CTDI volume is 58.45 mGy. Dose-length product is 2301.83 mGy*cm The dose indicators for CT are the volume Computed Tomography (CT) Dose Index (CTDIvol) and the Dose Length Product (DLP), and are measured in units of mGy and mGy-cm, respectively. These indicators are not patient dose, but values generated from the CT scanner acquisition factors. The report includes radiation exposure data for exposures received during this examination. COMPARISON: CT HEAD WITHOUT CONTRAST on DOS: 04/14/25 FINDINGS: There is no evidence of acute intracranial hemorrhage, extra-axial collection, mass effect, midline shift, herniation or hydrocephalus. The ventricles, sulci and cisterns are age appropriate. The morrison-white differentiation is intact. Pansinusitis. The mastoid air cells are clear. The surrounding soft tissues and osseous structures are unremarkable. IMPRESSION: 1. No acute intracranial abnormality. Radiation optimization: All CT scans at this facility use at least one of these dose optimization techniques: automated exposure control mA and/or kV adjustment per patient size (includes targeted exams where dose is matched to clinical indication) or iterative reconstruction. ATED BY: VISH BANKS MD DICTATED DATE/TIME: 05/16/25648 SIGNED BY: VISH BANKS MD SIGNED DATE/TIME: 05/16/25648 CC: [place] [address] Ph: [phone] DIAGNOSTIC IMAGING Diagnostic Imaging Report : [id number] Signed PATIENT: JOHNY SANTACRUZ ACCT: [id number] UNIT: [id number] : 1990 LOC: ER ROOM / BED: / AGE / SEX: 35 / F ADM STATUS: REG ER SERVICE 0041 ORDERING PHYSICIAN: ARTEMIO WALLS DO PROCEDURE(s): CXRP - CHEST PORTABLE REASON: seizure ORDER NUMBER(s): [id number], ACCESSION NUMBER(s): [id number] CHEST RADIOGRAPH INDICATION: seizure TECHNIQUE: Single frontal view of the chest was obtained COMPARISON: XY CHEST PORTABLE on DOS: 05/06/25, XY CHEST PORTABLE on DOS: 04/14/25 FINDINGS: Lines and Tubes: None Lungs: Clear Pleura: No effusion. No pneumothorax. Cardiomediastinal contours: Unremarkable Bones: Unremarkable IMPRESSION: 1. No acute disease. ATED BY: VISH BANKS MD DICTATED DATE/TIME: 05/16/25125 SIGNED BY: VISH BANKS MD SIGNED DATE/TIME: 05/16/25125 CC: Condition at Discharge: Stable Final Diagnosis/Problems List # toxic/metabolic encephalopathy # acute alcohol intoxication # alcohol withdrawal seizure # breakthrough seizure due to alcohol withdrawal # breakthrough seizure # hyponatremia # bipolar disorder # insomnia # autism # psoriasis # treatment noncompliant Discharge Disposition: Home Discharge Instruct/Medications Diet: Regular Activity: Light activity Follow Up/Referral: DC clinic PCP Neurology Medications: As prescribed Scheduled Alprazolam (Alprazolam), 2 MG PO PRN, (Reported) Clonidine Hydrochloride (Clonidine Hcl), 0.1 MG PO DAILY, (Reported) Lamotrigine (Lamictal), 25 MG PO DAILY, (Reported) Levetiracetam (Keppra), 500 MG PO BID, (Reported) Levetiracetam (Keppra), 1.5 TAB PO BID Ondansetron Odt 4MG Tab (Zofran Po), 4 MG PO BID Scheduled PRN Acetaminophen (Acetaminophen Er), 650 MG PO TIDPRN PRN Ibuprofen (Ibuprofen), 1 TAB PO TID PRN Discharge Statement: "Patient was advised to return to the ER or call 911 if any headaches, dizziness, shortness of breath, chest pain, abdominal pain, bleeding, fevers, or worsening of medical condition. Patient was counseled about treatment plan, medications, possible side effects, patientverbalized understanding. All questions were answered to the best of my ability. This discharge took greater then 30 minutes in planning, reviewing documentation, counseling the patient, and discussing with other team members." ASSESSMENT ASSESSMENT Assessment Breakthrough seizure Acute alcohol intoxication Acute alcohol withdrawal seizure Visit Coding STANDARD RES Billing Provider: JULIETTE DEVLIN MD Date of Service if different f: May 18, 2025 Common Visit Codes: 02094-ZXE/OBS DISCH DAY >30min TORI CARPIO May 18, 2025 16:01
== END 2025-05-18 23:08 | disposition home or self-care (01) | DRG 100 ==
LOC: EDBD 00:29 → ER 00:29 → OVERFLOW 05:22 → CENTRAL 05:24 → TELE-CENTR 05-17 19:54
PROVIDERS: ADMIT Student in an Organized Health Care Education/Training Program; ATTEND Student in an Organized Health Care Education/Training Program
DX: G40.909 Epilepsy, unspecified, not intractable, without status epilepticus (principal); G92.8 Other toxic encephalopathy; F31.9 Bipolar disorder, unspecified; F84.0 Autistic disorder; Z20.822 Contact with and (suspected) exposure to COVID-19; L40.9 Psoriasis, unspecified; G47.00 Insomnia, unspecified; T51.91XA Toxic effect of unspecified alcohol, accidental (unintentional), initial encounter; Z88.8 Allergy status to other drugs, medicaments and biological substances; Y92.89 Other specified places as the place of occurrence of the external cause; Z91.148 Patient's other noncompliance with medication regimen for other reason
CPT/HCPCS: 36415; 70450; 71045; 80048; 80053; 80307; 80320; 81001; 82306; 82542; 82550; 82607; 82746; 83036; 83605; 83735; 84295; 84443; 84484; 85025; 85610; 85730; 87081; 87426; 87804; 96365; 96375; G0378; J2405; J2470; J3480; J7060

== ENCOUNTER 2025-05-21 23:07 | Inpatient (IN) | payer BC ==
[~2025-05-21] VITALS: Ht 157.5 cm; Wt 50.0 kg
[~2025-05-21 23:07] MED LIST changes: +ALPR2TAB6 PO; +CLON0.1T PO; +LAMO25TA2 PO; +LEVE500T40 PO
[2025-05-21] MEDS: SODIUM CHLORIDE 0.9% 1,000 ML IV ONE (23:15)
[2025-05-21] MEDS ORDERED: ONDANSETRON HCL 4 MG/2 ML VIAL IV ONE (23:15)
[2025-05-22] LABS: Hematocrit 40.7 % (36.0-46.0); Hemoglobin 13.7 g/dL (12.2-16.2); Mean Corpuscular Hemoglobin 30.2 pg (28.0-32.0); Mean Corpuscular Volume 89.9 fL (80.0-100.0); Nucleated Red Blood Cells % 0.0 %
[2025-05-22 00:12] LABS: Chloride 106 mmol/L (98-107); Potassium 3.8 mmol/L (3.5-5.1); Sodium 143 mmol/L (136-145)
[2025-05-22 00:13] LABS: Anion Gap 11 (5-15); Calcium 9.5 mg/dL (8.7-10.4); Carbon Dioxide 26 mmol/L (20-31)
[2025-05-22 00:18] LABS: BUN/Creatinine Ratio 11.8 (10.0-20.0); Glucose 79 mg/dL (74-106)
[2025-05-22] MEDS: ONDANSETRON ODT 4 MG TAB PO ONE (00:20)
[2025-05-22] MEDS: LORazepam 0.5 MG TAB PO ONE (00:27)
[2025-05-22 00:29] LABS: Blood Urea Nitrogen 8 mg/dL (9-23)
[2025-05-22 00:49] VITALS: O2SAT 99
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
[2025-05-22] MEDS: KETOROLAC TROMETH 30 MG/ML 1ML VIAL IV ONE (02:41)
[2025-05-22] MEDS: levETIRAcetam 1000 mg/100ml 100 ML IV ONE (02:41)
[2025-05-22] MEDS: SODIUM CHLORIDE 0.9% 1,000 ML IV ONE (02:41)
[2025-05-22] MEDS ORDERED: ALBUTEROL SULF 2.5 MG/0.5ML(0.5%) NEB SOLN NEB PRN (03:00)
[2025-05-22] MEDS ORDERED: ONDANSETRON HCL 4 MG/2 ML VIAL IV PRN (03:00)
[2025-05-22] MEDS ORDERED: IPRATROPIUM BROM 0.5 MG/2.5ML INH SOL NEB PRN (03:00)
[2025-05-22] MEDS ORDERED: DOCUSATE SOD 100 MG CAP PO PRN (03:00)
[2025-05-22] MEDS ORDERED: HYDROcodone-ACET 5/325MG TAB PO PRN (03:00)
[2025-05-22] MEDS ORDERED: ACETAMINOPHEN 325 MG TAB PO PRN (03:00)
[2025-05-22] MEDS: PROCHLORPERAZINE EDISYLATE 5 MG/ML 2ML VIAL IV ONE (03:00)
[2025-05-22] MEDS: FOLIC ACID 1 MG in D5W 5% 50 ML INJ ONE (03:00)
[2025-05-22] MEDS: THIAMINE 100mg/ml INJ (200mg/2ml VIAL) IV ONE (03:39)
[2025-05-22 03:43] VITALS: BP 99/67; PULSE 67; RESP 13; TEMP 97.3; O2SAT 99
[2025-05-22] MEDS ORDERED: NITROGLYCERIN 0.4 MG SL TAB SL PRN (03:45)
[2025-05-22] MEDS ORDERED: MORPHINE SULFATE INJ 2 MG/ml SYRG IV PRN (03:45)
--- NOTE | 2025-05-22 03:45 | DVHHP2 ---
History of Present Illness Reason for Visit: Seizure disorder History of Present Illness The patient is a 35-year-old female with past medical history of alcohol abuse, seizure, and anxiety who presented to [facility] ED for evaluation of generalized weakness. Patient reports that she drank heavy alcohol all day, started having seizures activity and periods of confusion. Patient was recently seen at this hospital 3 days ago and discharged on May 18, 2025 with no new medications. Patient was seen and evaluated in the ED, laboratory data shows WBC 5.7, platelets 275, sodium 143, potassium 3.8, BUN 8, creatinine 0.68, GFR 116, glucose 79, calcium 9.5, alcohol 273.3, blood pressure 99/67, heart rate 68, temperature 97.6 F, O2 saturation 99% on oxygen. Please see medication orders section in the computer. On my assessment, patient denied chest pain, no headache, dizziness, diaphoresis, no seizures activity, shortness of breaths, no diarrhea, nausea, vomiting, fever, no chills. Patient was admitted for further evaluation and medical management. Past Medical History EtOH abuse, Anxiety, Seizures Past Surgical History Denies all surgeries Family History Reviewed, noncontributory to the management of this case. Past Social History The patient lives at home, smokes cigarettes less than 1 pack per day, drinks alcohol heavily, denies illicit drugs abuse. Review of Systems Constitutional: Yes: Weakness; No: Fever, Chills, Sweats, Malaise, Other Eyes: No: Pain, Vision change, Conjunctivae inflammation, Eyelid inflammation, Other, Redness ENT: No: Ear pain, Ear discharge, Nose pain, Nose discharge, Nose congestion, Mouth pain, Mouth swelling, Throat pain, Throat swelling, Other Respiratory: No: Cough, Dry, Shortness of breath, SOB with excertion, Wheezing, Hemoptysis, Pleuritic Pain, Sputum, Wheezing, Other Cardiovascular: No: Chest Pain, Palpitations, Orthopnea, Paroxysmal Noc. Dyspnea, Edema, Lt Headedness, Other Gastrointestinal: No: Nausea, Vomiting, Abdominal Pain, Diarrhea, Constipation, Melena, Hematochezia, Other Genitourinary: No Dysuria, No Frequency, No Incontinence, No Hematuria, No Retention, No Other Musculoskeletal: No: other, neck pain, shoulder pain, arm pain, back pain, hand pain, leg pain, foot pain Skin: No: Rash, Lesions, Jaundice, Bruising, Other Neurological: Seizures; No: Weakness, Numbness, Incoordination, Change in speech, Confusion, Other Allergies: Uncoded Allergies: ANTIHISTAMINES (Allergy, Unknown, 05/21/25) Medications Current Medications Medications Dose Ordered Sig/Josephine Route Start Time Stop Time Status Last Admin Dose Admin Levetiracetam 100 ml @ 400 mls/hr BID IV 05/22/25 10:00 Albuterol 2.5 mg Q4HPRN PRN NEB 05/22/25 03:00 Ipratropium Success 0.5 mg Q4HPRN PRN NEB 05/22/25 03:00 Thiamine HCl 100 mg DAILY IV 05/22/25 10:00 Folic Acid 1 mg/ Dextrose 50.2 ml @ 200.8 mls/ hr DAILY INJ 05/22/25 10:00 Sodium Chloride 10 ml Q8HR IV 05/22/25 06:00 Acetaminophen/ Hydrocodone Bitart 1 tab Q4HP PRN PO 05/22/25 03:00 Ondansetron HCl 4 mg Q4HP PRN IV 05/22/25 03:00 Docusate Sodium 100 mg BIDPRN PRN PO 05/22/25 03:00 Multivitamins 1 tab DAILY PO 05/22/25 10:00 Acetaminophen 650 mg Q6HP PRN PO 05/22/25 03:00 Exam Vital Signs Vital Signs Date Time Temp Pulse Resp B/P (MAP) Pulse Ox O2 Delivery O2 Flow Rate FiO2 05/22/25 00:49 97.3 67 13 99/67 (78) 99 97.3 05/22/25 00:49 Nasal Cannula* 2 28 General Appearance: Alert, Oriented X3, Cooperative, No acute distress HEENT: Atraumatic, PERRLA, EOMI, Mucous membr. moist/pink Respiratory: Clear to auscultation, Normal air movement Cardiovascular: Regular rate, Normal S1, Normal S2, No murmurs Abdominal: Normal bowel sounds, Soft, No tenderness, No hepatospenomegaly, No masses Extremities: No clubbing, No cyanosis, No edema, Normal pulses, No tenderness/swelling Skin: No rashes, No significant lesion Neuro: Normal speech, Normal tone, Sensation intact, Cranial nerves 3-12 NL, Reflexes 2+, Other (Generalized weakness) Psych/Mental Status: Mental status NL, Mood NL Labs/Xrays Labs Test 05/22/25 03:27 05/21/25 23:42 Range/Units POC Glucose 80 70-106 mg/dl White Blood Count 5.7 4.4-10.8 10^3/uL Red Blood Count 4.53 4.0-5.20 10^6/uL Hemoglobin 13.7 12.2-16.2 g/dL Hematocrit 40.7 # 36.0-46.0 % Mean Corpuscular Volume 89.9 80.0-100.0 fL Mean Corpuscular Hemoglobin 30.2 28.0-32.0 pg Mean Corpuscular Hemoglobin Concent 33.5 32.0-36.0 g/dL Red Cell Distribution Width 13.7 11.8-14.3 % Platelet Count 275 140-450 10^3/uL Mean Platelet Volume 7.1 6.9-10.8 fL Neutrophils (%) (Auto) 56.6 37.0-80.0 % Lymphocytes (%) (Auto) 35.5 10.0-50.0 % Monocytes (%) (Auto) 6.4 0.0-12.0 % Eosinophils (%) (Auto) 0.7 0.0-7.0 % Basophils (%) (Auto) 0.8 0.0-2.0 % Neutrophils # (Auto) 3.2 1.6-8.6 10 ^3/uL Lymphocytes # (Auto) 2.0 0.4-5.4 10 ^3/uL Monocytes # (Auto) 0.4 0-1.3 10 ^3/uL Eosinophils # (Auto) 0 0-0.8 10 ^3/uL Basophils # (Auto) 0 0-0.2 10 ^3/uL Nucleated Red Blood Cells 0.0 % Sodium Level 143 136-145 mmol/L Potassium Level 3.8 3.5-5.1 mmol/L Chloride Level 106 98-107 mmol/L Carbon Dioxide Level 26 20-31 mmol/L Anion Gap 11 5-15 Blood Urea Nitrogen 8 L 9-23 mg/dL Creatinine 0.68 0.550-1.02 mg/dL Glomerular Filtration Rate Calc 116 >90 mL/min BUN/Creatinine Ratio 11.8 10.0-20.0 Serum Glucose 79 74-106 mg/dL Calcium Level 9.5 8.7-10.4 mg/dL Plasma/Serum Blood Alcohol 273.3 H <10 mg/dL SEPSIS Sepsis Screen Date sepsis recognized/suspect: May 21, 2025 Time Sepsis recognized/suspect: 2322 Recent Procedure: No On Antibiotic Therapy: No Respiratory Rate >20: Yes Heart Rate >90: No Temp<36 C (96.8 F) or >38.3 C: No SBP <90 or MAP <65 mmHG: No New Acute Mental Status Change: No Is the patient on CPAP, BIPAP,: No Physician Orders Complete Blood Count (05/22/25 04:00) Comprehensive Metabolic Panel (05/22/25 04:00) Levetiracetam 500 Mg/100ml (Levetiraceta (05/22/25 10:00) Albuterol Medneb (Ventolin Medneb) (05/22/25 03:00) Ipratropium Medneb (Atrovent Medneb) (05/22/25 03:00) Thiamine Inj (05/22/25 10:00) Folic Acid (05/22/25 10:00) Allergies (05/22/25 02:58) Code Status (05/22/25 02:58) Sodium Chloride Lock (Saline Lock Ns) (05/22/25 06:00) Oxygen Per Hour (05/22/25 02:58) Hydrocodone-Acet 5/325mg Tab ([place] 5/32 (05/22/25 03:00) Ondansetron Hcl (Zofran) (05/22/25 03:00) Docusate Sodium Capsule (Colace Capsule) (05/22/25 03:00) Multiple Vitamin Tablet (Mvi Tab) (05/22/25 10:00) Fall Risk Precautions In Place QSHIFT (05/22/25 02:58) Complete Blood Count (05/23/25 04:00) Comprehensive Metabolic Panel (05/23/25 04:00) Cardiac Diet-2gna,Lofat,Lochol (05/22/25 Breakfast) Condition: Serious (05/22/25 02:58) Acetaminophen Tablet (Tylenol Tablet) (05/22/25 03:00) Maintain Bed Rest (05/22/25 02:58) Sequential Compression Device (05/22/25 ) Vital Signs Date Time Temp Pulse Resp B/P (MAP) Pulse Ox O2 Delivery O2 Flow Rate FiO2 05/22/25 00:49 97.3 67 13 99/67 (78) 99 97.3 05/22/25 00:49 99 Nasal Cannula* 2 28 05/21/25 23:17 98.7 74 37 140/91 100 98.7 Laboratory Tests Test 05/21/25 23:42 White Blood Count 5.7 10^3/uL (4.4-10.8) Medications Medications Dose Ordered Sig/Josephine Route Start Time Stop Time Status Last Admin Dose Admin Ketorolac Tromethamine 30 mg ONCE ONCE IV 05/22/25 02:45 05/22/25 02:46 DC 05/22/25 02:41 30 MG Levetiracetam 100 ml @ 400 mls/hr ONCE ONCE IV 05/22/25 02:30 05/22/25 02:44 DC 05/22/25 03:00 400 MLS/HR Lorazepam 0.5 mg ONCE ONCE PO 05/22/25 00:30 05/22/25 00:31 DC 05/22/25 00:27 0.5 MG Ondansetron HCl 4 mg ONCE ONCE PO 05/22/25 00:15 05/22/25 00:16 DC 05/22/25 00:20 4 MG Prochlorperazine Edisylate 5 mg ONCE ONCE IV 05/22/25 02:45 05/22/25 02:46 DC 05/22/25 03:00 5 MG Sodium Chloride 1,000 ml @ 1,000 mls/hr Q1H ONCE IV 05/22/25 02:30 05/22/25 03:29 DC 05/22/25 03:41 1,000 MLS/HR Thiamine HCl 100 mg ONCE ONCE IV 05/22/25 03:00 05/22/25 03:10 DC 05/22/25 03:39 100 MG Assessment/Plan Assessment/Plan Seizure disorder Alcohol abuse Alcohol poisoning Increasing frequency of seizure activity Generalized weakness Noncompliance with medication regimen Toxic effect of unspecified alcohol, undetermined, initial encounter Plan 1. Admit to telemetry unit 2. Breathing treatment 3. Pain control management 4. Management of fluids and electrolytes 5. Consultation for hospitalist 6. Diagnostic tests chest x-ray 7. DVT prophylaxis on SCDs 8. Repeat labs CBC, CMP in a.m. 9. Continue with current medical management 10. Treatment plan discussed with patient and RN. Patient verbalized understanding. Plan discussed with: Patient, Other (RN) My Orders Orders - MISSY MINOR DNP Procedure Category Date Status Time Complete Blood Count LAB 05/22/25 Logged 04:00 Comprehensive LAB 05/22/25 Logged Metabolic Panel 04:00 Levetiracetam 500 PHA 05/22/25 In Process Mg/100ml (Levetiraceta 10:00 Albuterol Medneb PHA 05/22/25 In Process (Ventolin Medneb) 03:00 Ipratropium Medneb PHA 05/22/25 In Process (Atrovent Medneb) 03:00 Thiamine Inj PHA 05/22/25 In Process 10:00 Folic Acid PHA 05/22/25 In Process 10:00 Allergies LISA 05/22/25 In Process 02:58 Code Status CODE 05/22/25 Transmitted 02:58 Sodium Chloride Lock PHA 05/22/25 In Process (Saline Lock Ns) 06:00 Oxygen Per Hour RT 05/22/25 Transmitted 02:58 Hydrocodone-Acet PHA 05/22/25 In Process 5/325mg Tab ([place] 03:00 Ondansetron Hcl PHA 05/22/25 In Process (Zofran) 03:00 Docusate Sodium PHA 05/22/25 In Process Capsule (Colace 03:00 Multiple Vitamin PHA 05/22/25 In Process Tablet (Mvi Tab) 10:00 Fall Risk Precautions LISA 05/22/[address] 02:58 Complete Blood Count LAB 05/23/25 Verified 04:00 Comprehensive LAB 05/23/25 Verified Metabolic Panel 04:00 Cardiac DIET 05/22/25 Transmitted Diet-2gna,Lofat,Lochol Breakfast Condition: Serious LISA 05/22/25 In Process 02:58 Acetaminophen Tablet PHA 05/22/25 In Process (Tylenol Tablet) 03:00 Maintain Bed Rest LISA 05/22/25 In Process 02:58 Sequential LISA 05/22/25 In Process Compression Device Problem List: (1) Seizure disorder (2) Alcohol abuse (3) Alcohol poisoning (4) Increasing frequency of seizure activity (5) Generalized weakness (6) Noncompliance with medication regimen (7) Toxic effect of unspecified alcohol, undetermined, initial encounter Date of Service: May 22, 2025 Billing Provider: MISSY MINOR DNP Common Visit Codes: [id number] INP/OBS CARE (HIGH) MISSY MINOR DNP May 22, 2025 03:45
[2025-05-22 05:00] VITALS: BP 103/70; PULSE 81; RESP 11
[2025-05-22 05:23] VITALS: O2SAT 97
[2025-05-22] MEDS: SODIUM CHLOR 0.9% PF (SALINE LOCK) 10ML VIAL/SYR IV SCH (06:05)
[2025-05-22] MEDS ORDERED: LORazepam 2MG/ML-1ML VIAL IV PRN (09:00)
[2025-05-22] MEDS ORDERED: LORazepam 2MG/ML-1ML VIAL IV ONE (09:00)
[2025-05-22] MEDS ORDERED: THIAMINE 100mg/ml INJ (200mg/2ml VIAL) IV SCH (10:00)
[2025-05-22] MEDS ORDERED: levETIRAcetam 500 mg/100ml 100 ML IV SCH (10:00)
[2025-05-22] MEDS ORDERED: FOLIC ACID 1 MG in D5W 5% 50 ML INJ SCH (10:00)
[2025-05-22] MEDS ORDERED: MULTIPLE VITAMIN TAB PO SCH (10:00)
--- NOTE | 2025-05-22 19:51 | DVHDSRES ---
Discharge Summary Date of Admission Resident Creating Document: KELSEY TYLER May 22, 2025 at 03:44 Date of Discharge: May 22, 2025 Admitting Diagnosis Alcohol intoxication Labs/Diagnostic Data: Laboratory Results Test 05/22/25 03:27 05/21/25 23:42 POC Glucose 80 mg/dl (70-106) White Blood Count 5.7 10^3/uL (4.4-10.8) Red Blood Count 4.53 10^6/uL (4.0-5.20) Hemoglobin 13.7 g/dL (12.2-16.2) Hematocrit 40.7 % (36.0-46.0) Mean Corpuscular Volume 89.9 fL (80.0-100.0) Mean Corpuscular Hemoglobin 30.2 pg (28.0-32.0) Mean Corpuscular Hemoglobin Concent 33.5 g/dL (32.0-36.0) Red Cell Distribution Width 13.7 % (11.8-14.3) Platelet Count 275 10^3/uL (140-450) Mean Platelet Volume 7.1 fL (6.9-10.8) Neutrophils (%) (Auto) 56.6 % (37.0-80.0) Lymphocytes (%) (Auto) 35.5 % (10.0-50.0) Monocytes (%) (Auto) 6.4 % (0.0-12.0) Eosinophils (%) (Auto) 0.7 % (0.0-7.0) Basophils (%) (Auto) 0.8 % (0.0-2.0) Neutrophils # (Auto) 3.2 10 ^3/uL (1.6-8.6) Lymphocytes # (Auto) 2.0 10 ^3/uL (0.4-5.4) Monocytes # (Auto) 0.4 10 ^3/uL (0-1.3) Eosinophils # (Auto) 0 10 ^3/uL (0-0.8) Basophils # (Auto) 0 10 ^3/uL (0-0.2) Nucleated Red Blood Cells 0.0 % Sodium Level 143 mmol/L (136-145) Potassium Level 3.8 mmol/L (3.5-5.1) Chloride Level 106 mmol/L (98-107) Carbon Dioxide Level 26 mmol/L (20-31) Anion Gap 11 (5-15) Blood Urea Nitrogen 8 mg/dL (9-23) Creatinine 0.68 mg/dL (0.550-1.02) Glomerular Filtration Rate Calc 116 mL/min (>90) BUN/Creatinine Ratio 11.8 (10.0-20.0) Serum Glucose 79 mg/dL (74-106) Calcium Level 9.5 mg/dL (8.7-10.4) Plasma/Serum Blood Alcohol 273.3 mg/dL (<10) Other Laboratory Tests 05/21/25 23:42 Brief Hx & Hospital Course: Ms.Nicole Santacruz, a 35-year-old female with past medical history of alcohol abuse, seizure disorder presented to the ER with acute alcohol intoxication. She received treatment with IV fluid, thiamine, banana bag, Ativan. CIWA protocol was maintained. However, before I see the patient patient left against medical advice. Condition at Discharge: Undetermined Final Diagnosis/Problems List Alcohol abuse disorder Acute alcohol intoxication Alcohol withdrawal Seizure disorder Discharge Disposition: AMA Discharge Instruct/Medications Scheduled Alprazolam (Alprazolam), 2 MG PO PRN, (Reported) Clonidine Hydrochloride (Clonidine Hcl), 0.1 MG PO DAILY, (Reported) Lamotrigine (Lamictal), 25 MG PO DAILY, (Reported) Levetiracetam (Keppra), 500 MG PO BID, (Reported) Levetiracetam (Keppra), 1.5 TAB PO BID Ondansetron Odt 4MG Tab (Zofran Po), 4 MG PO BID Scheduled PRN Acetaminophen (Acetaminophen Er), 650 MG PO TIDPRN PRN Ibuprofen (Ibuprofen), 1 TAB PO TID PRN Discharge Statement: "Patient was advised to return to the ER or call 911 if any headaches, dizziness, shortness of breath, chest pain, abdominal pain, bleeding, fevers, or worsening of medical condition. Patient was counseled about treatment plan, medications, possible side effects, patientverbalized understanding. All questions were answered to the best of my ability. This discharge took greater then 30 minutes in planning, reviewing documentation, counseling the patient, and discussing with other team members." ASSESSMENT ASSESSMENT Assessment Visit Coding STANDARD RES Billing Provider: JOEL BOYD MD Date of Service if different f: May 22, 2025 Common Visit Codes: 16254-RTU/OBS SAME DATE (HIGH) KELSEY TYLER May 22, 2025 19:51 JOEL BOYD MD May 22, 2025 23:56
[2025-05-23] MEDS ORDERED: FOLIC ACID 1 MG TAB PO SCH (10:00)
== END 2025-05-22 07:51 | disposition left against medical advice (07) | DRG 918 ==
LOC: EEVIPCON 23:07 → ER 23:07 → EDBD 23:07 → OVERFLOW 05-22 03:44
PROVIDERS: ADMIT Internal Medicine; ATTEND Internal Medicine
DX: T51.91XA Toxic effect of unspecified alcohol, accidental (unintentional), initial encounter (principal); F10.129 Alcohol abuse with intoxication, unspecified; G40.909 Epilepsy, unspecified, not intractable, without status epilepticus; F10.139 Alcohol abuse with withdrawal, unspecified; F17.210 Nicotine dependence, cigarettes, uncomplicated; F41.9 Anxiety disorder, unspecified; Z53.29 Procedure and treatment not carried out because of patient's decision for other reasons; Y90.8 Blood alcohol level of 240 mg/100 ml or more; Z91.148 Patient's other noncompliance with medication regimen for other reason; Z88.8 Allergy status to other drugs, medicaments and biological substances; Y92.89 Other specified places as the place of occurrence of the external cause
CPT/HCPCS: 36415; 80048; 80320; 82962; 85025; 96361; 96365; 96375; G0378; J1885; J7060; Q0162

== ENCOUNTER 2025-05-23 11:22 | Emergency (ER) | payer BC ==
[~2025-05-23] VITALS: Ht 162.6 cm; Wt 55.0 kg
--- NOTE | 2025-05-23 11:35 | ED.PDOC ---
Altered Mental Status HPI Comments 35y F who presents to the ED via EMS for chief complaint of seizure. Per EMS, pt had seizure like activity and pt was found altered by family approx 45 minutes prior to ED arrival and family called EMS. EMS arrived on scene and noted pt was in post-ictal state and was post-ictal upon arrival to the ED. EMS notes has history of seizure disorder and notes pt did not take her Keppra this AM. Pt in the ED, otherwise has no noted oral trauma or loss of bowels or bladder control. Pt otherwise has stable vitals but is not answering any questions. Per prior notes, pt left AMA after being hospitalized on 05/22, 1 days prior with the following note: Ms.Nicole Santacruz, a 35-year-old female with past medical history of alcohol abuse, seizure disorder presented to the ER with acute alcohol intoxication. She received treatment with IV fluid, thiamine, banana bag, Ativan. CIWA protocol was maintained. However, before I see the patient patient left against medical advice. Time Seen by MD: 11:34 Primary Care Provider: Rafael Vieyra Notes: Ethylbenzene Converter Helper Notes, Medications, Allergies Allergies: Uncoded Allergies: ANTIHISTAMINES (Allergy, Unknown, 05/21/25) Home Meds Active Scripts Levetiracetam (Keppra) 500 Mg Tab, 1.5 TAB PO BID for 30 Days, #90 TAB Prov:TORI CARPIO RESIDENT 05/18/25 Ibuprofen (Ibuprofen) 600 Mg Tab, 1 TAB PO TID PRN for 5 Days, #15 TAB Prov:NANCY GEE MD 04/07/25 Acetaminophen (Acetaminophen Er) 650 Mg Tab, 650 MG PO TIDPRN PRN, #15 TAB Prov:NANCY GEE MD 04/07/25 Ondansetron Odt 4MG Tab (ZOFRAN PO) 4 Mg Tb, 4 MG PO BID for 5 Days, #10 TAB ODT TAB-DISSOLVE IN MOUTH, THEN SWALLOW Prov:KELSEY BERNARD RESIDENT 01/26/25 Reported Medications Clonidine Hydrochloride (Clonidine Hcl) 0.1 Mg Tab, 0.1 MG PO DAILY, TAB 05/16/25 Lamotrigine (Lamictal) 25 Mg Tab, 25 MG PO DAILY, TAB 05/16/25 Alprazolam (Alprazolam) 2 Mg Tab, 2 MG PO PRN, #30 TAB 05/16/25 Levetiracetam (Keppra) 500 Mg Tab, 500 MG PO BID, TAB 05/16/25 Information Source: Patient Mode of Arrival: EMS Brought in by: EMS Past Medical History PAST MEDICAL HISTORY: Anxiety, Seizures Surgical History: Denies all surgeries TEXTILE SCRAP SALVAGER History: No Pertinent TEXTILE SCRAP SALVAGER History Family History Family History: Reviewed,noncontributory to illness Social History Smoker: Cigarettes, Less Than 1 Pack/Day Alcohol: Heavy Drugs: Denies Drug Use Lives In: Home Constitutional: denies: chills, diaphoresis, fatigue, fever, malaise, sweats, weakness, others EENTM: denies: blurred vision, double vision, ear bleeding, ear discharge, ear drainage, ear pain, ear ringing, eye pain, eye redness, hearing loss, mouth pain, mouth swelling, nasal discharge, nose bleeding, nose congestion, nose pain, photophobia, tearing, throat pain, throat swelling, voice changes, others Respiratory: denies: cough, hemoptysis, orthopnea, SOB at rest, shortness of breath, SOB with excertion, stridor, wheezing, others Cardiovascular: denies: chest pain, dizzy spells, diaphoresis, Dyspnea on exertion, edema, irregular heart beat, left arm pain, lightheadedness, palpitations, PND, syncope, others Gastrointestinal: denies: abdomen distended, abdominal pain, blood streaked bowels, constipated, diarrhea, dysphagia, difficulty swallowing, hematemesis, melena, nausea, poor appetite, poor fluid intake, rectal bleeding, rectal pain, vomiting, others Genitourinary: denies: abnormal vagina bleeding, burning, dyspareunia, dysuria, flank pain, frequency, hematuria, incontinence, pain, , vagina discharge, urgency, others Neurological: reports: seizure; denies: dizziness, fainting, headache, left sided numbness, left sided weakness, numbness, paresthesia, pre-existing deficit, right sided numbness, right sided weakness, speech problems, tingling, tremors, weakness, others Musculoskeletal: denies: back pain, gout, joint pain, joint swelling, muscle pain, muscle stiffness, neck pain, others Integumetry: denies: bruises, change in color, change in hair/nails, dryness, laceration, lesions, lumps, rash, wounds, others Allergic/Immunocompromised: denies: Difficulty Healing, Frequent Infections, Hives, Itching, others Hematologic/Lymphatic: denies: anemia, blood clots, easy bleeding, easy bruising, swollen glands, others Endocrine: denies: excessive hunger, excessive sweating, excessive thirst, excessive urination, flushing, intolerance to cold, intolerance to heat, unexplained weight gain, unexplained weight loss, others Psychiatric: denies: anxiety, bipolar disorder, depression, hopeless, panic disorder, schizophrenia, sleepless, suicidal, others All Other Systems: Reviewed and Negative Physical Exam General Appearance: Moderate Distress HEENT: Normal ENT Inspection, Pharynx Normal, TMs Normal Neck: Full Range of Motion, Non-Tender, Normal, Normal Inspection Respiratory: Chest Non-Tender, Lungs Clear, No Accessory Muscle Use, No Respiratory Distress, Normal Breath Sounds Cardiovascular: No Edema, No JVD, No Murmur, No Gallop, Normal Peripheral Pulses, Regular Rate/Rhythm Breast Exam: Deferred Gastrointestinal: No Organomegaly, Non Tender, No Pulsatile Mass, Normal Bowel Sounds, Soft Genitalia: Deferred Pelvic: Deferred Rectal: Deferred Extremities: No calf tenderness, Normal capillary refill, Normal inspection, Normal range of motion, Non-tender, No pedal edema Musculoskeletal : Apperance: Normal Neurologic: Alert, director of midwifery/staff midwife II-XII nml as Tested, No Motor Deficits, Normal Affect, Normal Mood, No Sensory Deficits Cerebellar Function: Normal Reflexes: Normal Skin: Dry, Normal Color, Warm Peripheral Pulses: 3+ Radial (R), 3+ Radial (L) Lymphatic: No Adenopathy Was a procedure done? Was a procedure done?: No Differential Diagnosis (ALOC) Differential Diagnosis: Dehydration, Encephalopathy, Seizure, Drug Overdose, ETOH Intoxication X-Ray, Labs, Meds, VS Vital Signs Date Time Temp Pulse Resp B/P (MAP) Pulse Ox O2 Delivery O2 Flow Rate FiO2 05/23/25 12:37 97.1 82 20 117/86 100 97.1 Lab Test 05/23/25 11:50 Range/Units White Blood Count 5.0 4.4-10.8 10^3/uL Red Blood Count 4.37 4.0-5.20 10^6/uL Hemoglobin 13.3 12.2-16.2 g/dL Hematocrit 39.0 36.0-46.0 % Mean Corpuscular Volume 89.1 80.0-100.0 fL Mean Corpuscular Hemoglobin 30.5 28.0-32.0 pg Mean Corpuscular Hemoglobin Concent 34.2 32.0-36.0 g/dL Red Cell Distribution Width 13.6 11.8-14.3 % Platelet Count 272 140-450 10^3/uL Mean Platelet Volume 6.9 6.9-10.8 fL Neutrophils (%) (Auto) 42.5 37.0-80.0 % Lymphocytes (%) (Auto) 47.0 10.0-50.0 % Monocytes (%) (Auto) 7.7 0.0-12.0 % Eosinophils (%) (Auto) 2.0 0.0-7.0 % Basophils (%) (Auto) 0.8 0.0-2.0 % Neutrophils # (Auto) 2.1 1.6-8.6 10 ^3/uL Lymphocytes # (Auto) 2.4 0.4-5.4 10 ^3/uL Monocytes # (Auto) 0.4 0-1.3 10 ^3/uL Eosinophils # (Auto) 0.1 0-0.8 10 ^3/uL Basophils # (Auto) 0 0-0.2 10 ^3/uL Nucleated Red Blood Cells 0.1 % Sodium Level 143 136-145 mmol/L Potassium Level 3.9 3.5-5.1 mmol/L Chloride Level 107 98-107 mmol/L Carbon Dioxide Level 27 20-31 mmol/L Anion Gap 9 5-15 Blood Urea Nitrogen < 5 L 9-23 mg/dL Creatinine 0.54 L 0.550-1.02 mg/dL Glomerular Filtration Rate Calc 123 >90 mL/min BUN/Creatinine Ratio 9.3 L 10.0-20.0 Serum Glucose 77 74-106 mg/dL Calcium Level 9.1 8.7-10.4 mg/dL Current Medications Medications (Trade) Dose Ordered Sig/Josephine Route Start Time Stop Time Status Last Admin Levetiracetam 100 ml @ 400 mls/hr ONCE ONCE IV 05/23/25 11:45 05/23/25 11:59 DC 05/23/25 12:03 Lorazepam (Ativan Inj) 1 mg ONCE ONCE IV 05/23/25 11:40 05/23/25 12:03 DC 05/23/25 11:40 Patient alert. No sign of distress. She has a history of seizures. Was given Keppra. Was given Ativan. Insists on leaving. Time of 1ST Reevaluation: 12:05 Reevaluation 1ST: Unchanged Patient Education/Counseling: Other (pt altered, pt is post-ictal) Family Education/Counseling: No Family Present SEPSIS Sepsis Screen Physician Orders Urinalysis (05/23/25 11:36) Sodium Chloride 0.9% (05/23/25 11:45) Sodium Chloride 0.9% (05/23/25 11:45) Vital Signs Date Time Temp Pulse Resp B/P (MAP) Pulse Ox O2 Delivery O2 Flow Rate FiO2 05/23/25 12:37 97.1 82 20 117/86 100 97.1 Laboratory Tests Test 05/23/25 11:50 White Blood Count 5.0 10^3/uL (4.4-10.8) Medications Medications Dose Ordered Sig/Josephine Route Start Time Stop Time Status Last Admin Dose Admin Levetiracetam 100 ml @ 400 mls/hr ONCE ONCE IV 05/23/25 11:45 05/23/25 11:59 DC 05/23/25 12:03 Lorazepam 1 mg ONCE ONCE IV 05/23/25 11:40 05/23/25 12:03 DC 05/23/25 11:40 Departure 1 Departure Time of Disposition: 18:09 Impression: Primary Impression: Generalized tonic-clonic seizure Disposition: 30 STILL A PATIENT Condition: Good Discharged With: Self Critical Care Note Critical Care Time?: Yes (90 min-critical care time only) Stability Stability form required: No Heart Score Heart Score: Heart Score Response (Comments) Value History N/A 0 EKG N/A 0 Age N/A 0 Risk Factors N/A 0 Troponin N/A 0 Total 0 I personally scribed for RUSH VIDALES MD ([email or web address]) on 05/23/25 at 11:35. Electronically submitted by Susana Tipton ([facility]). RUSH VIDALES MD May 23, 2025 11:35
[2025-05-23] MEDS: LORazepam 2MG/ML-1ML VIAL IV ONE (11:40)
[2025-05-23] MEDS ORDERED: SODIUM CHLORIDE 0.9% 1,000 ML IV ONE ×4 (11:45)
[2025-05-23 12:03] LABS: Hematocrit 39.0 % (36.0-46.0); Hemoglobin 13.3 g/dL (12.2-16.2); Mean Corpuscular Hemoglobin 30.5 pg (28.0-32.0); Mean Corpuscular Volume 89.1 fL (80.0-100.0); Nucleated Red Blood Cells % 0.1 %
[2025-05-23] MEDS: LORazepam 2MG/ML-1ML VIAL ONE (12:03)
[2025-05-23] MEDS: levETIRAcetam 1000 mg/100ml 100 ML IV ONE (12:03)
[2025-05-23 12:13] LABS: Chloride 107 mmol/L (98-107); Potassium 3.9 mmol/L (3.5-5.1); Sodium 143 mmol/L (136-145)
[2025-05-23 12:14] LABS: Anion Gap 9 (5-15); Carbon Dioxide 27 mmol/L (20-31)
[2025-05-23 12:15] LABS: Calcium 9.1 mg/dL (8.7-10.4)
[2025-05-23 12:20] LABS: Glucose 77 mg/dL (74-106)
[2025-05-23 12:21] LABS: BUN/Creatinine Ratio 9.3 (10.0-20.0); Blood Urea Nitrogen < 5 mg/dL (9-23)
[2025-05-23 12:37] VITALS: BP 117/86; PULSE 82; RESP 20; TEMP 97.1; O2SAT 100
== END 2025-05-23 12:20 | disposition left against medical advice (07) ==
LOC: ER 11:22 → EDBD 11:22 → ER 12:20
DX: G40.909 Epilepsy, unspecified, not intractable, without status epilepticus (principal); F41.9 Anxiety disorder, unspecified; F10.129 Alcohol abuse with intoxication, unspecified; F17.210 Nicotine dependence, cigarettes, uncomplicated; Z79.899 Other long term (current) drug therapy; Y90.9 Presence of alcohol in blood, level not specified
CPT/HCPCS: 36415; 80048; 85025; 96365; 96375; 99291; J1953; J2060

== ENCOUNTER 2025-05-27 23:59 | Emergency (ER) | payer BC ==
[~2025-05-27] VITALS: Ht 172.7 cm; Wt 63.5 kg
[2025-05-28 00:13] VITALS: BP 115/84; PULSE 98; RESP 14; TEMP 97.5; O2SAT 95
[2025-05-28 00:53] LABS: Hematocrit 41.7 % (36.0-46.0); Hemoglobin 14.1 g/dL (12.2-16.2); Mean Corpuscular Hemoglobin 29.9 pg (28.0-32.0); Mean Corpuscular Volume 88.7 fL (80.0-100.0); Nucleated Red Blood Cells % 0.1 %
[2025-05-28 01:11] LABS: Alanine Aminotransferase 14 U/L (7-40); Albumin 4.7 g/dL (3.2-4.8); Alkaline Phosphatase 56 U/L (46-116); Anion Gap 9 (5-15); BUN/Creatinine Ratio 14.5 (10.0-20.0); Calcium 9.6 mg/dL (8.7-10.4); Carbon Dioxide 30 mmol/L (20-31); Chloride 105 mmol/L (98-107); Glucose 84 mg/dL (74-106); Potassium 3.8 mmol/L (3.5-5.1); Sodium 144 mmol/L (136-145); Total Protein 7.7 g/dL (5.7-8.2)
[2025-05-28 01:22] LABS: Bilirubin, Total 0.3 mg/dL (0.2-1.0); Blood Urea Nitrogen 8 mg/dL (9-23)
--- NOTE | 2025-05-28 01:29 | ED.PDOC ---
History of Present Illness HPI Comments 17-whop-iij-female, with a history of seizures, is [id number] ambulance for c/c of multiple seizure episodes. Per EMS personnel report, patient had 4x unwitnessed seizure episodes at-home after drinking 2x White Claw shots, this morning. Initial blood glucose of 79 and O2 saturation of 100%RA. No signs of trauma or incontinence. Patient remained post-ictal until arrival at ED, where she had 2x in the EMS bay receiving area and 1x during gurney-bed transfer prior to evaluation. Further history is limited, due to patient's current clinical presentation post-ictal and absence of family/environmental studies professor historians. Chief Complaint: Seizure Time Seen by MD: 01:20 Primary Care Provider: Rafael Vieyra Notes: Nurses Notes, Market Survey Representative Notes, Medications, Allergies Allergies: Uncoded Allergies: ANTIHISTAMINES (Allergy, Unknown, 05/21/25) Home Meds Active Scripts Levetiracetam (Keppra) 500 Mg Tab, 1.5 TAB PO BID for 30 Days, #90 TAB Prov:TORI CARPIO RESIDENT 05/18/25 Ibuprofen (Ibuprofen) 600 Mg Tab, 1 TAB PO TID PRN for 5 Days, #15 TAB Prov:NANCY GEE MD 04/07/25 Acetaminophen (Acetaminophen Er) 650 Mg Tab, 650 MG PO TIDPRN PRN, #15 TAB Prov:NANCY GEE MD 04/07/25 Ondansetron Odt 4MG Tab (ZOFRAN PO) 4 Mg Tb, 4 MG PO BID for 5 Days, #10 TAB ODT TAB-DISSOLVE IN MOUTH, THEN SWALLOW Prov:KELSEY BERNARD RESIDENT 01/26/25 Reported Medications Clonidine Hydrochloride (Clonidine Hcl) 0.1 Mg Tab, 0.1 MG PO DAILY, TAB 05/16/25 Lamotrigine (Lamictal) 25 Mg Tab, 25 MG PO DAILY, TAB 05/16/25 Alprazolam (Alprazolam) 2 Mg Tab, 2 MG PO PRN, #30 TAB 05/16/25 Levetiracetam (Keppra) 500 Mg Tab, 500 MG PO BID, TAB 05/16/25 Information Source: Patient, Emergency Med Personnel Mode of Arrival: EMS Severity: Moderate Timing: Hours Duration: Minutes Prehospital treatment: 12 Lead EKG, Accucheck, Tube Coverer Past Medical History PAST MEDICAL HISTORY: Anxiety, Seizures Surgical History: Denies all surgeries GREASE RENDERER History: No Pertinent GREASE RENDERER History Family History Family History: Reviewed,noncontributory to illness Social History Smoker: Cigarettes, Less Than 1 Pack/Day Alcohol: Heavy Drugs: Denies Drug Use Lives In: Home All Other Systems: Reviewed and Negative (As per HPI) Physical Exam General Appearance: No Apparent Distress, Normal HEENT: Normal ENT Inspection, Pharynx Normal, TMs Normal Neck: Full Range of Motion, Non-Tender, Normal, Normal Inspection Respiratory: Chest Non-Tender, Lungs Clear, No Accessory Muscle Use, No Respiratory Distress, Normal Breath Sounds Cardiovascular: No Edema, No JVD, No Murmur, No Gallop, Normal Peripheral Pulses, Regular Rate/Rhythm Breast Exam: Deferred Gastrointestinal: No Organomegaly, Non Tender, No Pulsatile Mass, Normal Bowel Sounds, Soft Genitalia: Deferred Pelvic: Deferred Rectal: Deferred Extremities: No calf tenderness, Normal capillary refill, Normal inspection, Normal range of motion, Non-tender, No pedal edema Musculoskeletal : Apperance: Normal Neurologic: Other (Patient is post-ictal ) Cerebellar Function: Normal Reflexes: Normal Skin: Dry, Normal Color, Warm Lymphatic: No Adenopathy Was a procedure done? Was a procedure done?: No Differential Dx Considerations may include: seizures - status vs breakthrough, alcohol-induced, substance abuse/dependency, dehydration, electrolyte imbalance, among others X-Ray, Labs, Meds, VS Vital Signs Date Time Temp Pulse Resp B/P (MAP) Pulse Ox O2 Delivery O2 Flow Rate FiO2 05/28/25 00:13 97.5 98 14 115/84 (94) 95 97.5 05/28/25 00:13 14 95 Room Air* 0 21 05/28/25 00:11 98.9 100 18 124/80 100 98.9 Lab Test 05/28/25 00:42 Range/Units White Blood Count 7.2 # 4.4-10.8 10^3/uL Red Blood Count 4.70 4.0-5.20 10^6/uL Hemoglobin 14.1 12.2-16.2 g/dL Hematocrit 41.7 36.0-46.0 % Mean Corpuscular Volume 88.7 80.0-100.0 fL Mean Corpuscular Hemoglobin 29.9 28.0-32.0 pg Mean Corpuscular Hemoglobin Concent 33.7 32.0-36.0 g/dL Red Cell Distribution Width 13.6 11.8-14.3 % Platelet Count 303 140-450 10^3/uL Mean Platelet Volume 6.9 6.9-10.8 fL Neutrophils (%) (Auto) 52.6 37.0-80.0 % Lymphocytes (%) (Auto) 41.2 10.0-50.0 % Monocytes (%) (Auto) 3.6 0.0-12.0 % Eosinophils (%) (Auto) 1.8 0.0-7.0 % Basophils (%) (Auto) 0.8 0.0-2.0 % Neutrophils # (Auto) 3.8 1.6-8.6 10 ^3/uL Lymphocytes # (Auto) 2.9 0.4-5.4 10 ^3/uL Monocytes # (Auto) 0.3 0-1.3 10 ^3/uL Eosinophils # (Auto) 0.1 0-0.8 10 ^3/uL Basophils # (Auto) 0.1 0-0.2 10 ^3/uL Nucleated Red Blood Cells 0.1 % Sodium Level 144 136-145 mmol/L Potassium Level 3.8 3.5-5.1 mmol/L Chloride Level 105 98-107 mmol/L Carbon Dioxide Level 30 20-31 mmol/L Anion Gap 9 5-15 Blood Urea Nitrogen 8 L 9-23 mg/dL Creatinine 0.55 0.550-1.02 mg/dL Glomerular Filtration Rate Calc 123 >90 mL/min BUN/Creatinine Ratio 14.5 10.0-20.0 Serum Glucose 84 74-106 mg/dL Calcium Level 9.6 8.7-10.4 mg/dL Total Bilirubin 0.3 0.2-1.0 mg/dL Aspartate Amino Transferase (AST) 15 13-40 U/L Alanine Aminotransferase (ALT) 14 7-40 U/L Alkaline Phosphatase 56 46-116 U/L Total Protein 7.7 5.7-8.2 g/dL Albumin 4.7 3.2-4.8 g/dL Plasma/Serum Blood Alcohol 279.5 H <10 mg/dL Time of 1ST Reevaluation: 02:30 Reevaluation 1ST: Unchanged Patient Education/Counseling: Diagnosis, Treatment Family Education/Counseling: No Family Present SEPSIS Sepsis Screen Date sepsis recognized/suspect: May 28, 2025 Time Sepsis recognized/suspect: 005 Recent Procedure: No On Antibiotic Therapy: No Respiratory Rate >20: No Heart Rate >90: No Temp<36 C (96.8 F) or >38.3 C: No SBP <90 or MAP <65 mmHG: No New Acute Mental Status Change: No Is the patient on CPAP, BIPAP,: No Physician Orders Seizure Precautions (05/28/25 ) Vital Signs Date Time Temp Pulse Resp B/P (MAP) Pulse Ox O2 Delivery O2 Flow Rate FiO2 05/28/25 00:13 97.5 98 14 115/84 (94) 95 97.5 05/28/25 00:13 14 95 Room Air* 0 21 05/28/25 00:11 98.9 100 18 124/80 100 98.9 Laboratory Tests Test 05/28/25 00:42 White Blood Count 7.2 10^3/uL (4.4-10.8) # Departure 1 Departure Time of Disposition: 04:30 Impression: Primary Impression: Alcohol abuse Additional Impressions: Seizure Seizure disorder Disposition: ADMITTED INPATIENT Admit to: Med Surg Condition: Guarded Discharged With: Self Critical Care Note Critical Care Time?: No Stability Stability form required: No Heart Score Heart Score: Heart Score Response (Comments) Value History N/A 0 EKG N/A 0 Age N/A 0 Risk Factors N/A 0 Troponin N/A 0 Total 0 I personally scribed for LYNN SPENCE MD ([email or web address]) on 05/28/25 at 01:29. Electronically submitted by Ernie Mathis ([email or web address]). LYNN SPENCE MD May 28, 2025 01:29
== END 2025-05-28 00:54 | disposition left against medical advice (07) ==
LOC: EDBD 23:59 → ER 23:59
DX: G40.909 Epilepsy, unspecified, not intractable, without status epilepticus (principal); F41.9 Anxiety disorder, unspecified; F10.10 Alcohol abuse, uncomplicated; F17.210 Nicotine dependence, cigarettes, uncomplicated; Z79.899 Other long term (current) drug therapy; Y90.9 Presence of alcohol in blood, level not specified
CPT/HCPCS: 36415; 80053; 80320; 85025

== ENCOUNTER 2025-05-29 22:28 | Emergency (ER) | payer BC ==
[~2025-05-29] VITALS: Ht 167.6 cm; Wt 54.4 kg
[2025-05-29 22:43] VITALS: BP 106/59; TEMP 97.9
[2025-05-29 22:44] VITALS: PULSE 89; RESP 12; O2SAT 96
== END 2025-05-29 23:01 | disposition left against medical advice (07) ==
LOC: EDBD 22:28 → ER 22:28
DX: R56.9 Unspecified convulsions (principal); Z79.899 Other long term (current) drug therapy